=== PATIENT | male | born 1950 | race Caucasian/White ===

== ENCOUNTER 2022-01-07 07:55 | Outpatient (CLI) | payer MEDICARE, BC, SELFPAY | END 2022-01-07 07:56 | disposition home or self-care (01) | LOC: RAD 07:56 | PROVIDERS: PCP Family Medicine; Visit Provider Nurse Practitioner Gerontology | DX: I48.0 Paroxysmal atrial fibrillation (principal) | CPT/HCPCS: 93306 ==

== ENCOUNTER 2022-03-08 08:15 | Outpatient (CLI) | payer MEDICARE, BC, SELFPAY ==
--- NOTE | 2022-03-08 08:15 | CRLHL7_ITS ---
For Patients: As a result of the 21st Century Cures Act, medical imaging exams and procedure reports are released immediately into your electronic medical record. You may view this report before your referring provider. If you have questions, please contact your health care provider. INDICATION: Myelopathy. COMPARISON: 02/05/2021. Technique Sagittal T1, T2, and STIR sequences. Axial T1 and T2 weighted sequences. FINDINGS: Stable mild lumbar curve convex the left. In sagittal plane, grade 2 anterolisthesis of L4 on L5 measured approximately 10 mm. Associated bilateral pars defects. Otherwise, normal alignment. No fractures. No vertebral body loss of height. No ligament injury. No suspicious osseous lesions. Number conus terminates at L1. Congenitally short pedicles contributes to overall narrowed caliber of the spinal canal. T11-12: Disc degeneration posterior disc bulge. Mild narrowing of spinal canal. No neural foraminal narrowing. T12-L1: Disc degeneration post disc bulge. Mild narrowing of spinal canal. No neural foraminal narrowing. Moderate facet arthropathy. L1-2: Disc degeneration. Posterior disc bulge. Moderate narrowing of the spinal canal. No neural foraminal narrowing. Mild facet arthropathy. L2-3: Disc generation posted disc bulge. Moderate narrowing of spinal canal. No neural foraminal narrowing. Mild facet arthropathy. L3-4: Disc degeneration posterior disc bulge. Mild narrowing of spinal canal. Moderate right and clgt-mc-kngvtueu left neural foraminal narrowing. Moderate facet arthropathy. L4-5: Grade 2 anterolisthesis. Advanced disc degeneration. Fusion across the interspace. Unroofed posterior disc bulge. Mild narrowing of spinal canal. Oblique orientation of the bilateral foramina with severe right and moderate severe left neural foraminal narrowing. Impingement of the exiting L4 nerve roots, right greater left. Severe facet arthropathy. L5-S1: Disc degeneration diffuse disc bulge eccentric to the left. No narrowing of spinal canal. No impingement of the traversing S1 nerve roots. Moderate to severe narrowing of the bilateral foramina. Potential impingement of the L5 nerve roots. IMPRESSION: 1. Stable mild lumbar curve convex to the left. 2. Stable grade 2 anterolisthesis of L4 on L5. Associated bilateral pars defects. Otherwise, normal alignment. 3. No acute fractures. 4. Lumbar spondylosis. 5. Congenital short pedicles. 6. At L1-2, moderate narrowing of spinal canal. 7. At L2-3, moderate narrowing of spinal canal. 8. At L3-4, moderate right and rtyt-kj-ywensmep left neural foraminal narrowing. 9. At L4-5, advanced disc degeneration. Mild narrowing of spinal canal. Severe right and moderate to severe left neural foraminal narrowing. Impingement of the exiting L4 nerve roots, right greater than left. 10. At L5-S1, moderate to severe narrowing of the bilateral foramina. Potential impingement of the L5 nerve roots Dictated by Lambert Tang MD @ 03/08/2022 5:03:32 PM (Electronically Signed)
--- NOTE | 2022-03-08 09:00 | CRLHL7_ITS ---
For Patients: As a result of the 21st Century Cures Act, medical imaging exams and procedure reports are released immediately into your electronic medical record. You may view this report before your referring provider. If you have questions, please contact your health care provider. 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 Comparison: None Findings: Near-complete fusion of the L4-5 vertebral bodies noted. 15 millimeters of anterior position of the L4 vertebral body noted in relation to L5 secondary to chronic bilateral pars defects at L4. Extensive discogenic spurring elsewhere throughout the lumbar spine with near complete bridging at L3-4 and L5-S1. Vacuum disc phenomenon noted at L3-4 and L2-3. Extensive anterior spurring also noted at the thoracolumbar junction. Hypertrophic changes to spinous processes noted throughout the lumbar spine. There is no paraspinal soft tissue mass. Vascular calcifications are noted. At L1-2, there is mild bilateral foraminal stenosis and mild canal stenosis secondary to minimal bulging of the disc. At L2-3, there is mild bilateral foraminal stenosis and mild canal stenosis secondary to minimal bulging of the disc with posterior ridging. At L3-4, there is mild-moderate left foraminal stenosis and moderate right foraminal stenosis along with mild canal stenosis secondary to a diffuse disc bulge with posterior ridging and facet degeneration. At L4-5, there is moderately severe right foraminal stenosis and moderate left foraminal stenosis. A diffuse disc bulge is present. The canal is narrowed in the transverse dimension but is widely patent in the AP dimension. At L5-S1, there is moderate bilateral foraminal narrowing and mild canal stenosis secondary to a diffuse disc bulge with posterior ridging. Impression: Osseous fusion at the L4-5 disc space with 15 millimeters of anterior position of the L4 vertebral body in relation to the L5 vertebral body. Associated diffuse disc bulge noted at this level contributing to moderately severe right foraminal stenosis and moderate left foraminal stenosis. The canal is narrowed in the transverse dimension but is patent in the AP dimension. Multilevel degenerative disc disease throughout the remainder of the lumbar spine with exuberant anterior spurring. Moderate bilateral foraminal stenosis L5-S1 and moderate foraminal stenosis on the right at L3-4. Please note that all CT scans at this facility use dose modulation, iterative reconstruction, and/or weight-based dosing when appropriate to reduce radiation dose to as low as reasonably achievable. Dictated by Aden Benavides MD @ 03/08/2022 11:36:14 AM (Electronically Signed)
== END 2022-03-08 08:16 | disposition home or self-care (01) ==
LOC: MRI 08:15
PROVIDERS: PCP Family Medicine; Visit Provider Neurological Surgery
DX: M47.817 Spondylosis without myelopathy or radiculopathy, lumbosacral region (principal); M51.36 Other intervertebral disc degeneration, lumbar region; M48.07 Spinal stenosis, lumbosacral region; M51.26 Other intervertebral disc displacement, lumbar region; G95.9 Disease of spinal cord, unspecified
CPT/HCPCS: 72131; 72148

== ENCOUNTER 2022-05-17 07:15 | Outpatient (CLI) | payer MEDICARE, BC, SELFPAY | END 2022-05-17 07:16 | disposition home or self-care (01) | PROVIDERS: PCP Family Medicine; Visit Provider Family Medicine | DX: M48.062 Spinal stenosis, lumbar region with neurogenic claudication (principal); M54.16 Radiculopathy, lumbar region | CPT/HCPCS: 62323; J0702; Q9966 ==

== ENCOUNTER 2022-08-09 07:33 | Outpatient (CLI) | payer MEDICARE, BC, SELFPAY | END 2022-08-09 07:34 | disposition home or self-care (01) | LOC: INJ CL 07:35 | PROVIDERS: PCP Family Medicine; Visit Provider Family Medicine | DX: M54.16 Radiculopathy, lumbar region (principal); M48.062 Spinal stenosis, lumbar region with neurogenic claudication | CPT/HCPCS: 62323; J0702; Q9966 ==

== ENCOUNTER 2022-11-22 08:13 | Outpatient (CLI) | payer MEDICARE, BC, SELFPAY | END 2022-11-22 08:14 | disposition home or self-care (01) | LOC: INJ CL 08:14 | PROVIDERS: PCP Family Medicine; Visit Provider Family Medicine | DX: M54.16 Radiculopathy, lumbar region (principal); M48.062 Spinal stenosis, lumbar region with neurogenic claudication | CPT/HCPCS: 62323; J0702; Q9966 ==

== ENCOUNTER 2023-01-13 08:05 | Outpatient (CLI) | payer MEDICARE, BC, SELFPAY ==
--- NOTE | 2023-01-13 08:15 | CRLHL7_ITS ---
For Patients: As a result of the Century Cures Act, medical imaging exams and procedure reports are released immediately into your electronic medical record. You may view this report before your referring provider. If you have questions, please contact your health care provider. Indication: Low back pain. Technique: Multiplanar, multisequence MRI of the lumbar spine was performed without intravenous contrast. Comparison: MRI lumbar spine 03/08/2022. Findings: There are 5 lumbar type vertebral segments identified. The vertebral body heights are maintained without evidence of fracture. There is no discrete T1 hypointense marrow infiltrating process. Mild levoconvex curvature. The conus medullaris terminates at L1, normal. Cauda equina appears unremarkable. T12-L1: Mild disc degeneration. Disc bulge with facet hypertrophy resultant mild spinal canal narrowing. No neural foraminal narrowing. Vglc-tp-dzudgpxp facet arthropathy. Stable. L1-2: Disc degeneration. Disc bulge with facet hypertrophy results in mild spinal canal narrowing. No neural foraminal narrowing. Paio-gg-yirlbuco facet arthropathy. Stable. L2-3: Disc degeneration. Disc bulge coupled with facet hypertrophy result in mild spinal canal narrowing. Mild neural foraminal narrowing. Moderate facet arthropathy. Stable. L3-4: Grade 1 degenerative retrolisthesis. Disc degeneration. Disc bulge with facet hypertrophy resulting in mild spinal canal narrowing. Moderate neural foraminal narrowing. Moderate facet arthropathy. L4-5: Grade 2 anterolisthesis secondary to chronic bilateral pars interarticularis defects. Interspace fusion. Moderate to severe spinal canal with moderate to severe neural foraminal stenosis. L5-S1: Grade 1 degenerative retrolisthesis. Mild spinal canal narrowing. Moderate to severe neural foraminal narrowing. Moderate facet arthropathy. Stable. Mild sacroiliac joint osteoarthritis. Left renal cysts. Impression: 1. At L4-5, stable grade 2 anterolisthesis secondary to chronic bilateral pars interarticularis defects. Moderate to severe spinal canal and neural foraminal stenosis. 2. At L5-S1, stable moderate to severe neural foraminal stenosis. 3. Stable vzmt-ib-tpzsoisi spondylosis at the remaining lumbar levels. Dictated by Rao Sainz MD @ 01/16/2023 9:04:47 AM (Electronically Signed)
== END 2023-01-13 08:06 | disposition home or self-care (01) ==
LOC: MRI 08:06
PROVIDERS: PCP Family Medicine; Visit Provider Orthopaedic Surgery Orthopaedic Surgery of the Spine
DX: M54.50 Low back pain, unspecified (principal); M51.36 Other intervertebral disc degeneration, lumbar region; M46.1 Sacroiliitis, not elsewhere classified; N28.1 Cyst of kidney, acquired; M48.062 Spinal stenosis, lumbar region with neurogenic claudication
CPT/HCPCS: 72148

== ENCOUNTER 2023-03-12 16:06 | Emergency (ER) | payer MEDICARE, BC, SELFPAY ==
[2023-03-12] VITALS (49 sets, daily range): BP systolic 90–173; BP diastolic 41–93; PULSE 83–115; RESP 20; TEMP 37.6–38.6; O2SAT 88–99; BMI 37.7
--- NOTE | 2023-03-12 16:38 | CRLHL7_ITS ---
For Patients: As a result of the Cures Act, medical imaging exams and procedure reports are released immediately into your electronic medical record. You may view this report before your referring provider. If you have questions, please contact your health care provider. INDICATION: Fever. History of lumbar decompression. TECHNIQUE: CT images acquired through the thoracic spine following intravenous contrast. COMPARISON: None. FINDINGS: Mildly exaggerated thoracic kyphosis. Mild biconvex thoracic curvature. Mild grade 1 anterolisthesis of T3 on T4, T4 and T5, and T5 on T6. Advanced multilevel disc height loss. Prominent anterior osteophytes in the mid to lower thoracic spine. No acute fracture. Multilevel posterior disc bulging contributes up to at least oylc-eo-rkmnogrp spinal canal narrowing at T10-11. Advanced multilevel facet arthropathy contributes to advanced neural foraminal stenosis bilaterally at T1-2, right T3-4, bilateral T9-10, left T10-11, and right T11-12. No paraspinal fluid collection. No endplate destruction. No concerning opacities in the visualized lungs. IMPRESSION: 1. No paraspinal fluid collection. No endplate destruction to suggest sequelae of discitis osteomyelitis. 2. No acute fracture. 3. Advanced multilevel thoracic spondylosis. Please note that all CT scans at this facility use dose modulation, iterative reconstruction, and/or weight-based dosing when appropriate to reduce radiation dose to as low as reasonably achievable. Dictated by Isiah Schwarz MD @ 03/12/2023 7:50:46 PM (Electronically Signed)
--- NOTE | 2023-03-12 16:38 | CRLHL7_ITS ---
For Patients: As a result of the Century Cures Act, medical imaging exams and procedure reports are released immediately into your electronic medical record. You may view this report before your referring provider. If you have questions, please contact your health care provider. INDICATION: Fever. Lumbar decompression. TECHNIQUE: CT images acquired through the lumbar spine following intravenous contrast. COMPARISON: MRI lumbar spine 01/13/2023. FINDINGS: Postsurgical changes secondary to interval posterior instrumented fusion and laminectomy at L1-2. Standard positioning and alignment of intact and well-seated paired pedicle screws and connecting rods. Immature dorsal bone grafting. Fluid collection within the superficial posterior subcutaneous tissues at midline measuring approximately up to 5.3 cm in craniocaudal dimension. No endplate destruction to suggest sequelae of discitis osteomyelitis. The lumbar lordosis is preserved. Mild leftward lumbar curvature. No acute fracture. Multilevel posterior disc bulging and endplate spondylitic ridging. Kins-tj-rkuaoihx multilevel facet arthropathy. No high-grade spinal canal stenosis. Grade 2 anterolisthesis and vertebral body ankylosis at L4-5. Chronic bilateral L4 pars defects. Advanced right greater left neural foraminal stenosis at L4-5. Moderately severe neural foraminal stenosis on the right at L5-S1. Sacroiliac joint degenerative changes. Incompletely visualized left hip prosthesis. Hypoattenuating lesion in the left kidney superior pole, potentially representing a renal cyst. IMPRESSION: 1. Postsurgical changes secondary to interval posterior instrumented fusion and laminectomy at L1-2. Intact well-seated surgical hardware. Fluid collection within the posterior subcutaneous soft tissues at the operative level is nonspecific, though differential considerations include seroma or superimposed infection in an appropriate clinical setting. No endplate erosion to suggest sequelae of discitis osteomyelitis. 2. No acute fracture. 3. Multilevel lumbar spondylosis. Please note that all CT scans at this facility use dose modulation, iterative reconstruction, and/or weight-based dosing when appropriate to reduce radiation dose to as low as reasonably achievable. Dictated by Isiah Schwarz MD @ 03/12/2023 7:59:15 PM (Electronically Signed)
[2023-03-12 16:43] LABS: Creatinine, Point-of-Care* 1.1 mg/dl (0.6-1.3)
--- NOTE | 2023-03-12 16:45 | ED.GENADULT ---
HPI - General Adult General Date Seen: 03/12/23 <Christopher Arrington - Last Filed: 03/13/23 00:53> Chief complaint: Post Op Complication <Christopher Batsheva Murphy - Last Filed: 03/13/23 00:53> Stated complaint: fever, surgery incision possibly infected <Christopher Arrington - Last Filed: 03/13/23 00:53> Time Seen by Provider: 03/12/23 16:32 <Christopher Arrington DO - Last Filed: 03/13/23 00:53> Source: patient <Christopher Arrington - Last Filed: 03/13/23 00:53> Mode of arrival: ambulatory <Christopher Arrington - Last Filed: 03/13/23 00:53> Limitations: no limitations <Christopher Arrington - Last Filed: 03/13/23 00:53> History of Present Illness HPI narrative: Patient is a 72-year-old male with a history of high blood pressure presenting to the emergency department for fevers and chills. He had back surgery felt L1-L2 decompression and fusion on 02/23/2023 at [facility]. He was discharged the following day. Had a drain in place for about a week after that that was removed. Since then he says he feels dizzy he has been doing all right. Does not have follow-up with his surgeon until April. Noticed today he is having fever and chills that started about 3 hours prior to arrival. Says his pain seems mildly worse than it has been but not severely. Has not taken any Tylenol for pain yet today. Family states they believe the area around the incision site is slightly more red than was previously. Patient denies chest pain, shortness of breath, abdominal pain, lightheadedness, dizziness, weakness, headache, vision changes. They did note mother week ago he had some serosanguineous discharge coming from a small area on the incision site that has stopped. <Christopher Arrington DO - Last Filed: 03/13/23 00:53> Related Data Home medications: Home Medications Medication Instructions Recorded Confirmed apixaban 5 mg tablet (Eliquis) 5 mg PO BID 03/12/23 03/12/23 diltiazem HCl 240 mg 240 mg PO DAILY 03/12/23 03/12/23 capsule,extended release 24 hr, controlled hydrochlorothiazide 25 mg tablet 25 mg PO DAILY 03/12/23 03/12/23 losartan 100 mg tablet 100 mg PO DAILY 03/12/23 03/12/23 tamsulosin 0.4 mg capsule 0.8 mg PO DAILY 03/12/23 03/12/23 methocarbamol 750 mg tablet 750 mg PO Q6H PRN muscle spasm 03/14/23 03/14/23 oxycodone 5 mg tablet 5 - 10 mg PO Q4H PRN 03/14/23 03/14/23 sennosides 8.6 mg-docusate sodium 1 - 4 tab-cap PO BID PRN 03/14/23 03/14/23 50 mg capsule (Senna Plus) <Christopher Arrington DO - Last Filed: 03/13/23 00:53> Allergies/adverse reactions: Allergies Allergy/AdvReac Type Severity Reaction Status Date / Time cefdinir Allergy Verified 11/22/22 08:26 clarithromycin Allergy Verified 11/22/22 08:26 lisinopril Allergy Verified 11/22/22 08:26 <Christopher Arrington DO - Last Filed: 03/13/23 00:53> Review of Systems Status of ROS: Reports: 10 or more systems reviewed and unremarkable except as noted in History and below <Christopher Arrington DO - Last Filed: 03/13/23 00:53> PFSH [facility] Social History: Social History Smoking Status: Never smoker How often do you have a drink containing alcohol: never How often do you have six or more drinks on one occasion: Never AUDIT-C Alcohol total score: 0 Non-prescribed substance use: denies use <Christopher Arrington DO - Last Filed: 03/13/23 00:53> Exam Narrative: Exam Narrative: Const: Well-nourished, Well-developed, in moderate distress, shivering Eyes: PERRL, no conjunctival injection, and symmetrical lids HENT: Atraumatic external nose and ears. Moist mucous membranes. Neck: Symmetric, trachea midline, No thyromegaly. CVS: RRR, No murmurs or gallops. Peripheral pulses 2+ and equal in all extremities RESP: Unlabored respiratory effort. Clear to auscultation bilaterally. GI: Nontender/Nondistended, No rebound or guarding. MSK:Extremities w/o deformity, Normal Active ROM Skin: Warm, Dry. Erythema seen around the incision site on his back but no signs of purulent discharge Neuro: Normal Muscle tone, No focal neurological deficits. Psych: Awake, Alert, & Oriented x3. Appropriate mood and affect. <Christopher Arrington, DO - Last Filed: 03/13/23 00:53> Const: Vital Signs, click to edit/add: Vital Signs - 24 hr 03/14/23 13:00 03/14/23 13:01 03/14/23 13:15 Temperature Pulse Rate 58 L 61 58 L Pulse Rate [Pulse Oximeter] Respiratory Rate Blood Pressure 112/102 H Blood Pressure [Ri ght Upper Arm] Pulse Oximetry 96 93 94 Oxygen Delivery Me thod 03/14/23 13:39 03/14/23 14:02 03/14/23 14:45 Temperature 98.4 F Pulse Rate 65 Pulse Rate [Pulse Oximeter] Respiratory Rate Blood Pressure 112/57 L Blood Pressure [Ri ght Upper Arm] Pulse Oximetry 96 Oxygen Delivery Me thod 03/14/23 17:24 03/14/23 17:28 03/14/23 18:13 Temperature 98.3 F Pulse Rate Pulse Rate [Pulse Oximeter] Respiratory Rate Blood Pressure 97/39 L 113/65 Blood Pressure [Ri ght Upper Arm] Pulse Oximetry Oxygen Delivery Me thod 03/14/23 21:48 03/14/23 22:01 03/14/23 23:02 Temperature Pulse Rate Pulse Rate [Pulse Oximeter] Respiratory Rate Blood Pressure 117/64 106/65 101/53 L Blood Pressure [Ri ght Upper Arm] Pulse Oximetry Oxygen Delivery Me thod 03/15/23 01:10 03/15/23 01:14 03/15/23 08:00 Temperature 98.8 F 98.3 F Pulse Rate 64 Pulse Rate [Pulse Oximeter] 60 Respiratory Rate 20 16 Blood Pressure 131/82 Blood Pressure [Ri ght Upper Arm] 106/59 L Pulse Oximetry 98 94 Oxygen Delivery Me thod Room Air 03/15/23 10:00 03/15/23 11:50 Temperature 98.4 F Pulse Rate Pulse Rate [Pulse Oximeter] 66 61 Respiratory Rate 16 16 Blood Pressure Blood Pressure [Ri ght Upper Arm] 129/67 132/79 Pulse Oximetry 96 96 Oxygen Delivery Me thod Room Air Room Air <Christopher Arrington DO - Last Filed: 03/13/23 00:53> Vital Signs, click to edit/add: Vital Signs - 24 hr 03/14/23 13:00 03/14/23 13:01 03/14/23 13:15 Temperature Pulse Rate 58 L 61 58 L Pulse Rate [Pulse Oximeter] Respiratory Rate Blood Pressure 112/102 H Blood Pressure [Ri ght Upper Arm] Pulse Oximetry 96 93 94 Oxygen Delivery Me thod 03/14/23 13:39 03/14/23 14:02 03/14/23 14:45 Temperature 98.4 F Pulse Rate 65 Pulse Rate [Pulse Oximeter] Respiratory Rate Blood Pressure 112/57 L Blood Pressure [Ri ght Upper Arm] Pulse Oximetry 96 Oxygen Delivery Me thod 03/14/23 17:24 03/14/23 17:28 03/14/23 18:13 Temperature 98.3 F Pulse Rate Pulse Rate [Pulse Oximeter] Respiratory Rate Blood Pressure 97/39 L 113/65 Blood Pressure [Ri ght Upper Arm] Pulse Oximetry Oxygen Delivery Me thod 03/14/23 21:48 03/14/23 22:01 03/14/23 23:02 Temperature Pulse Rate Pulse Rate [Pulse Oximeter] Respiratory Rate Blood Pressure 117/64 106/65 101/53 L Blood Pressure [Ri ght Upper Arm] Pulse Oximetry Oxygen Delivery Me thod 03/15/23 01:10 03/15/23 01:14 03/15/23 08:00 Temperature 98.8 F 98.3 F Pulse Rate 64 Pulse Rate [Pulse Oximeter] 60 Respiratory Rate 20 16 Blood Pressure 131/82 Blood Pressure [Ri ght Upper Arm] 106/59 L Pulse Oximetry 98 94 Oxygen Delivery Me thod Room Air 03/15/23 10:00 03/15/23 11:50 Temperature 98.4 F Pulse Rate Pulse Rate [Pulse Oximeter] 66 61 Respiratory Rate 16 16 Blood Pressure Blood Pressure [Ri ght Upper Arm] 129/67 132/79 Pulse Oximetry 96 96 Oxygen Delivery Me thod Room Air Room Air <Nhi Avalos MD - Last Filed: 03/13/23 18:55> Vital Signs, click to edit/add: Vital Signs - 24 hr 03/14/23 13:00 03/14/23 13:01 03/14/23 13:15 Temperature Pulse Rate 58 L 61 58 L Pulse Rate [Pulse Oximeter] Respiratory Rate Blood Pressure 112/102 H Blood Pressure [Ri ght Upper Arm] Pulse Oximetry 96 93 94 Oxygen Delivery Me thod 03/14/23 13:39 03/14/23 14:02 03/14/23 14:45 Temperature 98.4 F Pulse Rate 65 Pulse Rate [Pulse Oximeter] Respiratory Rate Blood Pressure 112/57 L Blood Pressure [Ri ght Upper Arm] Pulse Oximetry 96 Oxygen Delivery Me thod 03/14/23 17:24 03/14/23 17:28 03/14/23 18:13 Temperature 98.3 F Pulse Rate Pulse Rate [Pulse Oximeter] Respiratory Rate Blood Pressure 97/39 L 113/65 Blood Pressure [Ri ght Upper Arm] Pulse Oximetry Oxygen Delivery Me thod 03/14/23 21:48 03/14/23 22:01 03/14/23 23:02 Temperature Pulse Rate Pulse Rate [Pulse Oximeter] Respiratory Rate Blood Pressure 117/64 106/65 101/53 L Blood Pressure [Ri ght Upper Arm] Pulse Oximetry Oxygen Delivery Me thod 03/15/23 01:10 03/15/23 01:14 03/15/23 08:00 Temperature 98.8 F 98.3 F Pulse Rate 64 Pulse Rate [Pulse Oximeter] 60 Respiratory Rate 20 16 Blood Pressure 131/82 Blood Pressure [Ri ght Upper Arm] 106/59 L Pulse Oximetry 98 94 Oxygen Delivery Me thod Room Air 03/15/23 10:00 03/15/23 11:50 Temperature 98.4 F Pulse Rate Pulse Rate [Pulse Oximeter] 66 61 Respiratory Rate 16 16 Blood Pressure Blood Pressure [Ri ght Upper Arm] 129/67 132/79 Pulse Oximetry 96 96 Oxygen Delivery Me thod Room Air Room Air <Aden Coorna MD - Last Filed: 03/15/23 11:42> Vital Signs, click to edit/add: Vital Signs - 24 hr 03/14/23 13:00 03/14/23 13:01 03/14/23 13:15 Temperature Pulse Rate 58 L 61 58 L Pulse Rate [Pulse Oximeter] Respiratory Rate Blood Pressure 112/102 H Blood Pressure [Ri ght Upper Arm] Pulse Oximetry 96 93 94 Oxygen Delivery Me thod 03/14/23 13:39 03/14/23 14:02 03/14/23 14:45 Temperature 98.4 F Pulse Rate 65 Pulse Rate [Pulse Oximeter] Respiratory Rate Blood Pressure 112/57 L Blood Pressure [Ri ght Upper Arm] Pulse Oximetry 96 Oxygen Delivery Me thod 03/14/23 17:24 03/14/23 17:28 03/14/23 18:13 Temperature 98.3 F Pulse Rate Pulse Rate [Pulse Oximeter] Respiratory Rate Blood Pressure 97/39 L 113/65 Blood Pressure [Ri ght Upper Arm] Pulse Oximetry Oxygen Delivery Me thod 03/14/23 21:48 03/14/23 22:01 03/14/23 23:02 Temperature Pulse Rate Pulse Rate [Pulse Oximeter] Respiratory Rate Blood Pressure 117/64 106/65 101/53 L Blood Pressure [Ri ght Upper Arm] Pulse Oximetry Oxygen Delivery Me thod 03/15/23 01:10 03/15/23 01:14 03/15/23 08:00 Temperature 98.8 F 98.3 F Pulse Rate 64 Pulse Rate [Pulse Oximeter] 60 Respiratory Rate 20 16 Blood Pressure 131/82 Blood Pressure [Ri ght Upper Arm] 106/59 L Pulse Oximetry 98 94 Oxygen Delivery Me thod Room Air 03/15/23 10:00 03/15/23 11:50 Temperature 98.4 F Pulse Rate Pulse Rate [Pulse Oximeter] 66 61 Respiratory Rate 16 16 Blood Pressure Blood Pressure [Ri ght Upper Arm] 129/67 132/79 Pulse Oximetry 96 96 Oxygen Delivery Me thod Room Air Room Air <Dennis Calderon MD - Last Filed: 03/14/23 16:23> Vital Signs, click to edit/add: Vital Signs - 24 hr 03/14/23 13:00 03/14/23 13:01 03/14/23 13:15 Temperature Pulse Rate 58 L 61 58 L Pulse Rate [Pulse Oximeter] Respiratory Rate Blood Pressure 112/102 H Blood Pressure [Ri ght Upper Arm] Pulse Oximetry 96 93 94 Oxygen Delivery Me thod 03/14/23 13:39 03/14/23 14:02 03/14/23 14:45 Temperature 98.4 F Pulse Rate 65 Pulse Rate [Pulse Oximeter] Respiratory Rate Blood Pressure 112/57 L Blood Pressure [Ri ght Upper Arm] Pulse Oximetry 96 Oxygen Delivery Me thod 03/14/23 17:24 03/14/23 17:28 03/14/23 18:13 Temperature 98.3 F Pulse Rate Pulse Rate [Pulse Oximeter] Respiratory Rate Blood Pressure 97/39 L 113/65 Blood Pressure [Ri ght Upper Arm] Pulse Oximetry Oxygen Delivery Me thod 03/14/23 21:48 03/14/23 22:01 03/14/23 23:02 Temperature Pulse Rate Pulse Rate [Pulse Oximeter] Respiratory Rate Blood Pressure 117/64 106/65 101/53 L Blood Pressure [Ri ght Upper Arm] Pulse Oximetry Oxygen Delivery Me thod 03/15/23 01:10 03/15/23 01:14 03/15/23 08:00 Temperature 98.8 F 98.3 F Pulse Rate 64 Pulse Rate [Pulse Oximeter] 60 Respiratory Rate 20 16 Blood Pressure 131/82 Blood Pressure [Ri ght Upper Arm] 106/59 L Pulse Oximetry 98 94 Oxygen Delivery Me thod Room Air 03/15/23 10:00 03/15/23 11:50 Temperature 98.4 F Pulse Rate Pulse Rate [Pulse Oximeter] 66 61 Respiratory Rate 16 16 Blood Pressure Blood Pressure [Ri ght Upper Arm] 129/67 132/79 Pulse Oximetry 96 96 Oxygen Delivery Me thod Room Air Room Air <Amadeo Richmond MD - Last Filed: 03/17/23 08:23> Vital Signs, click to edit/add: Vital Signs - 24 hr 03/14/23 13:00 03/14/23 13:01 03/14/23 13:15 Temperature Pulse Rate 58 L 61 58 L Pulse Rate [Pulse Oximeter] Respiratory Rate Blood Pressure 112/102 H Blood Pressure [Ri ght Upper Arm] Pulse Oximetry 96 93 94 Oxygen Delivery Me thod 03/14/23 13:39 03/14/23 14:02 03/14/23 14:45 Temperature 98.4 F Pulse Rate 65 Pulse Rate [Pulse Oximeter] Respiratory Rate Blood Pressure 112/57 L Blood Pressure [Ri ght Upper Arm] Pulse Oximetry 96 Oxygen Delivery Me thod 03/14/23 17:24 03/14/23 17:28 03/14/23 18:13 Temperature 98.3 F Pulse Rate Pulse Rate [Pulse Oximeter] Respiratory Rate Blood Pressure 97/39 L 113/65 Blood Pressure [Ri ght Upper Arm] Pulse Oximetry Oxygen Delivery Me thod 03/14/23 21:48 03/14/23 22:01 03/14/23 23:02 Temperature Pulse Rate Pulse Rate [Pulse Oximeter] Respiratory Rate Blood Pressure 117/64 106/65 101/53 L Blood Pressure [Ri ght Upper Arm] Pulse Oximetry Oxygen Delivery Me thod 03/15/23 01:10 03/15/23 01:14 03/15/23 08:00 Temperature 98.8 F 98.3 F Pulse Rate 64 Pulse Rate [Pulse Oximeter] 60 Respiratory Rate 20 16 Blood Pressure 131/82 Blood Pressure [Ri ght Upper Arm] 106/59 L Pulse Oximetry 98 94 Oxygen Delivery Me thod Room Air 03/15/23 10:00 03/15/23 11:50 Temperature 98.4 F Pulse Rate Pulse Rate [Pulse Oximeter] 66 61 Respiratory Rate 16 16 Blood Pressure Blood Pressure [Ri ght Upper Arm] 129/67 132/79 Pulse Oximetry 96 96 Oxygen Delivery Me thod Room Air Room Air <Tomás Atwood MD - Last Filed: 04/11/23 08:03> Course Reevaluation(s) Time of Reevaluation #1: 08:19 <Nhi Avalos MD - Last Filed: 03/13/23 18:55> Reevaluation #1: Have her introduce myself to the patient, checked on him briefly. He is alert, interactive, no apparent distress. He is febrile this morning. Confirmed with him that they do not want him on NSAIDs due to his spinal surgery, he did have both cadaver and his own bone used in the surgery. Thus, he is to be avoiding NSAIDs for 3 months. We have him on scheduled Tylenol. Did find out that he is on Eliquis and diltiazem for underlying history of atrial fibrillation. He states he has had an ablation prior but is maintained on these medicines. He has been taking his Eliquis. Will give him his morning doses which would include his diltiazem and Eliquis, may need to hold after this morning dose though. His MRI with IV contrast has been moved up due to a cancellation. <Nhi Avalos MD - Last Filed: 03/13/23 18:55> Time of Reevaluation #2: 16:57 <Nhi Avalos MD - Last Filed: 03/13/23 18:55> Reevaluation #2: Let patient know we are still waiting to hear from [facility] for bed placement. He is to expect of blood draw for labs, will be rechecking some of his labs including white blood count, C reactive protein, basic metabolic panel. He remains hemodynamically stable, still is spiking fevers at times. Did review to hold his Eliquis at this time, will likely be having surgery in the very near future. Patient's notes that he also takes losartan at bedtime. They withheld at last night, would see where his blood pressures are but likely will be holding. <Nhi Avalos MD - Last Filed: 03/13/23 18:55> Time of Reevaluation #3: 07:00 <Aden Corona MD - Last Filed: 03/15/23 11:42> Reevaluation #3: Chloe -- Received Mr. Rasheed in handoff at change of shift. Pending transport to [facility]. Septicemia. Likely source surgery in the lumbar spine. Pressures have been stable overnight. Afebrile. Has received scheduled Zosyn and vancomycin. Has not required any intervention for pain. Wound continues to drain with believe 3 dressing changes overnight. He reports he has managed to sleep. Still NPO at this time. Pending morning labs. <Aden Corona MD - Last Filed: 03/15/23 11:42> Additional Reevaluation(s): Re-evaluated now, at 10:30 a.m., patient reports that he is doing better, in him both requested information on what is ongoing, explained to him that overall is parameters are improved, with vital signs markedly improved, white count improving, CRP still elevated, and MRI consistent with a postoperative infection, with rim enhancement. Is 1. On the transfer list [facility] as requested by his spine surgeon, they are in agreement with this, we will continue with ongoing medication, he has not needed any pain medication. Re-evaluated at 4:22 p.m., I had spoken to his physicians at the [facility], he still on the waiting list at [facility], would like them to transfer room to [facility], but reassessment tomorrow, if he still not able to be transferred [facility] by tomorrow, then consideration of transfer to [facility] as Dr. Vigil has a OR time there later in the week. This is communicated to the oncoming physician Dr. De, who is taking over care. I did restart his home medications, had pharmacy do a consult, he was on Eliquis, we will hold this, as he will likely go to the ER, and give him subcutaneous heparin, twice daily, <Dennis Calderon MD - Last Filed: 03/14/23 16:23> Re-evaluated now, at 10:30 a.m., patient reports that he is doing better, in him both requested information on what is ongoing, explained to him that overall is parameters are improved, with vital signs markedly improved, white count improving, CRP still elevated, and MRI consistent with a postoperative infection, with rim enhancement. Is 1. On the transfer list [facility] as requested by his spine surgeon, they are in agreement with this, we will continue with ongoing medication, he has not needed any pain medication. Re-evaluated at 4:22 p.m., I had spoken to his physicians at the [facility], he still on the waiting list at [facility], would like them to transfer room to [facility], but reassessment tomorrow, if he still not able to be transferred [facility] by tomorrow, then consideration of transfer to [facility] as Dr. Vigil has a OR time there later in the week. This is communicated to the oncoming physician Dr. De, who is taking over care. I did restart his home medications, had pharmacy do a consult, he was on Eliquis, we will hold this, as he will likely go to the ER, and give him subcutaneous heparin, twice daily, 12:30 a.m. assumed care from Dr. De. Briefly, 72-year-old male who underwent lumbar diskectomy and decompression with fusion at L1-L2 on a couple weeks ago, presents with increasing pain as well as fever and chills. CRP elevated, white blood cell count elevated to 17,000 on initial arrival. Patient is getting vancomycin. Blood cultures positive for Gram-positive cocci. Patient is waiting for transfer to [facility], surgery was done [facility] but surgeon would prefer to have him at [facility]. If no beds available tomorrow morning, consider transfer to [facility]. <Amadeo Richmond MD - Last Filed: 03/17/23 08:23> Consultations Consultation #1: Spoke with on-call spine surgeon Dr. Vicente from [facility]. Reviewed the current MRI, patient is admittedly hemodynamically stable at this time. His surgeon was in clinic with her, she did speak with Dr. Vigil. He wants him at [facility] and not [facility], he will be still on the wait list at this time. Will update them when I have time to let them know my conversation with the surgeon. <Nhi Avalos MD - Last Filed: 03/13/23 18:55> Time: 15:16 <Nhi Avalos MD - Last Filed: 03/13/23 18:55> Vital Signs Vital signs: Initial Vital Signs Temperature 100.3 F H 03/12/23 16:22 Temperature Source Temporal Artery Scan 03/12/23 16:22 Pulse Rate 103 H 03/12/23 16:22 Respiratory Rate 20 03/12/23 16:22 Blood Pressure 144/91 H 03/12/23 16:22 Blood Pressure Mean 108 H 03/12/23 16:22 Pulse Oximetry 97 03/12/23 16:22 Vital Signs Temperature 100.3 F H 03/12/23 16:22 Pulse Rate 103 H 03/12/23 16:22 Respiratory Rate 20 03/12/23 16:22 Blood Pressure 144/91 H 03/12/23 16:22 Pulse Oximetry 97 03/12/23 16:22 Temperature 98.5 F 03/15/23 19:00 Pulse Rate 73 03/15/23 19:00 Respiratory Rate 16 03/15/23 19:00 Blood Pressure 119/58 L 03/15/23 19:00 Pulse Oximetry 96 03/15/23 19:00 Oxygen Delivery Method Room Air 03/15/23 19:00 <Christopher Arrington DO - Last Filed: 03/13/23 00:53> Initial Vital Signs Temperature 100.3 F H 03/12/23 16:22 Temperature Source Temporal Artery Scan 03/12/23 16:22 Pulse Rate 103 H 03/12/23 16:22 Respiratory Rate 20 03/12/23 16:22 Blood Pressure 144/91 H 03/12/23 16:22 Blood Pressure Mean 108 H 03/12/23 16:22 Pulse Oximetry 97 03/12/23 16:22 Vital Signs Temperature 100.3 F H 03/12/23 16:22 Pulse Rate 103 H 03/12/23 16:22 Respiratory Rate 20 03/12/23 16:22 Blood Pressure 144/91 H 03/12/23 16:22 Pulse Oximetry 97 03/12/23 16:22 Temperature 98.5 F 03/15/23 19:00 Pulse Rate 73 03/15/23 19:00 Respiratory Rate 16 03/15/23 19:00 Blood Pressure 119/58 L 03/15/23 19:00 Pulse Oximetry 96 03/15/23 19:00 Oxygen Delivery Method Room Air 03/15/23 19:00 <Nhi Avalos MD - Last Filed: 03/13/23 18:55> Initial Vital Signs Temperature 100.3 F H 03/12/23 16:22 Temperature Source Temporal Artery Scan 03/12/23 16:22 Pulse Rate 103 H 03/12/23 16:22 Respiratory Rate 20 03/12/23 16:22 Blood Pressure 144/91 H 03/12/23 16:22 Blood Pressure Mean 108 H 03/12/23 16:22 Pulse Oximetry 97 03/12/23 16:22 Vital Signs Temperature 100.3 F H 03/12/23 16:22 Pulse Rate 103 H 03/12/23 16:22 Respiratory Rate 20 03/12/23 16:22 Blood Pressure 144/91 H 03/12/23 16:22 Pulse Oximetry 97 03/12/23 16:22 Temperature 98.5 F 03/15/23 19:00 Pulse Rate 73 03/15/23 19:00 Respiratory Rate 16 03/15/23 19:00 Blood Pressure 119/58 L 03/15/23 19:00 Pulse Oximetry 96 03/15/23 19:00 Oxygen Delivery Method Room Air 03/15/23 19:00 <Aden Corona MD - Last Filed: 03/15/23 11:42> Initial Vital Signs Temperature 100.3 F H 03/12/23 16:22 Temperature Source Temporal Artery Scan 03/12/23 16:22 Pulse Rate 103 H 03/12/23 16:22 Respiratory Rate 20 03/12/23 16:22 Blood Pressure 144/91 H 03/12/23 16:22 Blood Pressure Mean 108 H 03/12/23 16:22 Pulse Oximetry 97 03/12/23 16:22 Vital Signs Temperature 100.3 F H 03/12/23 16:22 Pulse Rate 103 H 03/12/23 16:22 Respiratory Rate 20 03/12/23 16:22 Blood Pressure 144/91 H 03/12/23 16:22 Pulse Oximetry 97 03/12/23 16:22 Temperature 98.5 F 03/15/23 19:00 Pulse Rate 73 03/15/23 19:00 Respiratory Rate 16 03/15/23 19:00 Blood Pressure 119/58 L 03/15/23 19:00 Pulse Oximetry 96 03/15/23 19:00 Oxygen Delivery Method Room Air 03/15/23 19:00 <Dennis Calderon MD - Last Filed: 03/14/23 16:23> Initial Vital Signs Temperature 100.3 F H 03/12/23 16:22 Temperature Source Temporal Artery Scan 03/12/23 16:22 Pulse Rate 103 H 03/12/23 16:22 Respiratory Rate 20 03/12/23 16:22 Blood Pressure 144/91 H 03/12/23 16:22 Blood Pressure Mean 108 H 03/12/23 16:22 Pulse Oximetry 97 03/12/23 16:22 Vital Signs Temperature 100.3 F H 03/12/23 16:22 Pulse Rate 103 H 03/12/23 16:22 Respiratory Rate 20 03/12/23 16:22 Blood Pressure 144/91 H 03/12/23 16:22 Pulse Oximetry 97 03/12/23 16:22 Temperature 98.5 F 03/15/23 19:00 Pulse Rate 73 03/15/23 19:00 Respiratory Rate 16 03/15/23 19:00 Blood Pressure 119/58 L 03/15/23 19:00 Pulse Oximetry 96 03/15/23 19:00 Oxygen Delivery Method Room Air 03/15/23 19:00 <Amadeo Richmond MD - Last Filed: 03/17/23 08:23> Initial Vital Signs Temperature 100.3 F H 03/12/23 16:22 Temperature Source Temporal Artery Scan 03/12/23 16:22 Pulse Rate 103 H 03/12/23 16:22 Respiratory Rate 20 03/12/23 16:22 Blood Pressure 144/91 H 03/12/23 16:22 Blood Pressure Mean 108 H 03/12/23 16:22 Pulse Oximetry 97 03/12/23 16:22 Vital Signs Temperature 100.3 F H 03/12/23 16:22 Pulse Rate 103 H 03/12/23 16:22 Respiratory Rate 20 03/12/23 16:22 Blood Pressure 144/91 H 03/12/23 16:22 Pulse Oximetry 97 03/12/23 16:22 Temperature 98.5 F 03/15/23 19:00 Pulse Rate 73 03/15/23 19:00 Respiratory Rate 16 03/15/23 19:00 Blood Pressure 119/58 L 03/15/23 19:00 Pulse Oximetry 96 03/15/23 19:00 Oxygen Delivery Method Room Air 03/15/23 19:00 <Tomás Atwood MD - Last Filed: 04/11/23 08:03> Medications Administered Medications: Discontinued Medications Generic Name Dose Route Start Last Admin Trade Name Morisq PRN Reason Stop Dose Admin Acetaminophen 650 mg 03/12/23 16:45 03/12/23 17:06 Acetaminophen 325 Mg Tablet PO 03/12/23 16:46 650 mg ONCE ONE Administration Acetaminophen 325 mg 03/12/23 18:18 03/12/23 18:19 Acetaminophen 325 Mg Tablet PO 03/12/23 18:19 325 mg ONCE ONE Administration Acetaminophen 650 mg 03/12/23 22:24 03/12/23 22:29 Acetaminophen 325 Mg Tablet PO 03/12/23 22:25 650 mg ONCE ONE Administration Acetaminophen 1,000 mg 03/13/23 02:30 03/15/23 20:20 Acetaminophen 500 Mg Tablet PO 1,000 mg Q6H LUDIVINA Administration Diltiazem HCl 240 mg 03/14/23 16:15 03/15/23 09:40 Diltiazem 240 Mg Cap (Cd) PO 240 mg DAILY LUDIVINA Administration Heparin Sodium (Porcine) 5,000 unit 03/14/23 16:20 03/15/23 16:20 Heparin 5,000 Unit/0.5 Ml Inj SUBCUT 5,000 unit Q12H LUDIVINA Administration Hydrochlorothiazide 25 mg 03/14/23 16:20 03/15/23 09:40 Hydrochlorothiazide 25 Mg Tablet PO 25 mg DAILY LUDIVINA Administration Lactated Ringer's 1,000 mls @ 1,000 mls/hr 03/12/23 16:38 03/12/23 19:03 Lactated Ringers 1000 Ml IV 03/12/23 17:37 Infused .Q1H ONE Infusion Lactated Ringer's 1,000 mls @ 1,000 mls/hr 03/12/23 19:44 03/12/23 20:52 Lactated Ringers 1000 Ml IV 03/12/23 20:43 Infused .Q1H ONE Infusion Vancomycin HCl 2,000 mg/ 520 mls @ 260 mls/hr 03/12/23 20:03 03/12/23 22:40 Sodium Chloride IVPB 03/12/23 20:04 Infused ONCE ONE Infusion Protocol Piperacillin Sod/Tazobactam 100 mls @ 200 mls/hr 03/12/23 20:03 03/12/23 20:52 Sod 3.375 gm/ Sodium Chloride IVPB 03/12/23 20:04 Infused ONCE ONE Infusion Lactated Ringer's 1,000 mls @ 1,700 mls/hr 03/12/23 20:23 03/12/23 21:58 Lactated Ringers 1000 Ml IV 03/12/23 20:58 Infused .Q36M ONE Infusion Sodium Chloride 250 mls @ 250 mls/hr 03/12/23 21:34 03/12/23 22:10 0.9 % Sodium Chloride 250 Ml IV 03/12/23 22:33 Infused .Q1H ONE Infusion Piperacillin Sod/Tazobactam 100 mls @ 200 mls/hr 03/13/23 02:00 03/15/23 20:20 Sod 3.375 gm/ Sodium Chloride IVPB Infused Q6H LUD[facility]INA Infusion Vancomycin HCl 1,750 mg/ 517.5 mls @ 258.75 mls/hr 03/13/23 08:00 03/15/23 20:19 Sodium Chloride IVPB 250 mls/hr Q12H LUDIVINA Administration Protocol Loperamide HCl 4 mg 03/15/23 09:44 03/15/23 10:00 Loperamide Hcl 2 Mg Capsule PO 03/15/23 09:45 4 mg ONCE ONE Administration Losartan Potassium 100 mg 03/14/23 16:20 03/15/23 09:40 Losartan Potassium 50 Mg Tablet PO 100 mg DAILY LUDIVINA Administration Ondansetron HCl 4 mg 03/12/23 16:57 03/12/23 17:06 Ondansetron 2 Mg/Ml Inj IVP 03/12/23 16:58 4 mg ONCE ONE Administration Tamsulosin HCl 0.4 mg 03/14/23 16:20 03/15/23 10:00 Tamsulosin Hcl 0.4 Mg Capsule PO 0.4 mg DAILY LUDIVINA Administration <Christopher Arrington, DO - Last Filed: 03/13/23 00:53> Discontinued Medications Generic Name Dose Route Start Last Admin Trade Name Freq PRN Reason Stop Dose Admin Acetaminophen 650 mg 03/12/23 16:45 03/12/23 17:06 Acetaminophen 325 Mg Tablet PO 03/12/23 16:46 650 mg ONCE ONE Administration Acetaminophen 325 mg 03/12/23 18:18 03/12/23 18:19 Acetaminophen 325 Mg Tablet PO 03/12/23 18:19 325 mg ONCE ONE Administration Acetaminophen 650 mg 03/12/23 22:24 03/12/23 22:29 Acetaminophen 325 Mg Tablet PO 03/12/23 22:25 650 mg ONCE ONE Administration Acetaminophen 1,000 mg 03/13/23 02:30 03/15/23 20:20 Acetaminophen 500 Mg Tablet PO 1,000 mg Q6H LUDIVINA Administration Diltiazem HCl 240 mg 03/14/23 16:15 03/15/23 09:40 Diltiazem 240 Mg Cap (Cd) PO 240 mg DAILY LUDIVINA Administration Heparin Sodium (Porcine) 5,000 unit 03/14/23 16:20 03/15/23 16:20 Heparin 5,000 Unit/0.5 Ml Inj SUBCUT 5,000 unit Q12H LUDIVINA Administration Hydrochlorothiazide 25 mg 03/14/23 16:20 03/15/23 09:40 Hydrochlorothiazide 25 Mg Tablet PO 25 mg DAILY LUDIVINA Administration Lactated Ringer's 1,000 mls @ 1,000 mls/hr 03/12/23 16:38 03/12/23 19:03 Lactated Ringers 1000 Ml IV 03/12/23 17:37 Infused .Q1H ONE Infusion Lactated Ringer's 1,000 mls @ 1,000 mls/hr 03/12/23 19:44 03/12/23 20:52 Lactated Ringers 1000 Ml IV 03/12/23 20:43 Infused .Q1H ONE Infusion Vancomycin HCl 2,000 mg/ 520 mls @ 260 mls/hr 03/12/23 20:03 03/12/23 22:40 Sodium Chloride IVPB 03/12/23 20:04 Infused ONCE ONE Infusion Protocol Piperacillin Sod/Tazobactam 100 mls @ 200 mls/hr 03/12/23 20:03 03/12/23 20:52 Sod 3.375 gm/ Sodium Chloride IVPB 03/12/23 20:04 Infused ONCE ONE Infusion Lactated Ringer's 1,000 mls @ 1,700 mls/hr 03/12/23 20:23 03/12/23 21:58 Lactated Ringers 1000 Ml IV 03/12/23 20:58 Infused .Q36M ONE Infusion Sodium Chloride 250 mls @ 250 mls/hr 03/12/23 21:34 03/12/23 22:10 0.9 % Sodium Chloride 250 Ml IV 03/12/23 22:33 Infused .Q1H ONE Infusion Piperacillin Sod/Tazobactam 100 mls @ 200 mls/hr 03/13/23 02:00 03/15/23 20:20 Sod 3.375 gm/ Sodium Chloride IVPB Infused Q6H L[facility]INA Infusion Vancomycin HCl 1,750 mg/ 517.5 mls @ 258.75 mls/hr 03/13/23 08:00 03/15/23 20:19 Sodium Chloride IVPB 250 mls/hr Q12H LUDIVINA Administration Protocol Loperamide HCl 4 mg 03/15/23 09:44 03/15/23 10:00 Loperamide Hcl 2 Mg Capsule PO 03/15/23 09:45 4 mg ONCE ONE Administration Losartan Potassium 100 mg 03/14/23 16:20 03/15/23 09:40 Losartan Potassium 50 Mg Tablet PO 100 mg DAILY LUDIVINA Administration Ondansetron HCl 4 mg 03/12/23 16:57 03/12/23 17:06 Ondansetron 2 Mg/Ml Inj IVP 03/12/23 16:58 4 mg ONCE ONE Administration Tamsulosin HCl 0.4 mg 03/14/23 16:20 03/15/23 10:00 Tamsulosin Hcl 0.4 Mg Capsule PO 0.4 mg DAILY LUDIVINA Administration <Nhi Avalos MD - Last Filed: 03/13/23 18:55> Discontinued Medications Generic Name Dose Route Start Last Admin Trade Name Haja PRN Reason Stop Dose Admin Acetaminophen 650 mg 03/12/23 16:45 03/12/23 17:06 Acetaminophen 325 Mg Tablet PO 03/12/23 16:46 650 mg ONCE ONE Administration Acetaminophen 325 mg 03/12/23 18:18 03/12/23 18:19 Acetaminophen 325 Mg Tablet PO 03/12/23 18:19 325 mg ONCE ONE Administration Acetaminophen 650 mg 03/12/23 22:24 03/12/23 22:29 Acetaminophen 325 Mg Tablet PO 03/12/23 22:25 650 mg ONCE ONE Administration Acetaminophen 1,000 mg 03/13/23 02:30 03/15/23 20:20 Acetaminophen 500 Mg Tablet PO 1,000 mg Q6H LUDIVINA Administration Diltiazem HCl 240 mg 03/14/23 16:15 03/15/23 09:40 Diltiazem 240 Mg Cap (Cd) PO 240 mg DAILY LUDIVINA Administration Heparin Sodium (Porcine) 5,000 unit 03/14/23 16:20 03/15/23 16:20 Heparin 5,000 Unit/0.5 Ml Inj SUBCUT 5,000 unit Q12H LUDIVINA Administration Hydrochlorothiazide 25 mg 03/14/23 16:20 03/15/23 09:40 Hydrochlorothiazide 25 Mg Tablet PO 25 mg DAILY LUDIVINA Administration Lactated Ringer's 1,000 mls @ 1,000 mls/hr 03/12/23 16:38 03/12/23 19:03 Lactated Ringers 1000 Ml IV 03/12/23 17:37 Infused .Q1H ONE Infusion Lactated Ringer's 1,000 mls @ 1,000 mls/hr 03/12/23 19:44 03/12/23 20:52 Lactated Ringers 1000 Ml IV 03/12/23 20:43 Infused .Q1H ONE Infusion Vancomycin HCl 2,000 mg/ 520 mls @ 260 mls/hr 03/12/23 20:03 03/12/23 22:40 Sodium Chloride IVPB 03/12/23 20:04 Infused ONCE ONE Infusion Protocol Piperacillin Sod/Tazobactam 100 mls @ 200 mls/hr 03/12/23 20:03 03/12/23 20:52 Sod 3.375 gm/ Sodium Chloride IVPB 03/12/23 20:04 Infused ONCE ONE Infusion Lactated Ringer's 1,000 mls @ 1,700 mls/hr 03/12/23 20:23 03/12/23 21:58 Lactated Ringers 1000 Ml IV 03/12/23 20:58 Infused .Q36M ONE Infusion Sodium Chloride 250 mls @ 250 mls/hr 03/12/23 21:34 03/12/23 22:10 0.9 % Sodium Chloride 250 Ml IV 03/12/23 22:33 Infused .Q1H ONE Infusion Piperacillin Sod/Tazobactam 100 mls @ 200 mls/hr 03/13/23 02:00 03/15/23 20:20 Sod 3.375 gm/ Sodium Chloride IVPB Infused Q6H L[facility]INA Infusion Vancomycin HCl 1,750 mg/ 517.5 mls @ 258.75 mls/hr 03/13/23 08:00 03/15/23 20:19 Sodium Chloride IVPB 250 mls/hr Q12H LUDIVINA Administration Protocol Loperamide HCl 4 mg 03/15/23 09:44 03/15/23 10:00 Loperamide Hcl 2 Mg Capsule PO 03/15/23 09:45 4 mg ONCE ONE Administration Losartan Potassium 100 mg 03/14/23 16:20 03/15/23 09:40 Losartan Potassium 50 Mg Tablet PO 100 mg DAILY LUDIVINA Administration Ondansetron HCl 4 mg 03/12/23 16:57 03/12/23 17:06 Ondansetron 2 Mg/Ml Inj IVP 03/12/23 16:58 4 mg ONCE ONE Administration Tamsulosin HCl 0.4 mg 03/14/23 16:20 03/15/23 10:00 Tamsulosin Hcl 0.4 Mg Capsule PO 0.4 mg DAILY LUDIVINA Administration <Aden Corona MD - Last Filed: 03/15/23 11:42> Discontinued Medications Generic Name Dose Route Start Last Admin Trade Name Freq PRN Reason Stop Dose Admin Acetaminophen 650 mg 03/12/23 16:45 03/12/23 17:06 Acetaminophen 325 Mg Tablet PO 03/12/23 16:46 650 mg ONCE ONE Administration Acetaminophen 325 mg 03/12/23 18:18 03/12/23 18:19 Acetaminophen 325 Mg Tablet PO 03/12/23 18:19 325 mg ONCE ONE Administration Acetaminophen 650 mg 03/12/23 22:24 03/12/23 22:29 Acetaminophen 325 Mg Tablet PO 03/12/23 22:25 650 mg ONCE ONE Administration Acetaminophen 1,000 mg 03/13/23 02:30 03/15/23 20:20 Acetaminophen 500 Mg Tablet PO 1,000 mg Q6H LUDIVINA Administration Diltiazem HCl 240 mg 03/14/23 16:15 03/15/23 09:40 Diltiazem 240 Mg Cap (Cd) PO 240 mg DAILY LUDIVINA Administration Heparin Sodium (Porcine) 5,000 unit 03/14/23 16:20 03/15/23 16:20 Heparin 5,000 Unit/0.5 Ml Inj SUBCUT 5,000 unit Q12H LUDIVINA Administration Hydrochlorothiazide 25 mg 03/14/23 16:20 03/15/23 09:40 Hydrochlorothiazide 25 Mg Tablet PO 25 mg DAILY LUDIVINA Administration Lactated Ringer's 1,000 mls @ 1,000 mls/hr 03/12/23 16:38 03/12/23 19:03 Lactated Ringers 1000 Ml IV 03/12/23 17:37 Infused .Q1H ONE Infusion Lactated Ringer's 1,000 mls @ 1,000 mls/hr 03/12/23 19:44 03/12/23 20:52 Lactated Ringers 1000 Ml IV 03/12/23 20:43 Infused .Q1H ONE Infusion Vancomycin HCl 2,000 mg/ 520 mls @ 260 mls/hr 03/12/23 20:03 03/12/23 22:40 Sodium Chloride IVPB 03/12/23 20:04 Infused ONCE ONE Infusion Protocol Piperacillin Sod/Tazobactam 100 mls @ 200 mls/hr 03/12/23 20:03 03/12/23 20:52 Sod 3.375 gm/ Sodium Chloride IVPB 03/12/23 20:04 Infused ONCE ONE Infusion Lactated Ringer's 1,000 mls @ 1,700 mls/hr 03/12/23 20:23 03/12/23 21:58 Lactated Ringers 1000 Ml IV 03/12/23 20:58 Infused .Q36M ONE Infusion Sodium Chloride 250 mls @ 250 mls/hr 03/12/23 21:34 03/12/23 22:10 0.9 % Sodium Chloride 250 Ml IV 03/12/23 22:33 Infused .Q1H ONE Infusion Piperacillin Sod/Tazobactam 100 mls @ 200 mls/hr 03/13/23 02:00 03/15/23 20:20 Sod 3.375 gm/ Sodium Chloride IVPB Infused Q6H L[facility]INA Infusion Vancomycin HCl 1,750 mg/ 517.5 mls @ 258.75 mls/hr 03/13/23 08:00 03/15/23 20:19 Sodium Chloride IVPB 250 mls/hr Q12H LUDIVINA Administration Protocol Loperamide HCl 4 mg 03/15/23 09:44 03/15/23 10:00 Loperamide Hcl 2 Mg Capsule PO 03/15/23 09:45 4 mg ONCE ONE Administration Losartan Potassium 100 mg 03/14/23 16:20 03/15/23 09:40 Losartan Potassium 50 Mg Tablet PO 100 mg DAILY LUDIVINA Administration Ondansetron HCl 4 mg 03/12/23 16:57 03/12/23 17:06 Ondansetron 2 Mg/Ml Inj IVP 03/12/23 16:58 4 mg ONCE ONE Administration Tamsulosin HCl 0.4 mg 03/14/23 16:20 03/15/23 10:00 Tamsulosin Hcl 0.4 Mg Capsule PO 0.4 mg DAILY LUDIVINA Administration <Dennis Calderon MD - Last Filed: 03/14/23 16:23> Discontinued Medications Generic Name Dose Route Start Last Admin Trade Name Freq PRN Reason Stop Dose Admin Acetaminophen 650 mg 03/12/23 16:45 03/12/23 17:06 Acetaminophen 325 Mg Tablet PO 03/12/23 16:46 650 mg ONCE ONE Administration Acetaminophen 325 mg 03/12/23 18:18 03/12/23 18:19 Acetaminophen 325 Mg Tablet PO 03/12/23 18:19 325 mg ONCE ONE Administration Acetaminophen 650 mg 03/12/23 22:24 03/12/23 22:29 Acetaminophen 325 Mg Tablet PO 03/12/23 22:25 650 mg ONCE ONE Administration Acetaminophen 1,000 mg 03/13/23 02:30 03/15/23 20:20 Acetaminophen 500 Mg Tablet PO 1,000 mg Q6H LUDIVINA Administration Diltiazem HCl 240 mg 03/14/23 16:15 03/15/23 09:40 Diltiazem 240 Mg Cap (Cd) PO 240 mg DAILY LUDIVINA Administration Heparin Sodium (Porcine) 5,000 unit 03/14/23 16:20 03/15/23 16:20 Heparin 5,000 Unit/0.5 Ml Inj SUBCUT 5,000 unit Q12H LUDIVINA Administration Hydrochlorothiazide 25 mg 03/14/23 16:20 03/15/23 09:40 Hydrochlorothiazide 25 Mg Tablet PO 25 mg DAILY LUDIVINA Administration Lactated Ringer's 1,000 mls @ 1,000 mls/hr 03/12/23 16:38 03/12/23 19:03 Lactated Ringers 1000 Ml IV 03/12/23 17:37 Infused .Q1H ONE Infusion Lactated Ringer's 1,000 mls @ 1,000 mls/hr 03/12/23 19:44 03/12/23 20:52 Lactated Ringers 1000 Ml IV 03/12/23 20:43 Infused .Q1H ONE Infusion Vancomycin HCl 2,000 mg/ 520 mls @ 260 mls/hr 03/12/23 20:03 03/12/23 22:40 Sodium Chloride IVPB 03/12/23 20:04 Infused ONCE ONE Infusion Protocol Piperacillin Sod/Tazobactam 100 mls @ 200 mls/hr 03/12/23 20:03 03/12/23 20:52 Sod 3.375 gm/ Sodium Chloride IVPB 03/12/23 20:04 Infused ONCE ONE Infusion Lactated Ringer's 1,000 mls @ 1,700 mls/hr 03/12/23 20:23 03/12/23 21:58 Lactated Ringers 1000 Ml IV 03/12/23 20:58 Infused .Q36M ONE Infusion Sodium Chloride 250 mls @ 250 mls/hr 03/12/23 21:34 03/12/23 22:10 0.9 % Sodium Chloride 250 Ml IV 03/12/23 22:33 Infused .Q1H ONE Infusion Piperacillin Sod/Tazobactam 100 mls @ 200 mls/hr 03/13/23 02:00 03/15/23 20:20 Sod 3.375 gm/ Sodium Chloride IVPB Infused Q6H L[facility]INA Infusion Vancomycin HCl 1,750 mg/ 517.5 mls @ 258.75 mls/hr 03/13/23 08:00 03/15/23 20:19 Sodium Chloride IVPB 250 mls/hr Q12H LUDIVINA Administration Protocol Loperamide HCl 4 mg 03/15/23 09:44 03/15/23 10:00 Loperamide Hcl 2 Mg Capsule PO 03/15/23 09:45 4 mg ONCE ONE Administration Losartan Potassium 100 mg 03/14/23 16:20 03/15/23 09:40 Losartan Potassium 50 Mg Tablet PO 100 mg DAILY LUDIVINA Administration Ondansetron HCl 4 mg 03/12/23 16:57 03/12/23 17:06 Ondansetron 2 Mg/Ml Inj IVP 03/12/23 16:58 4 mg ONCE ONE Administration Tamsulosin HCl 0.4 mg 03/14/23 16:20 03/15/23 10:00 Tamsulosin Hcl 0.4 Mg Capsule PO 0.4 mg DAILY LUDIVINA Administration <Amadeo Richmond MD - Last Filed: 03/17/23 08:23> Discontinued Medications Generic Name Dose Route Start Last Admin Trade Name Freq PRN Reason Stop Dose Admin Acetaminophen 650 mg 03/12/23 16:45 03/12/23 17:06 Acetaminophen 325 Mg Tablet PO 03/12/23 16:46 650 mg ONCE ONE Administration Acetaminophen 325 mg 03/12/23 18:18 03/12/23 18:19 Acetaminophen 325 Mg Tablet PO 03/12/23 18:19 325 mg ONCE ONE Administration Acetaminophen 650 mg 03/12/23 22:24 03/12/23 22:29 Acetaminophen 325 Mg Tablet PO 03/12/23 22:25 650 mg ONCE ONE Administration Acetaminophen 1,000 mg 03/13/23 02:30 03/15/23 20:20 Acetaminophen 500 Mg Tablet PO 1,000 mg Q6H LUDIVINA Administration Diltiazem HCl 240 mg 03/14/23 16:15 03/15/23 09:40 Diltiazem 240 Mg Cap (Cd) PO 240 mg DAILY LUDIVINA Administration Heparin Sodium (Porcine) 5,000 unit 03/14/23 16:20 03/15/23 16:20 Heparin 5,000 Unit/0.5 Ml Inj SUBCUT 5,000 unit Q12H LUDIVINA Administration Hydrochlorothiazide 25 mg 03/14/23 16:20 03/15/23 09:40 Hydrochlorothiazide 25 Mg Tablet PO 25 mg DAILY LUDIVINA Administration Lactated Ringer's 1,000 mls @ 1,000 mls/hr 03/12/23 16:38 03/12/23 19:03 Lactated Ringers 1000 Ml IV 03/12/23 17:37 Infused .Q1H ONE Infusion Lactated Ringer's 1,000 mls @ 1,000 mls/hr 03/12/23 19:44 03/12/23 20:52 Lactated Ringers 1000 Ml IV 03/12/23 20:43 Infused .Q1H ONE Infusion Vancomycin HCl 2,000 mg/ 520 mls @ 260 mls/hr 03/12/23 20:03 03/12/23 22:40 Sodium Chloride IVPB 03/12/23 20:04 Infused ONCE ONE Infusion Protocol Piperacillin Sod/Tazobactam 100 mls @ 200 mls/hr 03/12/23 20:03 03/12/23 20:52 Sod 3.375 gm/ Sodium Chloride IVPB 03/12/23 20:04 Infused ONCE ONE Infusion Lactated Ringer's 1,000 mls @ 1,700 mls/hr 03/12/23 20:23 03/12/23 21:58 Lactated Ringers 1000 Ml IV 03/12/23 20:58 Infused .Q36M ONE Infusion Sodium Chloride 250 mls @ 250 mls/hr 03/12/23 21:34 03/12/23 22:10 0.9 % Sodium Chloride 250 Ml IV 03/12/23 22:33 Infused .Q1H ONE Infusion Piperacillin Sod/Tazobactam 100 mls @ 200 mls/hr 03/13/23 02:00 03/15/23 20:20 Sod 3.375 gm/ Sodium Chloride IVPB Infused Q6H LUDIVINA Infusion Vancomycin HCl 1,750 mg/ 517.5 mls @ 258.75 mls/hr 03/13/23 08:00 03/15/23 20:19 Sodium Chloride IVPB 250 mls/hr Q12H LUDIVINA Administration Protocol Loperamide HCl 4 mg 03/15/23 09:44 03/15/23 10:00 Loperamide Hcl 2 Mg Capsule PO 03/15/23 09:45 4 mg ONCE ONE Administration Losartan Potassium 100 mg 03/14/23 16:20 03/15/23 09:40 Losartan Potassium 50 Mg Tablet PO 100 mg DAILY LUDIVINA Administration Ondansetron HCl 4 mg 03/12/23 16:57 03/12/23 17:06 Ondansetron 2 Mg/Ml Inj IVP 03/12/23 16:58 4 mg ONCE ONE Administration Tamsulosin HCl 0.4 mg 03/14/23 16:20 03/15/23 10:00 Tamsulosin Hcl 0.4 Mg Capsule PO 0.4 mg DAILY LUDIVINA Administration <Tomás Atwood MD - Last Filed: 04/11/23 08:03> Medical Decision Making [facility] Narrative Medical decision making narrative: Patient is a 72-year-old male presenting to the emergency department for fever and chills. Initially on exam he was shivering quite a bit and looked ill but blood pressure was stable. Initially tachycardic with a fever. Did meet SIRS criteria the septic workup was ordered. He was given Tylenol. Also chest x-ray to look for signs of pneumonia. He denies feeling short of breath any has been moving around relatively actively and a PE seems less likely at this time. No history of blood clots and no leg swelling. There is concerned he could have an infection of surgical site. The family says there is more erythema around it looks relatively mild and the site looks to be healing well. There was drainage from it that started a week ago that they describe as serosanguineous. We will do CT scans with IV contrast of his thoracic and lumbar spine at this time. Were unable to do an MRI at this time of night. Will also order CBC, CMP, lactate, blood cultures, COVID/flu/RSV, CRP, ESR. Initial chest x-ray showed no concerning abnormalities. Initial EKG also showed no concerning abnormalities. CBC returned with a white count of 14. He did have the surgery to have decreased going with expected the white blood cell count to come down better than but we cannot say definitively it is not related to the surgery. Initial lactate was only 1.8 Rest of CBC and CMP showed no concerning abnormalities. Urinalysis shows no signs of UTI COVID/flu/RSV tests are negative. After the Tylenol his fever still elevated but he. She ever needs states he was feeling better. He did stand up later on go the bathroom and nursing staff noted that he became more tachycardic and blood pressures went from the 170 systolic down to 114 systolic. We continued to monitor him and his heart rate while sitting up is in the 110s. I am concerned he could be septic so I did order repeat lactate and it returned at 2.3 despite or any getting 1 L of fluids. More fluids were ordered. They were given per sepsis protocol. CT scans returned after a delay showing a fluid collection in the posterior subcutaneous soft tissue at the operation level. It is nonspecific. States that could be seroma or superimposed infection. I did page out to spine surgery at [facility] for he has procedure done. While I am waiting for response I will start treating him as if he has infection give vancomycin and Zosyn. Of note he is an allergy to cefdinir but he states he believes the symptom was just a local rash and thus I feel comfortable giving him Zosyn. I spoke to Dr. Guillaume and explained the situation. Since there is no other clear source of infection at this time he states be after his soon the infection is at the surgical site. He says about week 2-3 is when they will start seen the surgical site infections like this. He does recommend transfer to their hospital. Patient is currently 1. Await this for transfer. He is stable at this time <Christopher Arrington, - Last Filed: 03/13/23 00:53> Patient is a 72-year-old male presenting to the emergency department for fever and chills. Initially on exam he was shivering quite a bit and looked ill but blood pressure was stable. Initially tachycardic with a fever. Did meet SIRS criteria the septic workup was ordered. He was given Tylenol. Also chest x-ray to look for signs of pneumonia. He denies feeling short of breath any has been moving around relatively actively and a PE seems less likely at this time. No history of blood clots and no leg swelling. There is concerned he could have an infection of surgical site. The family says there is more erythema around it looks relatively mild and the site looks to be healing well. There was drainage from it that started a week ago that they describe as serosanguineous. We will do CT scans with IV contrast of his thoracic and lumbar spine at this time. Were unable to do an MRI at this time of night. Will also order CBC, CMP, lactate, blood cultures, COVID/flu/RSV, CRP, ESR. Initial chest x-ray showed no concerning abnormalities. Initial EKG also showed no concerning abnormalities. CBC returned with a white count of 14. He did have the surgery to have decreased going with expected the white blood cell count to come down better than but we cannot say definitively it is not related to the surgery. Initial lactate was only 1.8 Rest of CBC and CMP showed no concerning abnormalities. Urinalysis shows no signs of UTI COVID/flu/RSV tests are negative. After the Tylenol his fever still elevated but he. She ever needs states he was feeling better. He did stand up later on go the bathroom and nursing staff noted that he became more tachycardic and blood pressures went from the 170 systolic down to 114 systolic. We continued to monitor him and his heart rate while sitting up is in the 110s. I am concerned he could be septic so I did order repeat lactate and it returned at 2.3 despite or any getting 1 L of fluids. More fluids were ordered. They were given per sepsis protocol. CT scans returned after a delay showing a fluid collection in the posterior subcutaneous soft tissue at the operation level. It is nonspecific. States that could be seroma or superimposed infection. I did page out to spine surgery at [facility] for he has procedure done. While I am waiting for response I will start treating him as if he has infection give vancomycin and Zosyn. Of note he is an allergy to cefdinir but he states he believes the symptom was just a local rash and thus I feel comfortable giving him Zosyn. I spoke to Dr. Guillaume and explained the situation. Since there is no other clear source of infection at this time he states be after his soon the infection is at the surgical site. He says about week 2-3 is when they will start seen the surgical site infections like this. He does recommend transfer to their hospital. Patient is currently 1. Await this for transfer. He is stable at this time Addendum 11:31 a.m. 03/15/2023: The patient continues to have hemodynamic stability, he is on Zosyn and vancomycin on a regular basis. However he does have positive blood cultures, an abscess around his surgical site and around his hardware. He is still on a wait list for [facility]. I have contacted the transfer department and I have asked to speak to a surgeon or the PA regarding the patient's care. I really feel at this point this patient needs to be transferred and likely needs operative intervention for I and D of his infection around his spinal fusion. I am worried that if we continue to observe he may have recurrent sepsis he may have bigger abscess formation or could impair the healing of his operative status. Patient has actually been very tolerant and cooperative and but is getting distress at this point that there has been no transfer an almost 3 days. I again stated to the transfer people I wanted this talk to the surgeon and that we needed urgent transfer for spine surgical assessment. Addendum 12:[address] Vigil the case he is aware of the patient, the patient will need a I and D and washout of his wound and surgical site. [facility] is in the process of getting bed placement and later this afternoon they helped to transfer him. He feels that he is in good condition given his hemodynamics are stable and he is on IV antibiotics. But will need a surgical intervention. We will transfer as soon as they accept and as soon as possible. <Tomás Atwood MD - Last Filed: 04/11/23 08:03> Lab Data Labs: Lab Results 03/12/23 03/12/23 03/12/23 Range/Units 16:30 16:43 16:45 WBC 14.34 H (4.50-11.00) K/uL RBC 4.95 (4.30-5.90) m/uL Hgb 15.0 (13.5-17.5) gm/dL Hct 43.9 (37.0-53.0) % MCV 89 (80-100) fL MCH 30 (26-34) pg MCHC 34 (32-36) gm/dL RDW Coeff of Carlos 11.8 (11.5-15.5) % Plt Count 267 (140-440) K/uL Neut % (Auto) 85.7 H (42.0-72.0) % Lymph % (Auto) 5.9 L (20-44) % [place] % (Auto) 5.0 (0.0-11.0) % Eos % (Auto) 2.2 (0.0-7.0) % Baso % (Auto) 0.3 (0.0-3.0) % Neut # (Auto) 12.30 H (1.7-7.0) K/uL Lymph # (Auto) 0.80 L (0.90-2.90) K/uL [place] # (Auto) 0.70 (0.00-0.90) K/UL Eos # (Auto) 0.30 (0.00-0.50) K/uL Baso # (Auto) 0.00 (0.00-0.30) K/uL Abs Immat Gran (auto) 0.10 (0.00-0.30) K/uL Imm/Tot Granulo (auto) 0.9 % ESR 12 (2-15) mm/hr Sodium 136 (135-149) mmol/L Potassium 3.6 (3.6-5.1) mmol/L Chloride 100 (96-114) mmol/L Carbon Dioxide 27 (20-32) mmol/L Anion Gap 9 (7-15) mEq/L BUN 24 (7-30) mg/dL Creatinine 1.0 (0.5-1.5) mg/dL Estimated Creat Clear 71.12 Estimated GFR 80 ml/min Glucose 103 (60-115) mg/dL Lactate 1.8 (0.5-1.9) mmol/L Calcium 9.3 (8.4-10.6) mg/dL Total Bilirubin 0.6 (0.1-1.5) mg/dL AST 25 (12-35) U/L ALT 30 (4-50) U/L Alkaline Phosphatase 61 (40-150) U/L Troponin I < 0.01 L (0.01-0.04) ng/mL C-Reactive Protein 0.8 (0.5-1.0) mg/dL Total Protein 8.0 (6.0-8.3) g/dL Albumin 4.6 (3.3-5.0) g/dL Urine Color (Yellow) Urine Appearance (Clear) Urine pH (5.0-8.5) Ur Specific [place] (1.000-1.030) Urine Protein (Negative) Urine Glucose (UA) (Negative) Urine Ketones (Negative) Urine Blood (Negative) Urine Nitrite (Negative) Urine Bilirubin (Negative) Urine Urobilinogen (0.2-1.0) Ur Leukocyte Esterase (Negative) Urine RBC (0-2) Urine WBC (0-5) Urine WBC Clumps (None) Ur Squamous Epith Cells (None-Few) Urine Bacteria (None) SARS-CoV-2 (PCR) Negative SARS-CoV-2 (Negative) Influenza Type A (PCR) Negative PCR FLU A (Negative) Influenza Type B (PCR) Negative PCR FLU B (Negative) RSV (PCR) Negative PCR RSV (Negative) Lab Acknowledgement POC Creatinine 1.1 (0.6-1.3) mg/dl 03/12/23 03/12/23 03/12/23 Range/Units 17:50 18:05 19:50 WBC (4.50-11.00) K/uL RBC (4.30-5.90) m/uL Hgb (13.5-17.5) gm/dL Hct (37.0-53.0) % MCV (80-100) fL MCH (26-34) pg MCHC (32-36) gm/dL RDW Coeff of Carlos (11.5-15.5) % Plt Count (140-440) K/uL Neut % (Auto) (42.0-72.0) % Lymph % (Auto) (20-44) % [place] % (Auto) (0.0-11.0) % Eos % (Auto) (0.0-7.0) % Baso % (Auto) (0.0-3.0) % Neut # (Auto) (1.7-7.0) K/uL Lymph # (Auto) (0.90-2.90) K/uL [place] # (Auto) (0.00-0.90) K/UL Eos # (Auto) (0.00-0.50) K/uL Baso # (Auto) (0.00-0.30) K/uL Abs Immat Gran (auto) (0.00-0.30) K/uL Imm/Tot Granulo (auto) % ESR (2-15) mm/hr Sodium (135-149) mmol/L Potassium (3.6-5.1) mmol/L Chloride (96-114) mmol/L Carbon Dioxide (20-32) mmol/L Anion Gap (7-15) mEq/L BUN (7-30) mg/dL Creatinine (0.5-1.5) mg/dL Estimated Creat Clear Estimated GFR ml/min Glucose (60-115) mg/dL Lactate 2.3 H (0.5-1.9) mmol/L Calcium (8.4-10.6) mg/dL Total Bilirubin (0.1-1.5) mg/dL AST (12-35) U/L ALT (4-50) U/L Alkaline Phosphatase (40-150) U/L Troponin I (0.01-0.04) ng/mL C-Reactive Protein (0.5-1.0) mg/dL Total Protein (6.0-8.3) g/dL Albumin (3.3-5.0) g/dL Urine Color Yellow (Yellow) Urine Appearance Clear (Clear) Urine pH 7.0 (5.0-8.5) Ur Specific [place] 1.015 (1.000-1.030) Urine Protein Negative (Negative) Urine Glucose (UA) Negative (Negative) Urine Ketones Negative (Negative) Urine Blood Negative (Negative) Urine Nitrite Negative (Negative) Urine Bilirubin Negative (Negative) Urine Urobilinogen 0.2 (0.2-1.0) Ur Leukocyte Esterase Negative (Negative) Urine RBC 0-2 (0-2) Urine WBC 0-2 (0-5) Urine WBC Clumps None (None) Ur Squamous Epith Cells None (None-Few) Urine Bacteria None (None) SARS-CoV-2 (PCR) (Negative) Influenza Type A (PCR) (Negative) Influenza Type B (PCR) (Negative) RSV (PCR) (Negative) Lab Acknowledgement Test Added POC Creatinine (0.6-1.3) mg/dl 03/13/23 03/13/23 03/14/23 Range/Units 00:05 17:10 07:45 WBC 17.03 H 12.95 H (4.50-11.00) K/uL RBC 3.92 L 3.86 L (4.30-5.90) m/uL Hgb 11.9 L 11.8 L (13.5-17.5) gm/dL Hct 35.0 L 34.7 L (37.0-53.0) % MCV 89 90 (80-100) fL MCH 30 31 (26-34) pg MCHC 34 34 (32-36) gm/dL RDW Coeff of Carlos 12.1 12.5 (11.5-15.5) % Plt Count 181 179 (140-440) K/uL Neut % (Auto) 84.7 H 82.0 H (42.0-72.0) % Lymph % (Auto) 6.7 L 7.5 L (20-44) % [place] % (Auto) 7.6 7.7 (0.0-11.0) % Eos % (Auto) 0.4 2.2 (0.0-7.0) % Baso % (Auto) 0.4 0.4 (0.0-3.0) % Neut # (Auto) 14.40 H 10.60 H (1.7-7.0) K/uL Lymph # (Auto) 1.10 1.00 (0.90-2.90) K/uL [place] # (Auto) 1.30 H 1.00 H (0.00-0.90) K/UL Eos # (Auto) 0.10 0.30 (0.00-0.50) K/uL Baso # (Auto) 0.10 0.10 (0.00-0.30) K/uL Abs Immat Gran (auto) 0.00 0.00 (0.00-0.30) K/uL Imm/Tot Granulo (auto) 0.2 0.2 % ESR (2-15) mm/hr Sodium 133 L (135-149) mmol/L Potassium 3.7 (3.6-5.1) mmol/L Chloride 102 (96-114) mmol/L Carbon Dioxide 26 (20-32) mmol/L Anion Gap 5 L (7-15) mEq/L BUN 18 (7-30) mg/dL Creatinine 0.9 (0.5-1.5) mg/dL Estimated Creat Clear 71.12 Estimated GFR 91 ml/min Glucose 109 (60-115) mg/dL Lactate 1.8 0.9 0.7 (0.5-1.9) mmol/L Calcium 8.5 (8.4-10.6) mg/dL Total Bilirubin (0.1-1.5) mg/dL AST (12-35) U/L ALT (4-50) U/L Alkaline Phosphatase (40-150) U/L Troponin I (0.01-0.04) ng/mL C-Reactive Protein 19.0 H 20.8 H (0.5-1.0) mg/dL Total Protein (6.0-8.3) g/dL Albumin (3.3-5.0) g/dL Urine Color (Yellow) Urine Appearance (Clear) Urine pH (5.0-8.5) Ur Specific [place] (1.000-1.030) Urine Protein (Negative) Urine Glucose (UA) (Negative) Urine Ketones (Negative) Urine Blood (Negative) Urine Nitrite (Negative) Urine Bilirubin (Negative) Urine Urobilinogen (0.2-1.0) Ur Leukocyte Esterase (Negative) Urine RBC (0-2) Urine WBC (0-5) Urine WBC Clumps (None) Ur Squamous Epith Cells (None-Few) Urine Bacteria (None) SARS-CoV-2 (PCR) (Negative) Influenza Type A (PCR) (Negative) Influenza Type B (PCR) (Negative) RSV (PCR) (Negative) Lab Acknowledgement POC Creatinine (0.6-1.3) mg/dl <Christopher Arrington, DO - Last Filed: 03/13/23 00:53> Lab Results 03/12/23 03/12/23 03/12/23 Range/Units 16:30 16:43 16:45 WBC 14.34 H (4.50-11.00) K/uL RBC 4.95 (4.30-5.90) m/uL Hgb 15.0 (13.5-17.5) gm/dL Hct 43.9 (37.0-53.0) % MCV 89 (80-100) fL MCH 30 (26-34) pg MCHC 34 (32-36) gm/dL RDW Coeff of Carlos 11.8 (11.5-15.5) % Plt Count 267 (140-440) K/uL Neut % (Auto) 85.7 H (42.0-72.0) % Lymph % (Auto) 5.9 L (20-44) % [place] % (Auto) 5.0 (0.0-11.0) % Eos % (Auto) 2.2 (0.0-7.0) % Baso % (Auto) 0.3 (0.0-3.0) % Neut # (Auto) 12.30 H (1.7-7.0) K/uL Lymph # (Auto) 0.80 L (0.90-2.90) K/uL [place] # (Auto) 0.70 (0.00-0.90) K/UL Eos # (Auto) 0.30 (0.00-0.50) K/uL Baso # (Auto) 0.00 (0.00-0.30) K/uL Abs Immat Gran (auto) 0.10 (0.00-0.30) K/uL Imm/Tot Granulo (auto) 0.9 % ESR 12 (2-15) mm/hr Sodium 136 (135-149) mmol/L Potassium 3.6 (3.6-5.1) mmol/L Chloride 100 (96-114) mmol/L Carbon Dioxide 27 (20-32) mmol/L Anion Gap 9 (7-15) mEq/L BUN 24 (7-30) mg/dL Creatinine 1.0 (0.5-1.5) mg/dL Estimated Creat Clear 71.12 Estimated GFR 80 ml/min Glucose 103 (60-115) mg/dL Lactate 1.8 (0.5-1.9) mmol/L Calcium 9.3 (8.4-10.6) mg/dL Total Bilirubin 0.6 (0.1-1.5) mg/dL AST 25 (12-35) U/L ALT 30 (4-50) U/L Alkaline Phosphatase 61 (40-150) U/L Troponin I < 0.01 L (0.01-0.04) ng/mL C-Reactive Protein 0.8 (0.5-1.0) mg/dL Total Protein 8.0 (6.0-8.3) g/dL Albumin 4.6 (3.3-5.0) g/dL Urine Color (Yellow) Urine Appearance (Clear) Urine pH (5.0-8.5) Ur Specific [place] (1.000-1.030) Urine Protein (Negative) Urine Glucose (UA) (Negative) Urine Ketones (Negative) Urine Blood (Negative) Urine Nitrite (Negative) Urine Bilirubin (Negative) Urine Urobilinogen (0.2-1.0) Ur Leukocyte Esterase (Negative) Urine RBC (0-2) Urine WBC (0-5) Urine WBC Clumps (None) Ur Squamous Epith Cells (None-Few) Urine Bacteria (None) SARS-CoV-2 (PCR) Negative SARS-CoV-2 (Negative) Influenza Type A (PCR) Negative PCR FLU A (Negative) Influenza Type B (PCR) Negative PCR FLU B (Negative) RSV (PCR) Negative PCR RSV (Negative) Lab Acknowledgement POC Creatinine 1.1 (0.6-1.3) mg/dl 03/12/23 03/12/23 03/12/23 Range/Units 17:50 18:05 19:50 WBC (4.50-11.00) K/uL RBC (4.30-5.90) m/uL Hgb (13.5-17.5) gm/dL Hct (37.0-53.0) % MCV (80-100) fL MCH (26-34) pg MCHC (32-36) gm/dL RDW Coeff of Carlos (11.5-15.5) % Plt Count (140-440) K/uL Neut % (Auto) (42.0-72.0) % Lymph % (Auto) (20-44) % [place] % (Auto) (0.0-11.0) % Eos % (Auto) (0.0-7.0) % Baso % (Auto) (0.0-3.0) % Neut # (Auto) (1.7-7.0) K/uL Lymph # (Auto) (0.90-2.90) K/uL [place] # (Auto) (0.00-0.90) K/UL Eos # (Auto) (0.00-0.50) K/uL Baso # (Auto) (0.00-0.30) K/uL Abs Immat Gran (auto) (0.00-0.30) K/uL Imm/Tot Granulo (auto) % ESR (2-15) mm/hr Sodium (135-149) mmol/L Potassium (3.6-5.1) mmol/L Chloride (96-114) mmol/L Carbon Dioxide (20-32) mmol/L Anion Gap (7-15) mEq/L BUN (7-30) mg/dL Creatinine (0.5-1.5) mg/dL Estimated Creat Clear Estimated GFR ml/min Glucose (60-115) mg/dL Lactate 2.3 H (0.5-1.9) mmol/L Calcium (8.4-10.6) mg/dL Total Bilirubin (0.1-1.5) mg/dL AST (12-35) U/L ALT (4-50) U/L Alkaline Phosphatase (40-150) U/L Troponin I (0.01-0.04) ng/mL C-Reactive Protein (0.5-1.0) mg/dL Total Protein (6.0-8.3) g/dL Albumin (3.3-5.0) g/dL Urine Color Yellow (Yellow) Urine Appearance Clear (Clear) Urine pH 7.0 (5.0-8.5) Ur Specific [place] 1.015 (1.000-1.030) Urine Protein Negative (Negative) Urine Glucose (UA) Negative (Negative) Urine Ketones Negative (Negative) Urine Blood Negative (Negative) Urine Nitrite Negative (Negative) Urine Bilirubin Negative (Negative) Urine Urobilinogen 0.2 (0.2-1.0) Ur Leukocyte Esterase Negative (Negative) Urine RBC 0-2 (0-2) Urine WBC 0-2 (0-5) Urine WBC Clumps None (None) Ur Squamous Epith Cells None (None-Few) Urine Bacteria None (None) SARS-CoV-2 (PCR) (Negative) Influenza Type A (PCR) (Negative) Influenza Type B (PCR) (Negative) RSV (PCR) (Negative) Lab Acknowledgement Test Added POC Creatinine (0.6-1.3) mg/dl 03/13/23 03/13/23 03/14/23 Range/Units 00:05 17:10 07:45 WBC 17.03 H 12.95 H (4.50-11.00) K/uL RBC 3.92 L 3.86 L (4.30-5.90) m/uL Hgb 11.9 L 11.8 L (13.5-17.5) gm/dL Hct 35.0 L 34.7 L (37.0-53.0) % MCV 89 90 (80-100) fL MCH 30 31 (26-34) pg MCHC 34 34 (32-36) gm/dL RDW Coeff of [place] 12.1 12.5 (11.5-15.5) % Plt Count 181 179 (140-440) K/uL Neut % (Auto) 84.7 H 82.0 H (42.0-72.0) % Lymph % (Auto) 6.7 L 7.5 L (20-44) % [place] % (Auto) 7.6 7.7 (0.0-11.0) % Eos % (Auto) 0.4 2.2 (0.0-7.0) % Baso % (Auto) 0.4 0.4 (0.0-3.0) % Neut # (Auto) 14.40 H 10.60 H (1.7-7.0) K/uL Lymph # (Auto) 1.10 1.00 (0.90-2.90) K/uL [place] # (Auto) 1.30 H 1.00 H (0.00-0.90) K/UL Eos # (Auto) 0.10 0.30 (0.00-0.50) K/uL Baso # (Auto) 0.10 0.10 (0.00-0.30) K/uL Abs Immat Gran (auto) 0.00 0.00 (0.00-0.30) K/uL Imm/Tot Granulo (auto) 0.2 0.2 % ESR (2-15) mm/hr Sodium 133 L (135-149) mmol/L Potassium 3.7 (3.6-5.1) mmol/L Chloride 102 (96-114) mmol/L Carbon Dioxide 26 (20-32) mmol/L Anion Gap 5 L (7-15) mEq/L BUN 18 (7-30) mg/dL Creatinine 0.9 (0.5-1.5) mg/dL Estimated Creat Clear 71.12 Estimated GFR 91 ml/min Glucose 109 (60-115) mg/dL Lactate 1.8 0.9 0.7 (0.5-1.9) mmol/L Calcium 8.5 (8.4-10.6) mg/dL Total Bilirubin (0.1-1.5) mg/dL AST (12-35) U/L ALT (4-50) U/L Alkaline Phosphatase (40-150) U/L Troponin I (0.01-0.04) ng/mL C-Reactive Protein 19.0 H 20.8 H (0.5-1.0) mg/dL Total Protein (6.0-8.3) g/dL Albumin (3.3-5.0) g/dL Urine Color (Yellow) Urine Appearance (Clear) Urine pH (5.0-8.5) Ur Specific [place] (1.000-1.030) Urine Protein (Negative) Urine Glucose (UA) (Negative) Urine Ketones (Negative) Urine Blood (Negative) Urine Nitrite (Negative) Urine Bilirubin (Negative) Urine Urobilinogen (0.2-1.0) Ur Leukocyte Esterase (Negative) Urine RBC (0-2) Urine WBC (0-5) Urine WBC Clumps (None) Ur Squamous Epith Cells (None-Few) Urine Bacteria (None) SARS-CoV-2 (PCR) (Negative) Influenza Type A (PCR) (Negative) Influenza Type B (PCR) (Negative) RSV (PCR) (Negative) Lab Acknowledgement POC Creatinine (0.6-1.3) mg/dl <Nhi Avalos MD - Last Filed: 03/13/23 18:55> Lab Results 03/12/23 03/12/23 03/12/23 Range/Units 16:30 16:43 16:45 WBC 14.34 H (4.50-11.00) K/uL RBC 4.95 (4.30-5.90) m/uL Hgb 15.0 (13.5-17.5) gm/dL Hct 43.9 (37.0-53.0) % MCV 89 (80-100) fL MCH 30 (26-34) pg MCHC 34 (32-36) gm/dL RDW Coeff of [place] 11.8 (11.5-15.5) % Plt Count 267 (140-440) K/uL Neut % (Auto) 85.7 H (42.0-72.0) % Lymph % (Auto) 5.9 L (20-44) % [place] % (Auto) 5.0 (0.0-11.0) % Eos % (Auto) 2.2 (0.0-7.0) % Baso % (Auto) 0.3 (0.0-3.0) % Neut # (Auto) 12.30 H (1.7-7.0) K/uL Lymph # (Auto) 0.80 L (0.90-2.90) K/uL [place] # (Auto) 0.70 (0.00-0.90) K/UL Eos # (Auto) 0.30 (0.00-0.50) K/uL Baso # (Auto) 0.00 (0.00-0.30) K/uL Abs Immat Gran (auto) 0.10 (0.00-0.30) K/uL Imm/Tot Granulo (auto) 0.9 % ESR 12 (2-15) mm/hr Sodium 136 (135-149) mmol/L Potassium 3.6 (3.6-5.1) mmol/L Chloride 100 (96-114) mmol/L Carbon Dioxide 27 (20-32) mmol/L Anion Gap 9 (7-15) mEq/L BUN 24 (7-30) mg/dL Creatinine 1.0 (0.5-1.5) mg/dL Estimated Creat Clear 71.12 Estimated GFR 80 ml/min Glucose 103 (60-115) mg/dL Lactate 1.8 (0.5-1.9) mmol/L Calcium 9.3 (8.4-10.6) mg/dL Total Bilirubin 0.6 (0.1-1.5) mg/dL AST 25 (12-35) U/L ALT 30 (4-50) U/L Alkaline Phosphatase 61 (40-150) U/L Troponin I < 0.01 L (0.01-0.04) ng/mL C-Reactive Protein 0.8 (0.5-1.0) mg/dL Total Protein 8.0 (6.0-8.3) g/dL Albumin 4.6 (3.3-5.0) g/dL Urine Color (Yellow) Urine Appearance (Clear) Urine pH (5.0-8.5) Ur Specific [place] (1.000-1.030) Urine Protein (Negative) Urine Glucose (UA) (Negative) Urine Ketones (Negative) Urine Blood (Negative) Urine Nitrite (Negative) Urine Bilirubin (Negative) Urine Urobilinogen (0.2-1.0) Ur Leukocyte Esterase (Negative) Urine RBC (0-2) Urine WBC (0-5) Urine WBC Clumps (None) Ur Squamous Epith Cells (None-Few) Urine Bacteria (None) SARS-CoV-2 (PCR) Negative SARS-CoV-2 (Negative) Influenza Type A (PCR) Negative PCR FLU A (Negative) Influenza Type B (PCR) Negative PCR FLU B (Negative) RSV (PCR) Negative PCR RSV (Negative) Lab Acknowledgement POC Creatinine 1.1 (0.6-1.3) mg/dl 03/12/23 03/12/23 03/12/23 Range/Units 17:50 18:05 19:50 WBC (4.50-11.00) K/uL RBC (4.30-5.90) m/uL Hgb (13.5-17.5) gm/dL Hct (37.0-53.0) % MCV (80-100) fL MCH (26-34) pg MCHC (32-36) gm/dL RDW Coeff of Carlos (11.5-15.5) % Plt Count (140-440) K/uL Neut % (Auto) (42.0-72.0) % Lymph % (Auto) (20-44) % [place] % (Auto) (0.0-11.0) % Eos % (Auto) (0.0-7.0) % Baso % (Auto) (0.0-3.0) % Neut # (Auto) (1.7-7.0) K/uL Lymph # (Auto) (0.90-2.90) K/uL [place] # (Auto) (0.00-0.90) K/UL Eos # (Auto) (0.00-0.50) K/uL Baso # (Auto) (0.00-0.30) K/uL Abs Immat Gran (auto) (0.00-0.30) K/uL Imm/Tot Granulo (auto) % ESR (2-15) mm/hr Sodium (135-149) mmol/L Potassium (3.6-5.1) mmol/L Chloride (96-114) mmol/L Carbon Dioxide (20-32) mmol/L Anion Gap (7-15) mEq/L BUN (7-30) mg/dL Creatinine (0.5-1.5) mg/dL Estimated Creat Clear Estimated GFR ml/min Glucose (60-115) mg/dL Lactate 2.3 H (0.5-1.9) mmol/L Calcium (8.4-10.6) mg/dL Total Bilirubin (0.1-1.5) mg/dL AST (12-35) U/L ALT (4-50) U/L Alkaline Phosphatase (40-150) U/L Troponin I (0.01-0.04) ng/mL C-Reactive Protein (0.5-1.0) mg/dL Total Protein (6.0-8.3) g/dL Albumin (3.3-5.0) g/dL Urine Color Yellow (Yellow) Urine Appearance Clear (Clear) Urine pH 7.0 (5.0-8.5) Ur Specific [place] 1.015 (1.000-1.030) Urine Protein Negative (Negative) Urine Glucose (UA) Negative (Negative) Urine Ketones Negative (Negative) Urine Blood Negative (Negative) Urine Nitrite Negative (Negative) Urine Bilirubin Negative (Negative) Urine Urobilinogen 0.2 (0.2-1.0) Ur Leukocyte Esterase Negative (Negative) Urine RBC 0-2 (0-2) Urine WBC 0-2 (0-5) Urine WBC Clumps None (None) Ur Squamous Epith Cells None (None-Few) Urine Bacteria None (None) SARS-CoV-2 (PCR) (Negative) Influenza Type A (PCR) (Negative) Influenza Type B (PCR) (Negative) RSV (PCR) (Negative) Lab Acknowledgement Test Added POC Creatinine (0.6-1.3) mg/dl 03/13/23 03/13/23 03/14/23 Range/Units 00:05 17:10 07:45 WBC 17.03 H 12.95 H (4.50-11.00) K/uL RBC 3.92 L 3.86 L (4.30-5.90) m/uL Hgb 11.9 L 11.8 L (13.5-17.5) gm/dL Hct 35.0 L 34.7 L (37.0-53.0) % MCV 89 90 (80-100) fL MCH 30 31 (26-34) pg MCHC 34 34 (32-36) gm/dL RDW Coeff of [place] 12.1 12.5 (11.5-15.5) % Plt Count 181 179 (140-440) K/uL Neut % (Auto) 84.7 H 82.0 H (42.0-72.0) % Lymph % (Auto) 6.7 L 7.5 L (20-44) % [place] % (Auto) 7.6 7.7 (0.0-11.0) % Eos % (Auto) 0.4 2.2 (0.0-7.0) % Baso % (Auto) 0.4 0.4 (0.0-3.0) % Neut # (Auto) 14.40 H 10.60 H (1.7-7.0) K/uL Lymph # (Auto) 1.10 1.00 (0.90-2.90) K/uL [place] # (Auto) 1.30 H 1.00 H (0.00-0.90) K/UL Eos # (Auto) 0.10 0.30 (0.00-0.50) K/uL Baso # (Auto) 0.10 0.10 (0.00-0.30) K/uL Abs Immat Gran (auto) 0.00 0.00 (0.00-0.30) K/uL Imm/Tot Granulo (auto) 0.2 0.2 % ESR (2-15) mm/hr Sodium 133 L (135-149) mmol/L Potassium 3.7 (3.6-5.1) mmol/L Chloride 102 (96-114) mmol/L Carbon Dioxide 26 (20-32) mmol/L Anion Gap 5 L (7-15) mEq/L BUN 18 (7-30) mg/dL Creatinine 0.9 (0.5-1.5) mg/dL Estimated Creat Clear 71.12 Estimated GFR 91 ml/min Glucose 109 (60-115) mg/dL Lactate 1.8 0.9 0.7 (0.5-1.9) mmol/L Calcium 8.5 (8.4-10.6) mg/dL Total Bilirubin (0.1-1.5) mg/dL AST (12-35) U/L ALT (4-50) U/L Alkaline Phosphatase (40-150) U/L Troponin I (0.01-0.04) ng/mL C-Reactive Protein 19.0 H 20.8 H (0.5-1.0) mg/dL Total Protein (6.0-8.3) g/dL Albumin (3.3-5.0) g/dL Urine Color (Yellow) Urine Appearance (Clear) Urine pH (5.0-8.5) Ur Specific [place] (1.000-1.030) Urine Protein (Negative) Urine Glucose (UA) (Negative) Urine Ketones (Negative) Urine Blood (Negative) Urine Nitrite (Negative) Urine Bilirubin (Negative) Urine Urobilinogen (0.2-1.0) Ur Leukocyte Esterase (Negative) Urine RBC (0-2) Urine WBC (0-5) Urine WBC Clumps (None) Ur Squamous Epith Cells (None-Few) Urine Bacteria (None) SARS-CoV-2 (PCR) (Negative) Influenza Type A (PCR) (Negative) Influenza Type B (PCR) (Negative) RSV (PCR) (Negative) Lab Acknowledgement POC Creatinine (0.6-1.3) mg/dl <Aden Corona MD - Last Filed: 03/15/23 11:42> Lab Results 03/12/23 03/12/23 03/12/23 Range/Units 16:30 16:43 16:45 WBC 14.34 H (4.50-11.00) K/uL RBC 4.95 (4.30-5.90) m/uL Hgb 15.0 (13.5-17.5) gm/dL Hct 43.9 (37.0-53.0) % MCV 89 (80-100) fL MCH 30 (26-34) pg MCHC 34 (32-36) gm/dL RDW Coeff of Carlos 11.8 (11.5-15.5) % Plt Count 267 (140-440) K/uL Neut % (Auto) 85.7 H (42.0-72.0) % Lymph % (Auto) 5.9 L (20-44) % [place] % (Auto) 5.0 (0.0-11.0) % Eos % (Auto) 2.2 (0.0-7.0) % Baso % (Auto) 0.3 (0.0-3.0) % Neut # (Auto) 12.30 H (1.7-7.0) K/uL Lymph # (Auto) 0.80 L (0.90-2.90) K/uL [place] # (Auto) 0.70 (0.00-0.90) K/UL Eos # (Auto) 0.30 (0.00-0.50) K/uL Baso # (Auto) 0.00 (0.00-0.30) K/uL Abs Immat Gran (auto) 0.10 (0.00-0.30) K/uL Imm/Tot Granulo (auto) 0.9 % ESR 12 (2-15) mm/hr Sodium 136 (135-149) mmol/L Potassium 3.6 (3.6-5.1) mmol/L Chloride 100 (96-114) mmol/L Carbon Dioxide 27 (20-32) mmol/L Anion Gap 9 (7-15) mEq/L BUN 24 (7-30) mg/dL Creatinine 1.0 (0.5-1.5) mg/dL Estimated Creat Clear 71.12 Estimated GFR 80 ml/min Glucose 103 (60-115) mg/dL Lactate 1.8 (0.5-1.9) mmol/L Calcium 9.3 (8.4-10.6) mg/dL Total Bilirubin 0.6 (0.1-1.5) mg/dL AST 25 (12-35) U/L ALT 30 (4-50) U/L Alkaline Phosphatase 61 (40-150) U/L Troponin I < 0.01 L (0.01-0.04) ng/mL C-Reactive Protein 0.8 (0.5-1.0) mg/dL Total Protein 8.0 (6.0-8.3) g/dL Albumin 4.6 (3.3-5.0) g/dL Urine Color (Yellow) Urine Appearance (Clear) Urine pH (5.0-8.5) Ur Specific [place] (1.000-1.030) Urine Protein (Negative) Urine Glucose (UA) (Negative) Urine Ketones (Negative) Urine Blood (Negative) Urine Nitrite (Negative) Urine Bilirubin (Negative) Urine Urobilinogen (0.2-1.0) Ur Leukocyte Esterase (Negative) Urine RBC (0-2) Urine WBC (0-5) Urine WBC Clumps (None) Ur Squamous Epith Cells (None-Few) Urine Bacteria (None) SARS-CoV-2 (PCR) Negative SARS-CoV-2 (Negative) Influenza Type A (PCR) Negative PCR FLU A (Negative) Influenza Type B (PCR) Negative PCR FLU B (Negative) RSV (PCR) Negative PCR RSV (Negative) Lab Acknowledgement POC Creatinine 1.1 (0.6-1.3) mg/dl 03/12/23 03/12/2303/12/23 Range/Units 17:50 18:05 19:50 WBC (4.50-11.00) K/uL RBC (4.30-5.90) m/uL Hgb (13.5-17.5) gm/dL Hct (37.0-53.0) % MCV (80-100) fL MCH (26-34) pg MCHC (32-36) gm/dL RDW Coeff of Carlos (11.5-15.5) % Plt Count (140-440) K/uL Neut % (Auto) (42.0-72.0) % Lymph % (Auto) (20-44) % [place] % (Auto) (0.0-11.0) % Eos % (Auto) (0.0-7.0) % Baso % (Auto) (0.0-3.0) % Neut # (Auto) (1.7-7.0) K/uL Lymph # (Auto) (0.90-2.90) K/uL [place] # (Auto) (0.00-0.90) K/UL Eos # (Auto) (0.00-0.50) K/uL Baso # (Auto) (0.00-0.30) K/uL Abs Immat Gran (auto) (0.00-0.30) K/uL Imm/Tot Granulo (auto) % ESR (2-15) mm/hr Sodium (135-149) mmol/L Potassium (3.6-5.1) mmol/L Chloride (96-114) mmol/L Carbon Dioxide (20-32) mmol/L Anion Gap (7-15) mEq/L BUN (7-30) mg/dL Creatinine (0.5-1.5) mg/dL Estimated Creat Clear Estimated GFR ml/min Glucose (60-115) mg/dL Lactate 2.3 H (0.5-1.9) mmol/L Calcium (8.4-10.6) mg/dL Total Bilirubin (0.1-1.5) mg/dL AST (12-35) U/L ALT (4-50) U/L Alkaline Phosphatase (40-150) U/L Troponin I (0.01-0.04) ng/mL C-Reactive Protein (0.5-1.0) mg/dL Total Protein (6.0-8.3) g/dL Albumin (3.3-5.0) g/dL Urine Color Yellow (Yellow) Urine Appearance Clear (Clear) Urine pH 7.0 (5.0-8.5) Ur Specific [place] 1.015 (1.000-1.030) Urine Protein Negative (Negative) Urine Glucose (UA) Negative (Negative) Urine Ketones Negative (Negative) Urine Blood Negative (Negative) Urine Nitrite Negative (Negative) Urine Bilirubin Negative (Negative) Urine Urobilinogen 0.2 (0.2-1.0) Ur Leukocyte Esterase Negative (Negative) Urine RBC 0-2 (0-2) Urine WBC 0-2 (0-5) Urine WBC Clumps None (None) Ur Squamous Epith Cells None (None-Few) Urine Bacteria None (None) SARS-CoV-2 (PCR) (Negative) Influenza Type A (PCR) (Negative) Influenza Type B (PCR) (Negative) RSV (PCR) (Negative) Lab Acknowledgement Test Added POC Creatinine (0.6-1.3) mg/dl 03/13/23 03/13/23 03/14/23 Range/Units 00:05 17:10 07:45 WBC 17.03 H 12.95 H (4.50-11.00) K/uL RBC 3.92 L 3.86 L (4.30-5.90) m/uL Hgb 11.9 L 11.8 L (13.5-17.5) gm/dL Hct 35.0 L 34.7 L (37.0-53.0) % MCV 89 90 (80-100) fL MCH 30 31 (26-34) pg MCHC 34 34 (32-36) gm/dL RDW Coeff of Carlos 12.1 12.5 (11.5-15.5) % Plt Count 181 179 (140-440) K/uL Neut % (Auto) 84.7 H 82.0 H (42.0-72.0) % Lymph % (Auto) 6.7 L 7.5 L (20-44) % [place] % (Auto) 7.6 7.7 (0.0-11.0) % Eos % (Auto) 0.4 2.2 (0.0-7.0) % Baso % (Auto) 0.4 0.4 (0.0-3.0) % Neut # (Auto) 14.40 H 10.60 H (1.7-7.0) K/uL Lymph # (Auto) 1.10 1.00 (0.90-2.90) K/uL [place] # (Auto) 1.30 H 1.00 H (0.00-0.90) K/UL Eos # (Auto) 0.10 0.30 (0.00-0.50) K/uL Baso # (Auto) 0.10 0.10 (0.00-0.30) K/uL Abs Immat Gran (auto) 0.00 0.00 (0.00-0.30) K/uL Imm/Tot Granulo (auto) 0.2 0.2 % ESR (2-15) mm/hr Sodium 133 L (135-149) mmol/L Potassium 3.7 (3.6-5.1) mmol/L Chloride 102 (96-114) mmol/L Carbon Dioxide 26 (20-32) mmol/L Anion Gap 5 L (7-15) mEq/L BUN 18 (7-30) mg/dL Creatinine 0.9 (0.5-1.5) mg/dL Estimated Creat Clear 71.12 Estimated GFR 91 ml/min Glucose 109 (60-115) mg/dL Lactate 1.8 0.9 0.7 (0.5-1.9) mmol/L Calcium 8.5 (8.4-10.6) mg/dL Total Bilirubin (0.1-1.5) mg/dL AST (12-35) U/L ALT (4-50) U/L Alkaline Phosphatase (40-150) U/L Troponin I (0.01-0.04) ng/mL C-Reactive Protein 19.0 H 20.8 H (0.5-1.0) mg/dL Total Protein (6.0-8.3) g/dL Albumin (3.3-5.0) g/dL Urine Color (Yellow) Urine Appearance (Clear) Urine pH (5.0-8.5) Ur Specific [place] (1.000-1.030) Urine Protein (Negative) Urine Glucose (UA) (Negative) Urine Ketones (Negative) Urine Blood (Negative) Urine Nitrite (Negative) Urine Bilirubin (Negative) Urine Urobilinogen (0.2-1.0) Ur Leukocyte Esterase (Negative) Urine RBC (0-2) Urine WBC (0-5) Urine WBC Clumps (None) Ur Squamous Epith Cells (None-Few) Urine Bacteria (None) SARS-CoV-2 (PCR) (Negative) Influenza Type A (PCR) (Negative) Influenza Type B (PCR) (Negative) RSV (PCR) (Negative) Lab Acknowledgement POC Creatinine (0.6-1.3) mg/dl <Dennis Calderon MD - Last Filed: 03/14/23 16:23> Lab Results 03/12/23 03/12/23 03/12/23 Range/Units 16:30 16:43 16:45 WBC 14.34 H (4.50-11.00) K/uL RBC 4.95 (4.30-5.90) m/uL Hgb 15.0 (13.5-17.5) gm/dL Hct 43.9 (37.0-53.0) % MCV 89 (80-100) fL MCH 30 (26-34) pg MCHC 34 (32-36) gm/dL RDW Coeff of Carlos 11.8 (11.5-15.5) % Plt Count 267 (140-440) K/uL Neut % (Auto) 85.7 H (42.0-72.0) % Lymph % (Auto) 5.9 L (20-44) % [place] % (Auto) 5.0 (0.0-11.0) % Eos % (Auto) 2.2 (0.0-7.0) % Baso % (Auto) 0.3 (0.0-3.0) % Neut # (Auto) 12.30 H (1.7-7.0) K/uL Lymph # (Auto) 0.80 L (0.90-2.90) K/uL [place] # (Auto) 0.70 (0.00-0.90) K/UL Eos # (Auto) 0.30 (0.00-0.50) K/uL Baso # (Auto) 0.00 (0.00-0.30) K/uL Abs Immat Gran (auto) 0.10 (0.00-0.30) K/uL Imm/Tot Granulo (auto) 0.9 % ESR 12 (2-15) mm/hr Sodium 136 (135-149) mmol/L Potassium 3.6 (3.6-5.1) mmol/L Chloride 100 (96-114) mmol/L Carbon Dioxide 27 (20-32) mmol/L Anion Gap 9 (7-15) mEq/L BUN 24 (7-30) mg/dL Creatinine 1.0 (0.5-1.5) mg/dL Estimated Creat Clear 71.12 Estimated GFR 80 ml/min Glucose 103 (60-115) mg/dL Lactate 1.8 (0.5-1.9) mmol/L Calcium 9.3 (8.4-10.6) mg/dL Total Bilirubin 0.6 (0.1-1.5) mg/dL AST 25 (12-35) U/L ALT 30 (4-50) U/L Alkaline Phosphatase 61 (40-150) U/L Troponin I < 0.01 L (0.01-0.04) ng/mL C-Reactive Protein 0.8 (0.5-1.0) mg/dL Total Protein 8.0 (6.0-8.3) g/dL Albumin 4.6 (3.3-5.0) g/dL Urine Color (Yellow) Urine Appearance (Clear) Urine pH (5.0-8.5) Ur Specific [place] (1.000-1.030) Urine Protein (Negative) Urine Glucose (UA) (Negative) Urine Ketones (Negative) Urine Blood (Negative) Urine Nitrite (Negative) Urine Bilirubin (Negative) Urine Urobilinogen (0.2-1.0) Ur Leukocyte Esterase (Negative) Urine RBC (0-2) Urine WBC (0-5) Urine WBC Clumps (None) Ur Squamous Epith Cells (None-Few) Urine Bacteria (None) SARS-CoV-2 (PCR) Negative SARS-CoV-2 (Negative) Influenza Type A (PCR) Negative PCR FLU A (Negative) Influenza Type B (PCR) Negative PCR FLU B (Negative) RSV (PCR) Negative PCR RSV (Negative) Lab Acknowledgement POC Creatinine 1.1 (0.6-1.3) mg/dl 03/12/23 03/12/23 03/12/23 Range/Units 17:50 18:05 19:50 WBC (4.50-11.00) K/uL RBC (4.30-5.90) m/uL Hgb (13.5-17.5) gm/dL Hct (37.0-53.0) % MCV (80-100) fL MCH (26-34) pg MCHC (32-36) gm/dL RDW Coeff of Carlos (11.5-15.5) % Plt Count (140-440) K/uL Neut % (Auto) (42.0-72.0) % Lymph % (Auto) (20-44) % [place] % (Auto) (0.0-11.0) % Eos % (Auto) (0.0-7.0) % Baso % (Auto) (0.0-3.0) % Neut # (Auto) (1.7-7.0) K/uL Lymph # (Auto) (0.90-2.90) K/uL [place] # (Auto) (0.00-0.90) K/UL Eos # (Auto) (0.00-0.50) K/uL Baso # (Auto) (0.00-0.30) K/uL Abs Immat Gran (auto) (0.00-0.30) K/uL Imm/Tot Granulo (auto) % ESR (2-15) mm/hr Sodium (135-149) mmol/L Potassium (3.6-5.1) mmol/L Chloride (96-114) mmol/L Carbon Dioxide (20-32) mmol/L Anion Gap (7-15) mEq/L BUN (7-30) mg/dL Creatinine (0.5-1.5) mg/dL Estimated Creat Clear Estimated GFR ml/min Glucose (60-115) mg/dL Lactate 2.3 H (0.5-1.9) mmol/L Calcium (8.4-10.6) mg/dL Total Bilirubin (0.1-1.5) mg/dL AST (12-35) U/L ALT (4-50) U/L Alkaline Phosphatase (40-150) U/L Troponin I (0.01-0.04) ng/mL C-Reactive Protein (0.5-1.0) mg/dL Total Protein (6.0-8.3) g/dL Albumin (3.3-5.0) g/dL Urine Color Yellow (Yellow) Urine Appearance Clear (Clear) Urine pH 7.0 (5.0-8.5) Ur Specific [place] 1.015 (1.000-1.030) Urine Protein Negative (Negative) Urine Glucose (UA) Negative (Negative) Urine Ketones Negative (Negative) Urine Blood Negative (Negative) Urine Nitrite Negative (Negative) Urine Bilirubin Negative (Negative) Urine Urobilinogen 0.2 (0.2-1.0) Ur Leukocyte Esterase Negative (Negative) Urine RBC 0-2 (0-2) Urine WBC 0-2 (0-5) Urine WBC Clumps None (None) Ur Squamous Epith Cells None (None-Few) Urine Bacteria None (None) SARS-CoV-2 (PCR) (Negative) Influenza Type A (PCR) (Negative) Influenza Type B (PCR) (Negative) RSV (PCR) (Negative) Lab Acknowledgement Test Added POC Creatinine (0.6-1.3) mg/dl 03/13/23 03/13/23 03/14/23 Range/Units 00:05 17:10 07:45 WBC 17.03 H 12.95 H (4.50-11.00) K/uL RBC 3.92 L 3.86 L (4.30-5.90) m/uL Hgb 11.9 L 11.8 L (13.5-17.5) gm/dL Hct 35.0 L 34.7 L (37.0-53.0) % MCV 89 90 (80-100) fL MCH 30 31 (26-34) pg MCHC 34 34 (32-36) gm/dL RDW Coeff of Carlos 12.1 12.5 (11.5-15.5) % Plt Count 181 179 (140-440) K/uL Neut % (Auto) 84.7 H 82.0 H (42.0-72.0) % Lymph % (Auto) 6.7 L 7.5 L (20-44) % [place] % (Auto) 7.6 7.7 (0.0-11.0) % Eos % (Auto) 0.4 2.2 (0.0-7.0) % Baso % (Auto) 0.4 0.4 (0.0-3.0) % Neut # (Auto) 14.40 H 10.60 H (1.7-7.0) K/uL Lymph # (Auto) 1.10 1.00 (0.90-2.90) K/uL [place] # (Auto) 1.30 H 1.00 H (0.00-0.90) K/UL Eos # (Auto) 0.10 0.30 (0.00-0.50) K/uL Baso # (Auto) 0.10 0.10 (0.00-0.30) K/uL Abs Immat Gran (auto) 0.00 0.00 (0.00-0.30) K/uL Imm/Tot Granulo (auto) 0.2 0.2 % ESR (2-15) mm/hr Sodium 133 L (135-149) mmol/L Potassium 3.7 (3.6-5.1) mmol/L Chloride 102 (96-114) mmol/L Carbon Dioxide 26 (20-32) mmol/L Anion Gap 5 L (7-15) mEq/L BUN 18 (7-30) mg/dL Creatinine 0.9 (0.5-1.5) mg/dL Estimated Creat Clear 71.12 Estimated GFR 91 ml/min Glucose 109 (60-115) mg/dL Lactate 1.8 0.9 0.7 (0.5-1.9) mmol/L Calcium 8.5 (8.4-10.6) mg/dL Total Bilirubin (0.1-1.5) mg/dL AST (12-35) U/L ALT (4-50) U/L Alkaline Phosphatase (40-150) U/L Troponin I (0.01-0.04) ng/mL C-Reactive Protein 19.0 H 20.8 H (0.5-1.0) mg/dL Total Protein (6.0-8.3) g/dL Albumin (3.3-5.0) g/dL Urine Color (Yellow) Urine Appearance (Clear) Urine pH (5.0-8.5) Ur Specific [place] (1.000-1.030) Urine Protein (Negative) Urine Glucose (UA) (Negative) Urine Ketones (Negative) Urine Blood (Negative) Urine Nitrite (Negative) Urine Bilirubin (Negative) Urine Urobilinogen (0.2-1.0) Ur Leukocyte Esterase (Negative) Urine RBC (0-2) Urine WBC (0-5) Urine WBC Clumps (None) Ur Squamous Epith Cells (None-Few) Urine Bacteria (None) SARS-CoV-2 (PCR) (Negative) Influenza Type A (PCR) (Negative) Influenza Type B (PCR) (Negative) RSV (PCR) (Negative) Lab Acknowledgement POC Creatinine (0.6-1.3) mg/dl <Amadeo Richmond MD - Last Filed: 03/17/23 08:23> Lab Results 03/12/23 03/12/23 03/12/23 Range/Units 16:30 16:43 16:45 WBC 14.34 H (4.50-11.00) K/uL RBC 4.95 (4.30-5.90) m/uL Hgb 15.0 (13.5-17.5) gm/dL Hct 43.9 (37.0-53.0) % MCV 89 (80-100) fL MCH 30 (26-34) pg MCHC 34 (32-36) gm/dL RDW Coeff of Carlos 11.8 (11.5-15.5) % Plt Count 267 (140-440) K/uL Neut % (Auto) 85.7 H (42.0-72.0) % Lymph % (Auto) 5.9 L (20-44) % [place] % (Auto) 5.0 (0.0-11.0) % Eos % (Auto) 2.2 (0.0-7.0) % Baso % (Auto) 0.3 (0.0-3.0) % Neut # (Auto) 12.30 H (1.7-7.0) K/uL Lymph # (Auto) 0.80 L (0.90-2.90) K/uL [place] # (Auto) 0.70 (0.00-0.90) K/UL Eos # (Auto) 0.30 (0.00-0.50) K/uL Baso # (Auto) 0.00 (0.00-0.30) K/uL Abs Immat Gran (auto) 0.10 (0.00-0.30) K/uL Imm/Tot Granulo (auto) 0.9 % ESR 12 (2-15) mm/hr Sodium 136 (135-149) mmol/L Potassium 3.6 (3.6-5.1) mmol/L Chloride 100 (96-114) mmol/L Carbon Dioxide 27 (20-32) mmol/L Anion Gap 9 (7-15) mEq/L BUN 24 (7-30) mg/dL Creatinine 1.0 (0.5-1.5) mg/dL Estimated Creat Clear 71.12 Estimated GFR 80 ml/min Glucose 103 (60-115) mg/dL Lactate 1.8 (0.5-1.9) mmol/L Calcium 9.3 (8.4-10.6) mg/dL Total Bilirubin 0.6 (0.1-1.5) mg/dL AST 25 (12-35) U/L ALT 30 (4-50) U/L Alkaline Phosphatase 61 (40-150) U/L Troponin I < 0.01 L (0.01-0.04) ng/mL C-Reactive Protein 0.8 (0.5-1.0) mg/dL Total Protein 8.0 (6.0-8.3) g/dL Albumin 4.6 (3.3-5.0) g/dL Urine Color (Yellow) Urine Appearance (Clear) Urine pH (5.0-8.5) Ur Specific [place] (1.000-1.030) Urine Protein (Negative) Urine Glucose (UA) (Negative) Urine Ketones (Negative) Urine Blood (Negative) Urine Nitrite (Negative) Urine Bilirubin (Negative) Urine Urobilinogen (0.2-1.0) Ur Leukocyte Esterase (Negative) Urine RBC (0-2) Urine WBC (0-5) Urine WBC Clumps (None) Ur Squamous Epith Cells (None-Few) Urine Bacteria (None) SARS-CoV-2 (PCR) Negative SARS-CoV-2 (Negative) Influenza Type A (PCR) Negative PCR FLU A (Negative) Influenza Type B (PCR) Negative PCR FLU B (Negative) RSV (PCR) Negative PCR RSV (Negative) Lab Acknowledgement POC Creatinine 1.1 (0.6-1.3) mg/dl 03/12/23 03/12/23 03/12/23 Range/Units 17:50 18:05 19:50 WBC (4.50-11.00) K/uL RBC (4.30-5.90) m/uL Hgb (13.5-17.5) gm/dL Hct (37.0-53.0) % MCV (80-100) fL MCH (26-34) pg MCHC (32-36) gm/dL RDW Coeff of Carlos (11.5-15.5) % Plt Count (140-440) K/uL Neut % (Auto) (42.0-72.0) % Lymph % (Auto) (20-44) % [place] % (Auto) (0.0-11.0) % Eos % (Auto) (0.0-7.0) % Baso % (Auto) (0.0-3.0) % Neut # (Auto) (1.7-7.0) K/uL Lymph # (Auto) (0.90-2.90) K/uL [place] # (Auto) (0.00-0.90) K/UL Eos # (Auto) (0.00-0.50) K/uL Baso # (Auto) (0.00-0.30) K/uL Abs Immat Gran (auto) (0.00-0.30) K/uL Imm/Tot Granulo (auto) % ESR (2-15) mm/hr Sodium (135-149) mmol/L Potassium (3.6-5.1) mmol/L Chloride (96-114) mmol/L Carbon Dioxide (20-32) mmol/L Anion Gap (7-15) mEq/L BUN (7-30) mg/dL Creatinine (0.5-1.5) mg/dL Estimated Creat Clear Estimated GFR ml/min Glucose (60-115) mg/dL Lactate 2.3 H (0.5-1.9) mmol/L Calcium (8.4-10.6) mg/dL Total Bilirubin (0.1-1.5) mg/dL AST (12-35) U/L ALT (4-50) U/L Alkaline Phosphatase (40-150) U/L Troponin I (0.01-0.04) ng/mL C-Reactive Protein (0.5-1.0) mg/dL Total Protein (6.0-8.3) g/dL Albumin (3.3-5.0) g/dL Urine Color Yellow (Yellow) Urine Appearance Clear (Clear) Urine pH 7.0 (5.0-8.5) Ur Specific [place] 1.015 (1.000-1.030) Urine Protein Negative (Negative) Urine Glucose (UA) Negative (Negative) Urine Ketones Negative (Negative) Urine Blood Negative (Negative) Urine Nitrite Negative (Negative) Urine Bilirubin Negative (Negative) Urine Urobilinogen 0.2 (0.2-1.0) Ur Leukocyte Esterase Negative (Negative) Urine RBC 0-2 (0-2) Urine WBC 0-2 (0-5) Urine WBC Clumps None (None) Ur Squamous Epith Cells None (None-Few) Urine Bacteria None (None) SARS-CoV-2 (PCR) (Negative) Influenza Type A (PCR) (Negative) Influenza Type B (PCR) (Negative) RSV (PCR) (Negative) Lab Acknowledgement Test Added POC Creatinine (0.6-1.3) mg/dl 03/13/23 03/13/23 03/14/23 Range/Units 00:05 17:10 07:45 WBC 17.03 H 12.95 H (4.50-11.00) K/uL RBC 3.92 L 3.86 L (4.30-5.90) m/uL Hgb 11.9 L 11.8 L (13.5-17.5) gm/dL Hct 35.0 L 34.7 L (37.0-53.0) % MCV 89 90 (80-100) fL MCH 30 31 (26-34) pg MCHC 34 34 (32-36) gm/dL RDW Coeff of Carlos 12.1 12.5 (11.5-15.5) % Plt Count 181 179 (140-440) K/uL Neut % (Auto) 84.7 H 82.0 H (42.0-72.0) % Lymph % (Auto) 6.7 L 7.5 L (20-44) % [place] % (Auto) 7.6 7.7 (0.0-11.0) % Eos % (Auto) 0.4 2.2 (0.0-7.0) % Baso % (Auto) 0.4 0.4 (0.0-3.0) % Neut # (Auto) 14.40 H 10.60 H (1.7-7.0) K/uL Lymph # (Auto) 1.10 1.00 (0.90-2.90) K/uL [place] # (Auto) 1.30 H 1.00 H (0.00-0.90) K/UL Eos # (Auto) 0.10 0.30 (0.00-0.50) K/uL Baso # (Auto) 0.10 0.10 (0.00-0.30) K/uL Abs Immat Gran (auto) 0.00 0.00 (0.00-0.30) K/uL Imm/Tot Granulo (auto) 0.2 0.2 % ESR (2-15) mm/hr Sodium 133 L (135-149) mmol/L Potassium 3.7 (3.6-5.1) mmol/L Chloride 102 (96-114) mmol/L Carbon Dioxide 26 (20-32) mmol/L Anion Gap 5 L (7-15) mEq/L BUN 18 (7-30) mg/dL Creatinine 0.9 (0.5-1.5) mg/dL Estimated Creat Clear 71.12 Estimated GFR 91 ml/min Glucose 109 (60-115) mg/dL Lactate 1.8 0.9 0.7 (0.5-1.9) mmol/L Calcium 8.5 (8.4-10.6) mg/dL Total Bilirubin (0.1-1.5) mg/dL AST (12-35) U/L ALT (4-50) U/L Alkaline Phosphatase (40-150) U/L Troponin I (0.01-0.04) ng/mL C-Reactive Protein 19.0 H 20.8 H (0.5-1.0) mg/dL Total Protein (6.0-8.3) g/dL Albumin (3.3-5.0) g/dL Urine Color (Yellow) Urine Appearance (Clear) Urine pH (5.0-8.5) Ur Specific [place] (1.000-1.030) Urine Protein (Negative) Urine Glucose (UA) (Negative) Urine Ketones (Negative) Urine Blood (Negative) Urine Nitrite (Negative) Urine Bilirubin (Negative) Urine Urobilinogen (0.2-1.0) Ur Leukocyte Esterase (Negative) Urine RBC (0-2) Urine WBC (0-5) Urine WBC Clumps (None) Ur Squamous Epith Cells (None-Few) Urine Bacteria (None) SARS-CoV-2 (PCR) (Negative) Influenza Type A (PCR) (Negative) Influenza Type B (PCR) (Negative) RSV (PCR) (Negative) Lab Acknowledgement POC Creatinine (0.6-1.3) mg/dl <Tomás Atwood MD - Last Filed: 04/11/23 08:03> Imaging Data Chest x-ray: Radiologist's impression: Linear fibrosis or atelectasis left mid lung. No acute cardiopulmonary process identified. Dictated by Dexter Damico MD @ 03/12/2023 6:17:05 PM <Christopher Arrington DO - Last Filed: 03/13/23 00:53> Lumbar spine CT: Radiologist's impression: 1. Postsurgical changes secondary to interval posterior instrumented fusion and laminectomy at L1-2. Intact well-seated surgical hardware. Fluid collection within the posterior subcutaneous soft tissues at the operative level is nonspecific, though differential considerations include seroma or superimposed infection in an appropriate clinical setting. No endplate erosion to suggest sequelae of discitis osteomyelitis. 2. No acute fracture. 3. Multilevel lumbar spondylosis. Please note that all CT scans at this facility use dose modulation, iterative reconstruction, and/or weight-based dosing when appropriate to reduce radiation dose to as low as reasonably achievable. Dictated by Isiah Schwarz MD @ 03/12/2023 7:59:15 PM <Christopher Arrington DO - Last Filed: 03/13/23 00:53> Thoracic spine CT: Radiologist's impression: 1. No paraspinal fluid collection. No endplate destruction to suggest sequelae of discitis osteomyelitis. 2. No acute fracture. 3. Advanced multilevel thoracic spondylosis. Please note that all CT scans at this facility use dose modulation, iterative reconstruction, and/or weight-based dosing when appropriate to reduce radiation dose to as low as reasonably achievable. Dictated by Isiah Schwarz MD @ 03/12/2023 7:50:46 PM <Christopher Arrington DO - Last Filed: 03/13/23 00:53> MR lumbar spine: Attestation: I have reviewed the pertinent imaging results. <Nhi Avalos MD - Last Filed: 03/13/23 18:55> Radiologist's impression: Patient: TJ RASHEED Facility:?[facility] Patient ID:?[id number] Site Patient ID:?[id number]. Site :?[id number] Study:?MRI Spine Lumbar W/WO 20 CC DOTAREM-03/13/2023 11:51:13 AM Ordering Physician:Edmar White Final Report: Indication: FLUID COLLECTION SEEN ON CT Technique: Noncontrast sagittal and axial T1, T2, and sagittal STIR sequences are provided. Postcontrast sagittal and axial T1 weighted images were obtained after administration of 20 cc Dotarem IV contrast. Comparison: 03/12/2023 CT, MRI 01/13/2023 Findings: Levoscoliosis with apex at L2-3. Stable chronic grade 2 anterolisthesis at L4-5 with mature interbody fusion and chronic bilateral L4 pars defects. Postoperative changes of L1-2 laminectomy and posterior instrumented fusion. Redemonstrated is a fluid collection in the subcutaneous soft tissues extending from the T11-12 level to the L2-3 level along the incision site that extends to the laminectomy site. The subcutaneous portion of the collection measures 10 cm craniocaudal x 4.2 cm transverse and the deep collection measures 8.2 centimeter transversely x 3.9 cm AP x 4.1 cm craniocaudal and extends long 11 mg site and left fusion hardware (image 19 series 5). The fluid collections demonstrate rim enhancement. Mild mass effect on the thecal sac. The conus medullaris is normal in signal and location. No aggressive osseous lesions. Multilevel degenerative changes in the lumbar spine. T11-12: Circumferential disc bulge indents the ventral thecal sac. Bilateral facet arthrosis. Moderate right neural foramen narrowing. No left neural foramen narrowing. T12-L1: Circumferential disc bulge. Moderate facet arthrosis and left ligamentum flavum buckling. Mild spinal canal stenosis. No neural foramina narrowing. L1-2: A circumferential disc bulge. Laminectomy postoperative changes. Dorsal epidural fluid collection results in mild mass effect on the thecal sac and mild spinal canal narrowing. Mild right neural foramen narrowing. No left neural foramen narrowing. L2-3: Circumferential disc bulge, endplate osteophytic spurring moderate facet arthrosis and dorsal epidural fat contribute to moderate spinal canal stenosis. No neural foramina narrowing. L3-4: Circumferential disc bulge and moderate facet arthrosis. Mild subarticular recess stenosis. Moderate right and [id number] left neural foramen narrowing. L4-5: Grade 2 anterolisthesis with diffuse uncovering of the disc and osteophytic spurring. Moderate facet arthrosis. Moderately severe spinal canal stenosis (image 33 series 5). Severe right and moderate left neural foramen narrowing with impingement of the exiting nerve roots. L5-S1: Moderate interspace narrowing. Circumferential disc bulge and endplate osteophytic spurring. No significant spinal canal stenosis. Severe left and moderate right neural foramina stenosis. Impression: 1. Postoperative changes of L1-2 laminectomy and posterior instrumented fusion. Large rim enhancing fluid collection both along the subcutaneous surgical site as well is extending to the laminectomy site and along the left fusion hardware. Findings may represent postoperative hematoma or seroma, however infected collection cannot be excluded based on imaging. There is mild mass effect on the thecal sac. No discitis or osteomyelitis. 2. At L2-3, moderate central canal stenosis. 3. At L3-4, mild subarticular recess stenosis bilaterally, moderate right and mild moderate left neural foramen stenosis. 4. At L4-5, grade 2 anterolisthesis with chronic pars defects. Moderate-severe spinal canal stenosis, severe right and moderate left neural foramina stenosis. 5. At L5-S1, severe left and moderate right neural foramina stenosis. Dictated by Aden Stallings MD @ 03/13/2023 12:54:34 PM (Electronic Signature) <Nhi Avalos MD - Last Filed: 03/13/23 18:55> ECG Data Attestation: I personally reviewed and interpreted this ECG as follows: <Christopher Arrington DO - Last Filed: 03/13/23 00:53> Interpretation: Normal sinus rhythm with a rate of 90 beats per minute, left axis the hand no cough, no ST or T-wave abnormalities <Christopher Arrington DO - Last Filed: 03/13/23 00:53> Discharge Plan Discharge Clinical Impression: Deep postoperative wound infection, Fusion of lumbar spine, Sepsis <Christopher Arrington DO - Last Filed: 03/13/23 00:53> Patient Disposition: [facility] <Christopher Arrington DO - Last Filed: 03/13/23 00:53> Condition: Improved <Christopher Arrington DO - Last Filed: 03/13/23 00:53> Additional Instructions: Transferred [facility], once bed available, discussed with patient, family, and his surgeon. <Christopher Arrington DO - Last Filed: 03/13/23 00:53>
--- NOTE | 2023-03-12 16:54 | CRLHL7_ITS ---
For Patients: As a result of the Cures Act, medical imaging exams and procedure reports are released immediately into your electronic medical record. You may view this report before your referring provider. If you have questions, please contact your health care provider. INDICATION: Fever. L1-L2 decompression and fusion February 23. TECHNIQUE: AP portable chest. COMPARISON: July 06, 2019. FINDINGS: Shallow inspiration. Linear fibrosis or atelectasis left mid lung. Mild cardiac enlargement accentuated by the portable technique. No focal or diffuse infiltrate. Resection or erosion of the distal right clavicle. Degenerative change of the right glenohumeral joint. IMPRESSION: Linear fibrosis or atelectasis left mid lung. No acute cardiopulmonary process identified. Dictated by Dexter Damico MD @ 03/12/2023 6:17:05 PM (Electronically Signed)
[2023-03-12 16:59] LABS: Basophils Percent Auto 0.3 % (0.0-3.0); Eosinophils Percent Auto 2.2 % (0.0-7.0); Hematocrit 43.9 % (37.0-53.0); Immature Granulocytes Pct Auto 0.9 %; Lymphocytes Percent Auto 5.9 % (20-44); Mean Corpuscular HGB Conc 34 gm/dL (32-36); Mean Corpuscular Hemoglobin 30 pg (26-34); Mean Corpuscular Volume 89 fL (80-100); Neutrophils Percent Auto 85.7 % (42.0-72.0); Platelet Count* 267 K/uL (140-440); RDW Coefficient of Variation % 11.8 % (11.5-15.5); Red Blood Count 4.95 m/uL (4.30-5.90); White Blood Count* 14.34 K/uL (4.50-11.00)
[2023-03-12 17:01] LABS: Lactate* 1.8 mmol/L (0.5-1.9); Slide Review Reflex No
[2023-03-12 17:03] LABS: Albumin* 4.6 g/dL (3.3-5.0); Chloride* 100 mmol/L (96-114)
[2023-03-12 17:04] LABS: Potassium* 3.6 mmol/L (3.6-5.1); Sodium* 136 mmol/L (135-149)
[2023-03-12 17:06] LABS: Anion Gap 9 mEq/L (7-15); Aspartate Amino Transferase* 25 U/L (12-35); Bilirubin Total* 0.6 mg/dL (0.1-1.5); Carbon Dioxide* 27 mmol/L (20-32); Est. Creatinine Clearance* 71.12; Estimated Glomerular Filt Rate 80 ml/min
[2023-03-12] MEDS: LACTATED RINGERS 1000 ML 1,000 ML IV ×2 (17:06→19:58)
[2023-03-12] MEDS: ONDANSETRON 2 MG/ML inj 4 MG IVP (17:06)
[2023-03-12] MEDS: ACETAMINOPHEN 325 MG TABLET 650 MG PO ×2 (17:06→22:29)
[2023-03-12 17:07] LABS: Alanine Aminotransferase* 30 U/L (4-50); Alkaline Phosphatase* 61 U/L (40-150); Blood Urea Nitrogen* 24 mg/dL (7-30); Calcium* 9.3 mg/dL (8.4-10.6); Glucose* 103 mg/dL (60-115)
[2023-03-12 17:23] LABS: Troponin I* < 0.01 ng/mL (0.01-0.04)
[2023-03-12 17:31] LABS: PCR FLU A Negative PCR FLU A (Negative); PCR FLU B Negative PCR FLU B (Negative); PCR RSV Negative PCR RSV (Negative)
[2023-03-12 17:32] LABS: SARS PCR* Negative SARS-CoV-2 (Negative)
[2023-03-12 17:58] LABS: Appearance Urine Clear (Clear); Bilirubin Urine Negative (Negative); Blood Urine Negative (Negative); Color Urine Yellow (Yellow); Glucose Urine Negative (Negative); Ketones Urine Negative (Negative); Leukocyte Esterase Urine Negative (Negative); Nitrite Urine Negative (Negative); Protein Urine Negative (Negative); Specific Gravity Urine 1.015 (1.000-1.030); Urobilinogen Urine 0.2 (0.2-1.0)
[2023-03-12 18:17] LABS: RBC Urine 0-2 (0-2); WBC Urine 0-2 (0-5)
[2023-03-12] MEDS: ACETAMINOPHEN 325 MG TABLET PO (18:19)
[2023-03-12 18:22] LABS: C Reactive Protein* 0.8 mg/dL (0.5-1.0)
[2023-03-12 18:50] LABS: Erythrocyte SedimentationRate* 12 mm/hr (2-15)
--- NOTE | 2023-03-12 19:35 | ED.NURSE ---
Pt assisted to void into urinal. HR increased up to ~120-130 while up urinating. MD notified.
[2023-03-12 20:04] LABS: Lactate* 2.3 mmol/L (0.5-1.9)
[2023-03-12] MEDS: PIPERACILLIN/TAZOBACTAM 3.375 GM in 0.9 % SODIUM CHLORIDE Mini-bag 100 ML IVPB (20:23)
[2023-03-12] MEDS: LACTATED RINGERS 1000 ML 1,000 ML 1700 ML IV (20:53)
[2023-03-12] MEDS: 0.9 % SODIUM CHLORIDE 250 ml 250 ML IV (21:58)
--- NOTE | 2023-03-12 22:29 | ED.NURSE ---
Per provider, okay to take home dose of Eliquis at bedtime.
[2023-03-13] VITALS (94 sets, daily range): BP systolic 95–124; BP diastolic 44–79; PULSE 62–136; RESP 16–22; TEMP 36.9–39.3; O2SAT 91–98
[2023-03-13 00:13] LABS: Lactate* 1.8 mmol/L (0.5-1.9)
--- NOTE | 2023-03-13 01:16 | MR_ITS ---
Patient: [facility] Facility:?[facility] Patient ID:?[id number] Site Patient ID:?[id number]. Site :?[id number] Study:?MRI-Spine Lumbar W/WO 20 CC DOTAREM-03/13/2023 11:51:13 AM Ordering Physician:Edmar White Final Report: Indication: FLUID COLLECTION SEEN ON CT Technique: Noncontrast sagittal and axial T1, T2, and sagittal STIR sequences are provided. Postcontrast sagittal and axial T1 weighted images were obtained after administration of 20 cc Dotarem IV contrast. Comparison: 03/12/2023 CT, MRI 01/13/2023 Findings: Levoscoliosis with apex at L2-3. Stable chronic grade 2 anterolisthesis at L4-5 with mature interbody fusion and chronic bilateral L4 pars defects. Postoperative changes of L1-2 laminectomy and posterior instrumented fusion. Redemonstrated is a fluid collection in the subcutaneous soft tissues extending from the T11-12 level to the L2-3 level along the incision site that extends to the laminectomy site. The subcutaneous portion of the collection measures 10 cm craniocaudal x 4.2 cm transverse and the deep collection measures 8.2 centimeter transversely x 3.9 cm AP x 4.1 cm craniocaudal and extends long 11 mg site and left fusion hardware (image 19 series 5). The fluid collections demonstrate rim enhancement. Mild mass effect on the thecal sac. The conus medullaris is normal in signal and location. No aggressive osseous lesions. Multilevel degenerative changes in the lumbar spine. T11-12: Circumferential disc bulge indents the ventral thecal sac. Bilateral facet arthrosis. Moderate right neural foramen narrowing. No left neural foramen narrowing. T12-L1: Circumferential disc bulge. Moderate facet arthrosis and left ligamentum flavum buckling. Mild spinal canal stenosis. No neural foramina narrowing. L1-2: A circumferential disc bulge. Laminectomy postoperative changes. Dorsal epidural fluid collection results in mild mass effect on the thecal sac and mild spinal canal narrowing. Mild right neural foramen narrowing. No left neural foramen narrowing. L2-3: Circumferential disc bulge, endplate osteophytic spurring moderate facet arthrosis and dorsal epidural fat contribute to moderate spinal canal stenosis. No neural foramina narrowing. L3-4: Circumferential disc bulge and moderate facet arthrosis. Mild subarticular recess stenosis. Moderate right and [id number] left neural foramen narrowing. L4-5: Grade 2 anterolisthesis with diffuse uncovering of the disc and osteophytic spurring. Moderate facet arthrosis. Moderately severe spinal canal stenosis (image 33 series 5). Severe right and moderate left neural foramen narrowing with impingement of the exiting nerve roots. L5-S1: Moderate interspace narrowing. Circumferential disc bulge and endplate osteophytic spurring. No significant spinal canal stenosis. Severe left and moderate right neural foramina stenosis. Impression: 1. Postoperative changes of L1-2 laminectomy and posterior instrumented fusion. Large rim enhancing fluid collection both along the subcutaneous surgical site as well is extending to the laminectomy site and along the left fusion hardware. Findings may represent postoperative hematoma or seroma, however infected collection cannot be excluded based on imaging. There is mild mass effect on the thecal sac. No discitis or osteomyelitis. 2. At L2-3, moderate central canal stenosis. 3. At L3-4, mild subarticular recess stenosis bilaterally, moderate right and mild moderate left neural foramen stenosis. 4. At L4-5, grade 2 anterolisthesis with chronic pars defects. Moderate-severe spinal canal stenosis, severe right and moderate left neural foramina stenosis. 5. At L5-S1, severe left and moderate right neural foramina stenosis. Dictated by Aden Stallings MD @ 03/13/2023 12:54:34 PM Signed by:?Aden Stallings MD @03/13/2023 12:54:34 PM (Electronic Signature)
[2023-03-13] MEDS: PIPERACILLIN/TAZOBACTAM 3.375 GM in 0.9 % SODIUM CHLORIDE Mini-bag 100 ML IVPB ×4 (02:10→20:24)
[2023-03-13] MEDS: ACETAMINOPHEN 500 MG TABLET 1000 MG PO ×4 (02:35→22:30)
--- NOTE | 2023-03-13 07:09 | ED.NURSE ---
called and updated on pt. Per Ovidio, we should know by 1000 when pt will get a bed.
--- NOTE | 2023-03-13 08:23 | ED.NURSE ---
Pt reporting a headache
--- NOTE | 2023-03-13 09:27 | ED.NURSE ---
Pt surgery site on his back had purulent drainage coming out of his back. Drainage was shooting out of his back. Pressure bandage was applied to pt back. Pt notes to be more relieved of pain in his back.
--- NOTE | 2023-03-13 10:10 | ED.NURSE ---
pt in radiology getting MRI done.
--- NOTE | 2023-03-13 11:09 | ED.NURSE ---
Pt soaked through first pressure bandage that was applied earlier, another pressure bandage reapplied. MD notified of wound drainage
--- NOTE | 2023-03-13 15:30 | ED.NURSE ---
Administered 1,000mg over maximum dose within 24 hour period to pt, MD is aware. Pt is vitally stable
[2023-03-13 17:16] LABS: Basophils Percent Auto 0.4 % (0.0-3.0); Eosinophils Percent Auto 0.4 % (0.0-7.0); Hemoglobin* 11.9 gm/dL (13.5-17.5); Immature Granulocytes Pct Auto 0.2 %; Lactate* 0.9 mmol/L (0.5-1.9); Lymphocytes Percent Auto 6.7 % (20-44); Mean Corpuscular HGB Conc 34 gm/dL (32-36); Mean Corpuscular Hemoglobin 30 pg (26-34); Mean Corpuscular Volume 89 fL (80-100); Monocytes Percent Auto 7.6 % (0.0-11.0); Neutrophils Percent Auto 84.7 % (42.0-72.0); Platelet Count* 181 K/uL (140-440); RDW Coefficient of Variation % 12.1 % (11.5-15.5); Red Blood Count 3.92 m/uL (4.30-5.90); Slide Review Reflex No; White Blood Count* 17.03 K/uL (4.50-11.00)
[2023-03-13 17:36] LABS: Chloride* 102 mmol/L (96-114); Sodium* 133 mmol/L (135-149)
[2023-03-13 17:37] LABS: Potassium* 3.7 mmol/L (3.6-5.1)
[2023-03-13 17:39] LABS: Creatinine* 0.9 mg/dL (0.5-1.5); Est. Creatinine Clearance* 71.12; Estimated Glomerular Filt Rate 91 ml/min
[2023-03-13 17:40] LABS: Anion Gap 5 mEq/L (7-15); Blood Urea Nitrogen* 18 mg/dL (7-30); Calcium* 8.5 mg/dL (8.4-10.6); Carbon Dioxide* 26 mmol/L (20-32); Glucose* 109 mg/dL (60-115)
--- NOTE | 2023-03-13 19:16 | ED.NURSE ---
pt report given to oncyareli RN
--- NOTE | 2023-03-13 19:17 | ED.NURSE ---
Pt asking if he should take his losartan tonight. Per , hold losartan dose. Pt updated.
--- NOTE | 2023-03-13 19:58 | ED.NURSE ---
Pt's spinal wound oozing copious amounts of purulent, brown drainage. Pt's skin surrounding wound cleansed with hibicleanse, sterile water, and sterile gauze. Pt's wound redressed with large telfa, abdominal pads x3, and foam tape.
--- NOTE | 2023-03-13 23:45 | ED.NURSE ---
Pt's wound redressed accordingly d/t drainage.
[2023-03-14] VITALS (44 sets, daily range): BP systolic 97–120; BP diastolic 34–102; PULSE 48–126; RESP 16–18; TEMP 36.8–37.2; O2SAT 91–97
--- NOTE | 2023-03-14 01:44 | ED.NURSE ---
Pt's skin around wound cleansed and wound redressed d/t excessive drainage.
[2023-03-14] MEDS: PIPERACILLIN/TAZOBACTAM 3.375 GM in 0.9 % SODIUM CHLORIDE Mini-bag 100 ML IVPB ×4 (02:09→20:07)
[2023-03-14] MEDS: ACETAMINOPHEN 500 MG TABLET 1000 MG PO ×3 (04:46→19:03)
--- NOTE | 2023-03-14 05:12 | PC.NURSE ---
dressing changed per instructions, detail in previous dressing changes notes.
[2023-03-14 07:52] LABS: Lactate* 0.7 mmol/L (0.5-1.9)
[2023-03-14 08:06] LABS: Basophils Percent Auto 0.4 % (0.0-3.0); Eosinophils Percent Auto 2.2 % (0.0-7.0); Hematocrit 34.7 % (37.0-53.0); Hemoglobin* 11.8 gm/dL (13.5-17.5); Immature Granulocytes Pct Auto 0.2 %; Lymphocytes Percent Auto 7.5 % (20-44); Mean Corpuscular HGB Conc 34 gm/dL (32-36); Mean Corpuscular Hemoglobin 31 pg (26-34); Mean Corpuscular Volume 90 fL (80-100); Monocytes Percent Auto 7.7 % (0.0-11.0); Platelet Count* 179 K/uL (140-440); RDW Coefficient of Variation % 12.5 % (11.5-15.5); Red Blood Count 3.86 m/uL (4.30-5.90); White Blood Count* 12.95 K/uL (4.50-11.00)
[2023-03-14 08:27] LABS: Slide Review Reflex No
[2023-03-14 08:40] LABS: C Reactive Protein* 20.8 mg/dL (0.5-1.0)
--- NOTE | 2023-03-14 09:03 | ED.NURSE ---
Pt assisted to use urinal. Small amount of yellow/ brown cloudy discharge leaking from pin-hole sized wound in back. Area cleansed with wound lamp cleaner and sterile gauze. Dressed with long telfa pad over incision site and 2 abd pads over telfa. Secured in place with silk tape. 150 mL dark yellow urine.
--- NOTE | 2023-03-14 09:08 | ED.NURSE ---
After Zosyn infusion, large bump noted at IV site. Pt reports burning / irritation at the end of infusion but did not call out. Pt educated to push call button if any infusion does not feel right. Pt verbalized understanding. IV removed from right forearm. Warm blanket applied to area for approximately 15 minutes. Pt reports no pain currently. Dr. Joshi notified.
--- NOTE | 2023-03-14 14:34 | ED.NURSE ---
Pt provided w/ meal tray. Denies pain at this time. Aware of plan of care and continued wait for bed w/ [facility].
--- NOTE | 2023-03-14 15:44 | PC.NURSE ---
Dressing to back saturated, dressing changed. Pt sitting up in room, finished dinner. States pain isn't too bad, states more uncomfortable lying in bed.
[2023-03-14] MEDS: dilTIAZem 240 MG CAP (CD) PO (17:21)
[2023-03-14] MEDS: TAMSULOSIN HCL 0.4 MG CAPSULE PO (17:21)
[2023-03-14] MEDS: hydroCHLOROthiazide 25 MG TABLET PO (17:30)
[2023-03-14] MEDS: LOSARTAN POTASSIUM 50 MG TABLET 100 MG PO (17:30)
[2023-03-14] MEDS: HEPARIN 5,000 UNIT/0.5 ML INJ 5000 UNIT SUBCUT (17:39)
--- NOTE | 2023-03-14 20:11 | PC.NURSE ---
small amount of drainage on patients dressing after he got up to use the bathroom. Patient states that he would like to change the dressing after the antibiotics are infused.
[2023-03-15] VITALS (9 sets, daily range): BP systolic 102–132; BP diastolic 51–82; PULSE 57–73; RESP 16–20; TEMP 36.8–37.1; O2SAT 94–98
[2023-03-15] MEDS: ACETAMINOPHEN 500 MG TABLET 1000 MG PO ×4 (01:14→20:20)
[2023-03-15] MEDS: PIPERACILLIN/TAZOBACTAM 3.375 GM in 0.9 % SODIUM CHLORIDE Mini-bag 100 ML IVPB ×4 (02:10→19:53)
[2023-03-15] MEDS: HEPARIN 5,000 UNIT/0.5 ML INJ 5000 UNIT SUBCUT ×2 (04:34→16:20)
--- NOTE | 2023-03-15 08:54 | ED.NURSE ---
patient is eating breakfast and is present in the room. patient is sitting on the edge of the bed eating and vanco is infusing.
--- NOTE | 2023-03-15 09:30 | ED.NURSE ---
patient walked twice around the unit and went to the bathroom. Tolerated the activity well. helped patient freshen up and changed gown and bedding.
[2023-03-15] MEDS: hydroCHLOROthiazide 25 MG TABLET PO (09:40)
[2023-03-15] MEDS: LOSARTAN POTASSIUM 50 MG TABLET 100 MG PO (09:40)
[2023-03-15] MEDS: dilTIAZem 240 MG CAP (CD) PO (09:40)
[2023-03-15] MEDS: LOPERAMIDE HCL 2 MG CAPSULE 4 MG PO (10:00)
[2023-03-15] MEDS: TAMSULOSIN HCL 0.4 MG CAPSULE PO (10:00)
--- NOTE | 2023-03-15 11:59 | ED.NURSE ---
voided 200cc of yellow urine x 2 and ordered some lunch for patient. offered pain medication and declined at this time.
--- NOTE | 2023-03-15 13:43 | ED.NURSE ---
changed the dressing to the back as had some drainage on the lower portion of the dressing. (1/ saturated with serosangious drainage)
== END 2023-03-15 20:21 | disposition short-term general hospital (02) ==
PROVIDERS: Family Medicine; Student in an Organized Health Care Education/Training Program; Emergency Provider Family Medicine; PCP Family Medicine
DX: T81.42XA Infection following a procedure, deep incisional surgical site, initial encounter (principal); M43.27 Fusion of spine, lumbosacral region; A41.9 Sepsis, unspecified organism
CPT/HCPCS: 36415; 71045; 72128; 72129; 72132; 72158; 80048; 80053; 81001; 82565; 83605; 84484; 85025; 85651; 86140; 87040; 87070; 87077; 87186; 87631; 93005; 95992; 96365; 96366; 96375; 99285; A9270; A9575; J1644; J2405; J2543; J3370; J7050; J7120; Q9967

== ENCOUNTER 2023-03-15 20:06 | Outpatient (CLI) | payer MEDICARE, BC, SELFPAY | END 2023-03-15 20:07 | disposition home or self-care (01) | LOC: AMB 03-16 09:57 | PROVIDERS: PCP Family Medicine; Visit Provider Emergency Medicine Emergency Medical Services | DX: T81.42XS Infection following a procedure, deep incisional surgical site, sequela (principal); A41.9 Sepsis, unspecified organism | CPT/HCPCS: A0425; A0427 ==

== ENCOUNTER 2023-03-27 11:11 | Outpatient (REF) | payer MEDICARE, BC, SELFPAY ==
[2023-03-27 11:46] LABS: Basophils Absolute Auto 0.06 K/uL (0.00-0.30); Basophils Percent Auto 0.9 % (0.0-3.0); Hematocrit 39.9 % (37.0-53.0); Hemoglobin* 13.3 gm/dL (13.5-17.5); Immature Granulocytes Abs Auto 0.01 K/uL (0.00-0.30); Immature Granulocytes Pct Auto 0.1 %; Lymphocytes Percent Auto 15.1 % (20-44); Mean Corpuscular HGB Conc 33 gm/dL (32-36); Mean Corpuscular Hemoglobin 30 pg (26-34); Mean Corpuscular Volume 89 fL (80-100); Monocytes Percent Auto 6.8 % (0.0-11.0); Neutrophils Percent Auto 74.1 % (42.0-72.0); Platelet Count* 263 K/uL (140-440); RDW Coefficient of Variation % 12.1 % (11.5-15.5); Red Blood Count 4.47 m/uL (4.30-5.90); Slide Review Reflex No; White Blood Count* 6.76 K/uL (4.50-11.00)
[2023-03-27 12:01] LABS: Albumin* 4.4 g/dL (3.3-5.0); Chloride* 98 mmol/L (96-114)
[2023-03-27 12:02] LABS: Potassium* 3.5 mmol/L (3.6-5.1); Sodium* 137 mmol/L (135-149)
[2023-03-27 12:04] LABS: Alkaline Phosphatase* 57 U/L (40-150); Anion Gap 10 mEq/L (7-15); Aspartate Amino Transferase* 35 U/L (12-35); Bilirubin Total* 0.6 mg/dL (0.1-1.5); Blood Urea Nitrogen* 23 mg/dL (7-30); Carbon Dioxide* 29 mmol/L (20-32); Creatinine* 0.9 mg/dL (0.5-1.5); Estimated Glomerular Filt Rate 91 ml/min
[2023-03-27 12:05] LABS: Alanine Aminotransferase* 36 U/L (4-50); Calcium* 9.4 mg/dL (8.4-10.6); Glucose* 104 mg/dL (60-115)
== END 2023-03-27 11:12 | disposition home or self-care (01) ==
LOC: NPINS 11:11
PROVIDERS: PCP Family Medicine; Visit Provider Family Medicine
DX: I50.9 Heart failure, unspecified (principal)
CPT/HCPCS: 80053; 85025

== ENCOUNTER 2023-04-05 15:30 | Outpatient (REF) | payer MEDICARE, BC, SELFPAY ==
[2023-04-05 15:59] LABS: Hemoglobin* 12.6 gm/dL (13.5-17.5); Lymphocytes Percent Auto 20.6 % (20-44); Mean Corpuscular HGB Conc 33 gm/dL (32-36); Mean Corpuscular Hemoglobin 30 pg (26-34); Mean Corpuscular Volume 91 fL (80-100); Monocytes Percent Auto 10.9 % (0.0-11.0); Neutrophils Percent Auto 61.8 % (42.0-72.0); Platelet Count* 280 K/uL (140-440); RDW Coefficient of Variation % 12.8 % (11.5-15.5); Red Blood Count 4.18 m/uL (4.30-5.90); White Blood Count* 7.13 K/uL (4.50-11.00)
[2023-04-05 16:00] LABS: Basophils Absolute Auto 0.05 K/uL (0.00-0.30); Basophils Percent Auto 0.7 % (0.0-3.0); Eosinophils Absolute Auto 0.37 K/uL (0.00-0.50); Eosinophils Percent Auto 5.2 % (0.0-7.0); Immature Granulocytes Abs Auto 0.06 K/uL (0.00-0.30); Immature Granulocytes Pct Auto 0.8 %; Lymphocytes Absolute Auto 1.47 K/uL (0.90-2.90)
[2023-04-05 16:12] LABS: Albumin* 4.3 g/dL (3.3-5.0); Chloride* 103 mmol/L (96-114); Sodium* 141 mmol/L (135-149)
[2023-04-05 16:13] LABS: Potassium* 3.9 mmol/L (3.6-5.1); Slide Review Reflex No
[2023-04-05 16:15] LABS: Alanine Aminotransferase* 20 U/L (4-50); Alkaline Phosphatase* 66 U/L (40-150); Aspartate Amino Transferase* 25 U/L (12-35); Bilirubin Total* 0.3 mg/dL (0.1-1.5); Blood Urea Nitrogen* 25 mg/dL (7-30); Carbon Dioxide* 28 mmol/L (20-32); Creatinine* 0.8 mg/dL (0.5-1.5); Estimated Glomerular Filt Rate 94 ml/min; Glucose* 76 mg/dL (60-115); Total Protein* 7.9 g/dL (6.0-8.3)
[2023-04-05 16:18] LABS: Anion Gap 10 mEq/L (7-15)
== END 2023-04-05 15:31 | disposition home or self-care (01) ==
LOC: NPINS 15:30
PROVIDERS: PCP Family Medicine; Visit Provider Family Medicine
DX: T81.49XA Infection following a procedure, other surgical site, initial encounter (principal); A41.9 Sepsis, unspecified organism; I48.91 Unspecified atrial fibrillation; Z79.01 Long term (current) use of anticoagulants
CPT/HCPCS: 80053; 85025

== ENCOUNTER 2023-04-12 16:29 | Outpatient (REF) | payer MEDICARE, BC, SELFPAY ==
[2023-04-12 17:43] LABS: Basophils Absolute Auto 0.05 K/uL (0.00-0.30); Basophils Percent Auto 0.7 % (0.0-3.0); Eosinophils Absolute Auto 0.44 K/uL (0.00-0.50); Eosinophils Percent Auto 5.8 % (0.0-7.0); Hematocrit 43.3 % (37.0-53.0); Hemoglobin* 14.4 gm/dL (13.5-17.5); Immature Granulocytes Abs Auto 0.02 K/uL (0.00-0.30); Immature Granulocytes Pct Auto 0.3 %; Lymphocytes Percent Auto 16.3 % (20-44); Mean Corpuscular HGB Conc 33 gm/dL (32-36); Mean Corpuscular Hemoglobin 30 pg (26-34); Mean Corpuscular Volume 90 fL (80-100); Monocytes Percent Auto 10.3 % (0.0-11.0); Neutrophils Absolute Auto 5.02 K/uL (1.7-7.0); Neutrophils Percent Auto 66.6 % (42.0-72.0); Platelet Count* 176 K/uL (140-440); Red Blood Count 4.83 m/uL (4.30-5.90); White Blood Count* 7.54 K/uL (4.50-11.00)
[2023-04-12 18:06] LABS: Slide Review Reflex No
[2023-04-12 18:10] LABS: Albumin* 4.6 g/dL (3.3-5.0); Chloride* 101 mmol/L (96-114); Sodium* 139 mmol/L (135-149)
[2023-04-12 18:11] LABS: Potassium* 4.2 mmol/L (3.6-5.1)
[2023-04-12 18:13] LABS: Alanine Aminotransferase* 47 U/L (4-50); Alkaline Phosphatase* 67 U/L (40-150); Anion Gap 9 mEq/L (7-15); Aspartate Amino Transferase* 47 U/L (12-35); Bilirubin Total* 0.5 mg/dL (0.1-1.5); Carbon Dioxide* 29 mmol/L (20-32); Estimated Glomerular Filt Rate 79 ml/min; Total Protein* 8.1 g/dL (6.0-8.3)
[2023-04-12 18:14] LABS: Blood Urea Nitrogen* 20 mg/dL (7-30); Calcium* 9.3 mg/dL (8.4-10.6); Glucose* 102 mg/dL (60-115)
[2023-04-12 18:16] LABS: C Reactive Protein* 1.5 mg/dL (0.5-1.0)
[2023-04-12 19:01] LABS: Erythrocyte SedimentationRate* 23 mm/hr (2-15)
== END 2023-04-12 16:30 | disposition home or self-care (01) ==
LOC: NPINS 16:29
PROVIDERS: PCP Family Medicine
DX: A41.9 Sepsis, unspecified organism (principal)
CPT/HCPCS: 80053; 85025; 85651; 86140

== ENCOUNTER 2023-04-19 15:46 | Outpatient (REF) | payer MEDICARE, BC, SELFPAY ==
[2023-04-19 18:17] LABS: Basophils Absolute Auto 0.05 K/uL (0.00-0.30); Basophils Percent Auto 0.8 % (0.0-3.0); Eosinophils Absolute Auto 0.39 K/uL (0.00-0.50); Eosinophils Percent Auto 6.5 % (0.0-7.0); Hematocrit 42.8 % (37.0-53.0); Hemoglobin* 14.3 gm/dL (13.5-17.5); Immature Granulocytes Abs Auto 0.04 K/uL (0.00-0.30); Immature Granulocytes Pct Auto 0.7 %; Lymphocytes Percent Auto 19.9 % (20-44); Mean Corpuscular HGB Conc 33 gm/dL (32-36); Mean Corpuscular Hemoglobin 30 pg (26-34); Mean Corpuscular Volume 89 fL (80-100); Monocytes Percent Auto 9.9 % (0.0-11.0); Neutrophils Absolute Auto 3.76 K/uL (1.7-7.0); Neutrophils Percent Auto 62.2 % (42.0-72.0); Platelet Count* 169 K/uL (140-440); Red Blood Count 4.82 m/uL (4.30-5.90); White Blood Count* 6.04 K/uL (4.50-11.00)
[2023-04-19 18:21] LABS: Slide Review Reflex No
[2023-04-19 18:26] LABS: Albumin* 4.6 g/dL (3.3-5.0); Chloride* 101 mmol/L (96-114)
[2023-04-19 18:27] LABS: Potassium* 4.1 mmol/L (3.6-5.1); Sodium* 141 mmol/L (135-149)
[2023-04-19 18:29] LABS: Anion Gap 8 mEq/L (7-15); Aspartate Amino Transferase* 29 U/L (12-35); Bilirubin Total* 0.4 mg/dL (0.1-1.5); Carbon Dioxide* 32 mmol/L (20-32); Creatinine* 0.8 mg/dL (0.5-1.5); Estimated Glomerular Filt Rate 93 ml/min
[2023-04-19 18:30] LABS: Alanine Aminotransferase* 27 U/L (4-50); Alkaline Phosphatase* 64 U/L (40-150); Blood Urea Nitrogen* 22 mg/dL (7-30); Calcium* 9.4 mg/dL (8.4-10.6); Glucose* 100 mg/dL (60-115); Total Protein* 8.2 g/dL (6.0-8.3)
== END 2023-04-19 15:47 | disposition home or self-care (01) ==
LOC: NPINS 15:46
PROVIDERS: PCP Family Medicine; Visit Provider Orthopaedic Surgery Orthopaedic Surgery of the Spine
DX: A41.9 Sepsis, unspecified organism (principal)
CPT/HCPCS: 80053; 85025

== ENCOUNTER 2023-07-24 14:30 | Outpatient (RCR) | payer MEDICARE, BC, SELFPAY | END 2023-09-25 10:33 | disposition home or self-care (01) | PROVIDERS: PCP Family Medicine; Visit Provider Orthopaedic Surgery Orthopaedic Surgery of the Spine | DX: M25.512 Pain in left shoulder (principal); M48.062 Spinal stenosis, lumbar region with neurogenic claudication; Z51.89 Encounter for other specified aftercare; Z48.89 Encounter for other specified surgical aftercare | CPT/HCPCS: 97110; 97140; 97161 ==

== ENCOUNTER 2023-10-27 14:15 | Outpatient (CLI) | payer MEDICARE, BC, SELFPAY | END 2023-10-27 14:16 | disposition home or self-care (01) | LOC: INJ CL 14:15 | PROVIDERS: PCP Family Medicine; Visit Provider Family Medicine | DX: M54.16 Radiculopathy, lumbar region (principal); M51.36 Other intervertebral disc degeneration, lumbar region | CPT/HCPCS: 62323; J0702; Q9966 ==

== ENCOUNTER 2024-01-22 11:15 | Outpatient (RCR) | payer MEDICARE, BC, SELFPAY | END 2024-05-21 23:59 | disposition home or self-care (01) | PROVIDERS: PCP Family Medicine; Visit Provider Orthopaedic Surgery | DX: M48.062 Spinal stenosis, lumbar region with neurogenic claudication (principal); M54.16 Radiculopathy, lumbar region; M25.572 Pain in left ankle and joints of left foot; Z51.89 Encounter for other specified aftercare | CPT/HCPCS: 97110; 97140; 97161 ==

== ENCOUNTER 2024-01-22 14:02 | Outpatient (RCR) | payer MEDICARE, BC, SELFPAY | END 2024-05-03 14:09 | disposition home or self-care (01) | PROVIDERS: PCP Family Medicine; Visit Provider Family Medicine | DX: M48.061 Spinal stenosis, lumbar region without neurogenic claudication (principal); M54.16 Radiculopathy, lumbar region; Z51.89 Encounter for other specified aftercare | CPT/HCPCS: 97110; 97161 ==

== ENCOUNTER 2024-07-11 10:45 | Outpatient (RCR) | payer MEDICARE, BC, SELFPAY | END 2024-10-28 11:16 | disposition home or self-care (01) | PROVIDERS: PCP Family Medicine; Visit Provider Orthopaedic Surgery | DX: Z48.89 Encounter for other specified surgical aftercare (principal); M25.571 Pain in right ankle and joints of right foot; Z51.89 Encounter for other specified aftercare | CPT/HCPCS: 97110; 97140; 97161 ==

== ENCOUNTER 2024-09-05 14:12 | Emergency (ER) | payer MEDICARE, BC, SELFPAY ==
[2024-09-05] VITALS (13 sets, daily range): BP systolic 128–144; BP diastolic 76–97; PULSE 52–79; RESP 6–27; TEMP 36.8; O2SAT 92–97; BMI 35.9
--- OUTSIDE RECORDS SUMMARY | 2024-09-05 14:14 | XMS_ITS ---
Author Organization [facility] Address [address] [place] [address] Care Team Providers Care Gardener Florist Name Role Phone Elsewhere, Pcp Primary Care Provider Unavailabl e Active Problems Problem Noted Date Diagnosed Date Sinusitis Chronic 04/13/2021 Melanoma Lower Limb 03/21/2017 Current Treatment and Therapy Plans No current plan information found. Past Treatment and Therapy Plans No past plan information found. Lifetime Dose Tracking * Chemical Lifetime Dose Automatic Entry Manual Entr y Radiation 280 mGy 280 mGy 0 mGy Fluoro Time 6.57 minutes 6.57 minutes 0 minutes
--- OUTSIDE RECORDS SUMMARY | 2024-09-05 14:14 | XMS_ITS | Clinical Summary ---
Author Organization [facility] Address [address] [place] [id number] Care Team Providers Care Equity Sales Assistant Name Role Phone David Zimmer MD Primary Care Provider Allergies Active Allergy Reactions Criticality Noted Date Comments Celecoxib Rash 08/18/2023 See NOTE 08/18/2023 Sleep note Clarithromycin Rash Medium 09/10/2018 Lisinopril Cough 03/15/2021 Medications calcipotriene 0.005% (DOVONEX) 0.005 % cream Apply sparingly to thick areas of psoriasis on elbows and knees twice daily as needed 03/27/20 18 Active acetaminophen (TYLENOL EXTRA STRGTH) 500 mg tabletIndications :Status post lumbar surgery Take 1-2 Tablets (500-1,000 mg) by mouth every 6 hours if needed for Headache or Pain. Max acetaminophen dose: 4000mg in 24 hrs. 50 Tablet 3 10:40 AM PARK MAINTAINER 03/20/20 23 Active metoprolol tartrate (LOPRESSOR) 25 mg tabletIndications :Paroxysmal atrial fibrillation (HC),S/P ablation of atrial fibrillation Take 1 Tablet (25 mg) by mouth 2 times daily if needed (for afib episodes). 30 Tablet 1 05/11/19 24 Active CPAPIndications:O SA (obstructive sleep apnea) CPAP machine for home use at pressure 12 cmw, CPAP mask- mask of choice, fit to comfort one per 3 months 1 Each 08/18/19 24 Active dilTIAZem (DILACOR XR; DILTIA XT) 240 mg Extended-Release capsuleIndication s:Paroxysmal atrial fibrillation (HC) Take 1 Capsule (240 mg) by mouth once daily. 90 Capsule 3 05/24/19 25 Active apixaban (Eliquis) 5 mg tabletIndications :Paroxysmal atrial fibrillation (HC) Take 1 Tablet (5 mg) by mouth two times daily. Ok to resume with evening dose on Monday 02/26 180 Tablet 3 06/26/19 25 Active triamcinolone 0.1 % creamIndications: Chronic eczema Apply topically to affected area(s) two times daily. 80 g 3 07/26/19 25 Active losartan 100 mg tabletIndications :Benign essential HTN Take 1 Tablet (100 mg) by mouth once daily. 90 Tablet 3 08/14/19 25 Active tamsulosin 0.4 mg capsuleIndication s:BPH with urinary obstruction Take 2 Capsules (0.8 mg) by mouth once daily after a meal. 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 180 Capsule 3 11/10/19 24 025 Discontin ued(Reord er (E-cancel not sent)) traMADoL (ULTRAM) 50 mg tabletIndications :Spinal stenosis, lumbar region, with neurogenic claudication,Lumb ar radiculopathy Take 1 Tablet (50 mg) by mouth 3 times daily if needed for Pain. 24 Tablet 1 11/20/19 24 025 Discontin ued(*Med complete/ Regimen complete/ Level of care change) tamsulosin 0.4 mg capsuleIndication s:BPH with urinary obstruction TAKE 2 CAPSULES(0.8 MG) BY MOUTH EVERY DAY AFTER A MEAL 180 Capsule 2 02/21/20 24 025 Discontin ued(Reord er (E-cancel not sent)) losartan 100 mg tabletIndications :Benign essential HTN 0.5 Tablets (50 mg). 04/17 025 Discontin ued(Reord er (E-cancel not sent)) Active Problems Problem Noted Date Diagnosed Date Status post lumbar surgery 03/07/2023 Spinal stenosis, lumbar suzanne on, with neurogenic claudication 02/23/2023 Recurrent dislocation of right hip 02/23/2023 Ascending aorta dilatation 02/21/2023 BPH without urinary obstruction 01/26/2022 Lumbar radiculopathy 01/26/2022 Depression 01/26/2022 Sinusitis, chronic 04/13/2021 Malignant melanoma of skin of lower extremity Paroxysmal atrial fibrillation 03/08/2016 Overview (05/24/2016): - S/P atrial fibrillation and typical atrial flutter ablation 05/23/2016 FLEX 07/21/2014 AHI-15 11/10/2020 AHI-16 positional 08/04/2014 S/P hip replacement 05/06/2013 Chondromalacia of knee 02/04/2011 Obesity, unspecified 02/03/2010 Unspecified essential hypertension 07/16/2008 Esophageal reflux 07/05/2006 Unspecified viral hepatitis without mention of h epatic coma 05/03/2006 Overview (05/03/2006): unsure of kind.in 1967 Psoriasis 05/03/2006 Overview (02/04/2011): on cyclosporine intermittently, sees Dr. Tubbs Impaired fasting glucose Rectal polyp Overview (11/30/2018): Colonoscopy 10/2013 normal repeat in 5 years Colonoscopy 11/2018 normal long colon, repeat in 5 years with an adult scope Resolved Problems Problem Noted Date Diagnosed Date Resolved Date Streptococcal bacteremia 03/16/202309/2024 Atrial fibrillation, current ly in sinus rhythm 03/29/2016 09/29/2020 Status post total hip replacement, right 03/17/2016 09/29/2020 Anticoagulation monitoring, INR range 2-3 10/15/2015 04/01/2016 Atrial fibrillation, current ly in sinus rhythm 04/21/2015 03/08/2016 Atrial flutter with rapid ve ntricular response 07/02/2014 03/08/2016 Anticoagulation monitoring, INR range 2-3 07/02/2014 09/12/2014 Obesity, unspecified 07/16/2008 021 Knee joint replacement by other means 09/24/2007 09/29/2020 terminal makeup operator (current) use of anticoagulants 09/24/2007 12/29/2008 Other psoriasis 05/03/2006 02/04/2011 Osteoarthrosis, unspecified whether generalized or localized, unspecified site 05/03/2006 09/29/2020 Encounters Date Type Department Care Team Description 09/03/2024 9:30 AM CDT Office Visit [facility] [address] [facility] [address] [place] [address] Katy Lui PA Follow Up 09/03/2024 Travel 08/29/2024 Travel 08/13/2024 10:05 AM CDT Office Visit [facility] [address] [place] [address] David Zimmer MD Medicare ANNUAL (subsequent) Visit (74 year old) 08/12/2024 Travel 07/25/2024 11:00 AM CDT Office Visit [facility] [address] [place] [address] David Zimmer MD Dizziness (Lightheadedness, started about 6 months ago); Derm Problem (Bilateral arm, across chest, little bumps, itchy, started about 2 weeks ago) 07/25/2024 Travel 06/25/[address] [facility] [address] [facility] [address] [place] [address] Anderson Brunson MD Refill Request 06/21/2024 Nurse Triage [facility] [address] [place] [address] David Zimmer MD Skin Problem 06/17/2024 Orders Only [facility] Scanner 1 scan: (1-Ord) [facility], RT TIBIOTALAR JOINT INJ, 06/17/2024 from Last 3 Months Immunizations Immunization Administration Dates Next Due COVID-19 VACCINE SPIKEVAX (M ODERNA 50MCG/0.5ML) 12YO+ PFS 08/13/2024 COVID-19 vaccine (Moderna 100mcg/0.5mL) PF, MDV 10/29/2021,01/29/2021 COVID-19 vaccine (Moderna 50 mcg/0.5mL) 12YO+ BIVALENT PF, MDV 03/16/2022 Influenza A (H1N1), Inactivated 04/14/2009 Influenza A (H1N1), Inactiva paxton (Age >=3 Years) 04/14/2009 Influenza, High-dose Inactivated 01/30/2024,12/10 Influenza, High-dose Quadriv alent Inactivated 01/17/2023 Influenza, IIV3 (Age 6-35 mos) 02/04/2011 Influenza, IIV3 (Age >=3 years) 12/21/19 13,01/23/2012,02/04/2011,12/29 Influenza, IIV4 12/20/2012 Influenza, Inactivated AIIV4 (Age 65+ Years) Preserv Free 01/26/2022,01/25/2021 Influenza, Inactivated IIV3 (Age 65+ Years) Preserv Free 02/15/2019,01/08/2018,02/08/2017 Pneumococcal Conj 20-valent (Prevnar 20) 08/13/2024 Pneumococcal Poly,23-Valent (Pneumovax) 02/08/2017 Pneumococcal conj 13-Valent (Prevnar 13) 08/28/2015 RSV, Recombinant ADJ Reconst ituted (Arexvy 120MCG/0.5mL) 02/08/2023 Rabavert 01/08/2018,12/21/2017 Rabies Vaccine 12/28/2017,12/24/2017 Td (Age >=7 Years) 07/12/2005,08/28/1995 Td, Preservative Free (age >= 7 Years) 6 Tdap 08/29/2022,09/30/2013 Zoster (Shingrix-RZV, recombinant) 02/07/2019, Zoster (Zostavax-ZVL, live) 08/28/2015 Family History Medical History Relation Name Comments Diabetes Brother 3 Alcohol/Drug Brother 4 #2 Diabetes Father Stroke Father at 72 Cancer Maternal Grandfather Heart Disease Maternal Grandfather Arthritis Maternal Grandmother Arthritis Mother Hypertension Mother Psychiatric illness Mother dementia . at 94 Stroke Paternal Grandfather Heart Disease Paternal Grandmother Alcohol/Drug Son 5 alcohol related liver failure Anesthesia Problem No Family History Relation Name Status Comments Brother 1 Alive Brother 2 Alive Brother 3 Brother 4 #2 Father Maternal Grandfather Maternal Grandmother Mother Alive Paternal Grandfather Paternal Grandmother Sister 1 Alive Sister 2 Alive Son 1 Son 2 Alive Son 3 Alive Son 4 Alive Son 5 Social History Tobacco Use Types Packs/Day Years Used Date Smoking Tobacco: Former Cigarettes 0.5 15 0 05/03/1971 - 05/03/1986 Smokeless Tobacco: Never Tobacco Cessation:Counseling Given: No Alcohol Use Standard Drinks/Week Comments Yes 2 (1 standard drink = 0.6 oz pure alcohol) 2 - 4 Standard drinks or equivalent per week PHQ-2 Answer Date Recorded PHQ-2 TOTAL SCORE 0 08/13/2024 Social Connections Answer Date Recorded Do you often feel lonely or isolated from those around you? 0 07/25/2024 Financial Resource Strain Answer Date R ecorded Difficulty of Paying Living Expenses 3 07/25/2024 Difficulty of Paying Living Expenses Not on file 07/25/2024 Food Insecurity Answer Date Recorded Do you worry your food will run out before you are able to buy more? 1 07/25/2024 Transportation Needs Answer Date Record ed Does lack of transportation keep you from medica l appointments? 1 07/25/2024 Does lack of transportation keep you from work, meetings or getting things that you need? 1 07/25/2024 Housing Stability Answer Date Recorded What is your housing situation today? 1 07/25/2024 Utilities Answer Date Recorded Do you have trouble paying f or utilities (for example, heat, electricity, water, phone)? 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 Gender Identity Not on file Sexual Orientation Not on file Occupation Industry Job Start Date Job End Date Not on file Not on file Not on file Not on file Obstetrics History Last Filed Vital Signs Vital Sign Reading Time Taken Comments Blood Pressure 130/74 09/03/2024 9:51 AM CDT Pulse 66 09/03/2024 9:51 AM CDT Temperature 36.4 C (97.5 F) 12/21/2023 7:35 AM CDT Respiratory Rate 18 09/03/2024 9:51 AM CDT Oxygen Saturation 98% 09/03/2024 9:51 AM CDT Inhaled Oxygen Concentration - - Weight 119.3 kg (262 lb 14.4 oz) 09/03/2024 9:51 AM CDT Height 181.1 cm (5' 11.3) 08/13/2024 1 0:03 AM CDT Body Mass Index 36.36 08/13/2024 10:03 AM CDT Plan of Treatment Upcoming Encounters Date Type Department Care Team (Late st Contact Info) Description 09/11/2024 1:15 PM CDT Office Visit [facility] [address] [place] [address] David Zimmer MD [address] [place] [address] 10/28/2024 10:00 AM CDT Office Visit [facility] [address] [place] [address] Farhad Theodore MD [address] [place] [address] Scheduled Procedures Name Priority Associated Diagnoses Date/Ti me SURGICAL PROCEDURE (TYPE PROCEDURE DESCRIPTION BELOW) Encounter for screening colonoscopy Health Maintenance Due Date Last Done Comments BMI (ht and wt on same day) for age 18+ 08/13/2025 08/13/2024, 02/06/2024, 12/21/2023, Additional history exists Depression screening for age 12+ 08/13/2025 08/13/2024, 02/24/2023, 02/21/2023, Additional history exists Medicare Wellness for age 65+ 08/14/2025 08/13/2024, 02/21/2023, 04/17/2020 Colonoscopy through age 75 01/08/202901/08 ([facility] 11/30/2018, 11/30/2018, Additional history exists Lipids for age 45-75 08/13/2029 08/13/2024, 03/08/2021, 03/04/2020, Additional history exists Tetanus booster 08/29/2032 08/29/2022, 09/09, 07/12/2005, Additional history exists AAA screening age 65-74 Completed 04/21/2017 Zoster (shingles) series for age 50+ Completed 02/07/2019, 11/23/2018, 08/28/2015 Hepatitis C screening for age 18-79 Completed 03/31/2021 Tdap Completed 08/29/2022, 09/30/2013 RSV vaccine for adults or Completed 02/08/2023 Influenza Vaccine Completed 01/30/2024, , 01/25/2021, Additional history exists COVID-19 vaccine series Completed 08/14/19, 01/30/2024, 01/17/2023, Additional history exists Pneumococcal series for age 50+ Completed 08/13/2024, 02/08/2017, 08/28/2015 Hepatitis B series for 19+ Aged Out N o longer eligible based on patient's age to complete this topic Medical Devices Implanted Type Area Senior Support Analyst Device Identifier Shelf Expiration Date Model / Serial / Lot Stent Sinus 8mm Propel Contour Bioabsorb - [id number] Implanted:Qty: 1 on 10/01/2018 by Tomás Valdez MD at [facility] Left: Maxilla Intersect [employer] One sinus implant 08/10/2019 [id number]# / / [id number] Description:Propel Contour One sinus implant Mometason Furoate Implant 370 micrograms Stent Sinus 8mm Propel Contour Bioabsorb - [id number] Implanted:Qty: 1 on 10/01/2018 by Tomás Valdez MD at [facility] Right: Maxilla [employer] One Sinus Implant 12/13/2019 [id number]# / / [id number] Description:Propel Contour Mometasone Furoate Implant, 370 micrograms Stent Ent Reg Steroid-Releasing Propel Bioabsorb - [id number] Implanted:Qty: 1 on 10/01/2018 by Tomás Valdez MD at [facility] Right: Maxilla [employer] One Sinus Implant 09/29/2019 [id number]# / / [id number] Description:Propel One sinus implant, (nominal length: 23mm) Stent Ent Reg Steroid-Releasing Propel Bioabsorb - [id number] Implanted:Qty: 1 on 10/01/2018 by Tomás Valdez MD at [facility] Left: Maxilla Intersect [employer] one sinus implant 09/29/2019 [id number]# / / [id number] Description:Propel Mometasone Furoate Implant, 370micrograms One Sinus Implant (nominal length) Izaiah 5.5x45mm [place] Precountoured - [id number] Implanted:Qty: 2 on 02/23/2023 by Issac Vigil MD at [facility] Spine SeaSpine [id number] / / Bone 1-4mm 60cc Medtronic Fine Canclls Freeze Dried - [id number] Implanted:Qty: 1 on 02/23/20[facility] 01/06/2027 [id number] / [id number] / Set Screw Pointlock Mariner - [id number] Implanted:Qty: 4 on 02/23/2023 by Issac Vigil MD at [facility] [id number] / / Screw Bone Polyaxial Mariner - [id number] Implanted:Qty: 4 on 02/23/2023 by Issac Vigil MD at [facility] [id number] / / Screw 6.5x55mm Solid Mariner - [id number] Implanted:Qty: 2 on 02/23/2023 by Issac Vigil MD at [facility] [id number] / / Screw 6.5x50mm Solid Mariner - [id number] Implanted:Qty: 2 on 02/23/2023 by Issac Vigil MD at [facility] Spine [facility] [id number] / / Putty Easypack 5cc Magnetos - [id number] Implanted:Qty: 1 on 03/18/2023 by Issac Vigil MD at [facility] N/A: Spine Direct Spinal Therapeuticsos [employer] Inc 12/10/2027 [id number] / / [id number] Bone 1-4mm 30cc Medtronic Chips Canclls Freeze Dried - [id number] Implanted:Qty: 1 on 03/18/2023 by Issac Vigil MD at [facility] N/A: Spine Medtronic Spine/Ortho 01/26/2027 [id number] / [id number] / [id number] 1-4mm 30cc Medtronic Chips Canclls Freeze Dried - [id number] Implanted:Qty: 1 on 03/18/2023 by Issac Vigil MD at [facility] N/A: Spine Medtronic Spine/Ortho 01/25/2027 [id number] / [id number] / Procedures Procedure Name Priority Date/Time Associated Diagnosis Comments AST (SGOT) Routine 08/13/2024 11:24 AM CDT Paroxysmal atrial fibrillation (HC) Therapeutic drug monitoring ALT (SGPT) Routine 08/13/2024 11:24 AM CDT Paroxysmal atrial fibrillation (HC) Therapeutic drug monitoring LIPID PANEL W REFLEX MEASURED LDL Routine 08/13/2024 11:21 AM CDT Dyslipidemia HEMOGLOBIN A1C Routine 08/13/2024 11:21 AM CDT Impaired fasting glucose CBC WITH AUTO DIFFERENTIAL Routine 08/13/2024 11:21 AM CDT High risk medication use BASIC METABOLIC PANEL Routine 08/13/2024 11:21 AM CDT Benign essential HTN PSA TOTAL Routine 08/13/2024 11:21 AM CDT Prostate cancer screening SCAN-OPERATIVE/PROCED URE REPORT 06/17/2024 12:00 AM CDT ANTI HCV Routine 03/31/2021 8:52 AM PARK MAINTAINER Need for hepatitis C screening test COLONOSCOPY 11/30/2018 12:[address] ABDOMEN PELVIS W Routine 04/21/2017 9 :03 AM PARK MAINTAINER Abdominal pain, RLQ (right lower quadrant) from Last 3 Months or Most Recently Relevant to Health Maintenance Results * ALT (SGPT) (08/13/2024 11:24 AM CDT) ALT 21 9 - 46 U/L [facility] Blood BLOOD SPECIMEN / Unknown 08/13/2024 11:24 AM CDT 08/13/2024 11:24 AM CDT Anderson Brunson MD CHEMISTRY Final Resul t Performing Organization Address City/[facility]/ZIP Co de Phone Number [employer] [address] [address], [place] [phone] [facility] [address] [place] [phone] * AST (SGOT) (08/13/2024 11:24 AM CDT) AST 27 10 - 35 U/L [facility] Blood BLOOD SPECIMEN / Unknown 08/13/2024 11:24 AM CDT 08/13/2024 11:24 AM CDT Anderson Brunson MD CHEMISTRY Final Resul t Performing Organization Address City/[facility] Co de Phone Number [employer] [address] [address], [facility] [place] [address] * HEMOGLOBIN A1C (08/13/2024 11:21 AM CDT) HEMOGLOBIN A1C 5.2 <5.7 % [facility] Comment: For the purpose of screening for the presence of diabetes: <5.7% Consistent with the absence of diabetes 5.7-6.4% Consistent with increased risk for diabetes (prediabetes) > or =6.5% Consistent with diabetes This assay result is consistent with a decreased risk of diabetes. Currently, no consensus exists regarding use of hemoglobin A1c for diagnosis of diabetes in children. According to [place] Diabetes Association (ADA) guidelines, hemoglobin A1c <7.0% represents optimal control in non- diabetic patients. Different metrics may apply to specific patient populations. Standards of Medical Care in Diabetes(ADA). Blood BLOOD SPECIMEN / Unknown 08/13/2024 11:21 AM CDT 08/13/2024 11:22 AM CDT David Zimmer MD CHEMISTRY Final Result [employer] [facility] [address] [place] [address], [facility] [address] [place] [address] * LIPID PANEL W REFLEX MEASURED LDL (08/13/2024 11:21 AM CDT) [facility] CHOLESTEROL, TOTAL 160 <200 mg/dL [facility] HDL CHOLESTEROL 62 > OR = 40 mg/dL [facility] TRIGLYCERIDES 67 <150 mg/dL [facility] LDL-CHOLESTEROL 84 mg/dL (calc) [facility] Comment: Reference range: <100 Desirable range <100 mg/dL for primary prevention; <70 mg/dL for patients with CHD or diabetic patients with > or = 2 CHD risk factors. LDL-C is now calculated using the Gonzales-Camden calculation, which is a validated novel method providing better accuracy than the Friedewald equation in the estimation of LDL-C. Gonzales SS et al. SHELDON. 2013;310(19): 8590-9410 (http://education.DigitalPost Interactive.Fitfu/faq/BWT443) CHOL/HDLC RATIO 2.6 <5.0 (calc) [facility] NON HDL CHOLESTEROL 98 <130 mg/dL (calc) [facility] Comment: For patients with diabetes plus 1 major ASCVD risk factor, treating to a non-HDL-C goal of <100 mg/dL (LDL-C of <70 mg/dL) is considered a therapeutic option. Blood BLOOD SPECIMEN / Unknown 08/13/2024 11:21 AM CDT 08/13/2024 11:22 AM CDT David Zimmer MD CHEMISTRY Final Result [facility] [address] [place] [address], [facility] [address] [place] [address] * (ABNORMAL) CBC AND DIFFERENTIAL (08/13/2024 11:21 AM CDT) [facility] WHITE BLOOD CELL COUNT 6.4 3.8 - 10.8 Thousand/u L [facility] RED BLOOD CELL COUNT 4.61 4.20 - 5.80 Million/uL [facility] HEMOGLOBIN 14.5 13.2 - 17.1 g/dL [facility] HEMATOCRIT 43.5 38.5 - 50.0 % [facility] MCV 94.4 80.0 - 100.0 fL [facility] MCH 31.5 27.0 - 33.0 pg [facility] MCHC 33.3 32.0 - 36.0 g/dL [facility] Comment: For adults, a slight decrease in the calculated MCHC value (in the range of 30 to 32 g/dL) is most likely not clinically significant; however, it should be interpreted with caution in correlation with other red cell parameters and the patient's clinical condition. RDW 13.4 11.0 - 15.0 % [facility] PLATELET COUNT 137(L) 140 - 400 Thousand/u L [facility] MPV 10.6 7.5 - 12.5 fL [facility] ABSOLUTE NEUTROPHILS 4,870 1,500 - 7,800 cells/uL [facility] ABSOLUTE LYMPHOCYTES 762(L) 850 - 3,900 cells/uL [facility] ABSOLUTE MONOCYTES 653 200 - 950 cells/uL [facility] ABSOLUTE EOSINOPHILS 83 15 - 500 cells/uL [facility] ABSOLUTE BASOPHILS 32 0 - 200 cells/uL [facility] NEUTROPHILS 76.1 % [facility] LYMPHOCYTES 11.9 % [facility] MONOCYTES 10.2 % [facility] EOSINOPHILS 1.3 % [facility] BASOPHILS 0.5 % [facility] Blood BLOOD SPECIMEN / Unknown 08/13/2024 11:21 AM CDT 08/13/2024 11:22 AM CDT us David Zimmer MD HEMATOLOGY Final Result [facility] [address] [place] [address], [place] [phone] [facility] [address] [place] [address] * (ABNORMAL) PSA TOTAL (08/13/2024 11:21 AM CDT) PSA, TOTAL 5.26(H) < OR = 4.00 ng/mL [facility] Comment: The total PSA value from this assay system is standardized against the WHO standard. The test result will be approximately 20% lower when compared to the equimolar-standardized total PSA (Dustin Steve). Comparison of serial PSA results should be interpreted with this fact in mind. This test was performed using the Siemens chemiluminescent method. Values obtained from different assay methods cannot be used interchangeably. PSA levels, regardless of value, should not be interpreted as absolute evidence of the presence or absence of disease. Blood BLOOD SPECIMEN / Unknown 08/13/2024 11:21 AM CDT 08/13/2024 11:22 AM CDT us David Zimmer MD CHEMISTRY Final Result Performing Organization Address [facility]/ZIP Co de Phone Number [facility] [address] [place] [address], [place] [phone] [facility] [address] [facility] [place] [address] * BASIC METABOLIC PANEL (08/13/2024 11:21 AM CDT) Pathologist [facility] GLUCOSE 88 65 - 99 mg/dL [facility] Comment: Fasting reference interval UREA NITROGEN (BUN) 22 7 - 25 mg/dL [facility] CREATININE 0.79 0.70 - 1.28 mg/dL [facility] EGFR 93 > OR = 60 mL/min/1. 73m2 [facility] BUN/CREATININE RATIO SEE NOTE: 6 - 22 (calc) [facility] Comment: Not Reported: BUN and Creatinine are within reference range. SODIUM 138 135 - 146 mmol/L [facility] POTASSIUM 3.6 3.5 - 5.3 mmol/L [facility] CHLORIDE 102 98 - 110 mmol/L [facility] CARBON DIOXIDE 29 20 - 32 mmol/L [facility] ELECTROLYTE BALANCE 7 7 - 17 mmol/L (calc) [facility] CALCIUM 9.0 8.6 - 10.3 mg/dL [facility] Blood BLOOD SPECIMEN / Unknown 08/13/2024 11:21 AM CDT 08/13/2024 11:22 AM CDT David Zimmer MD CHEMISTRY Final Result [employer] [facility] [address] [place] [address], [facility] [address] [place] [address] * SCAN-OPERATIVE/PROCEDURE REPORT (06/17/2024 12:00 AM CDT) us Scanner OTHER Final Result * ANTI HCV (03/31/2021 8:52 AM PARK MAINTAINER) Pathologist [facility] HEPATITIS C ANTIBODY Non-React nasrin Non-React nasrin 03/31/2021 5:09 PM PARK MAINTAINER [facility] Comment:Antibodies to HCV no t detected; does not exclude the possibility of exposure to HCV. Blood BLOOD SPECIMEN / Unknown Venipuncture / Unknown 03/31/2021 8:52 AM PARK MAINTAINER 03/31/2021 8:53 AM PARK MAINTAINER David Zimmer MD SEND OUTS Final Result [facility] [facility] [address] [place] [address], [place] * COLONOSCOPY (11/30/2018 12:14 PM CDT) 11/30/2018 12:1 4 PM CDT Narrative Transcriptions Gonzales Reagan MD - 11/30/2018 12:47 PM CDT Patient Name: Octavio Rasheed Procedure Date: 11/30/2018 Gender: Male Date of : 1950 Admit Type: Outpatient Procedure: Colonoscopy Proceduralist: Gonzales Reagan MD , Reba Chavez RN(Nurse) Indications/Pre-Op Diagnosis: Surveillance: Personal history ofadenomatous polyps on last colonoscopy 5 years ago, Last colonoscopy: October 2013 Medications: Fentanyl 100 micrograms IV, Midazolam 2 mgIV, The level of sedation administered wasmoderate Procedure Description: The patient had risks, benefits and alternatives explained to andgave informed consent. The patient had a stable cardiopulmonary status and judged an adequate candidate for conscious sedation. The [id number] was passed through the anus and advanced tothe cecum, identified by appendiceal orifice and ileocecal valve. The colonoscopy was performed without difficulty. The patient toleratedthe procedure well. The quality of the bowel preparation was good. The ileocecal valve, appendiceal orifice, and rectum were photographed. Complications: No immediate complications. Estimated Blood Loss & Specimen: Estimated blood loss: none. Specimen collected - None Findings: The perianal and digital rectal examinations were normal. The colon (entire examined portion) was moderately redundant. The exam was otherwise without abnormality on direct and retroflexion views. Impressions/Post-Op Diagnosis: - Redundant colon. - The examination was otherwise normal on direct and retroflexionviews. - No specimens collected. Recommendation: - Patient has a contact number available for emergencies. The signsand symptoms of potential delayed complications were discussed with the patient. Return to normal activities tomorrow. Written discharge instructions were provided to the patient. - Resume previous diet. - Continue present medications. - Repeat colonoscopy in 5 years for surveillance with an adultscope. Moderate Sedation: Moderate (conscious) sedation was administered by the endoscopy nurse and supervised by the endoscopist. The following parameters were monitored: oxygen saturation, heart rate, respiratory rate, blood pressure, adequacy of pulmonary ventilation and reponse to care. [facility] flow[facility] and nursing notes for moderate sedation details. Total physician intraservice time was 18 minutes. Gonzales Reagan MD 11/30/2018 12:47:38 PM This report has been signed electronically. Note Initiated On: 11/30/2018 12:14 PM Procedure Code(s): --- Professional --- 56454, Colonoscopy, flexible; diagnostic, including collection of specimen(s) bybrushing or washing, when performed (separateprocedure) Diagnosis Code(s): --- Professional --- Z86.010, Personal history of colonicpolyps Q43.8, Other specified congenitalmalformations of intestine CPT copyright 2018 [employer]. All rights reserved. The codes documented in this report are preliminary and upon disaster recovery coordinator reviewmay be revised to meet current compliance requirements. Scope In: 12:27:31 PM Scope Withdrawal Time 0 hours 6 minutes 26 seconds Scope Out: 12:43:46 PM us Gonzales Reagan MD PROCEDURE ORD Final Res ult * CT ABDOMEN PELVIS W (04/21/2017 9:03 AM PARK MAINTAINER) Anatomical Region Laterality Modality Abdomen, Pelvis, AORTA, LIVER, SPLEEN Computed Tomography 04/21/2017 9:24 AM PARK MAINTAINER Narrative 04/21/2017 9:24 AM PARK MAINTAINER INDICATION: 2-week history of lower abdominal pain. Prior inguinal hernia repair. History of skin melanoma. TECHNIQUE: Contrast-enhanced helical CT of the abdomen and pelvis with the administration of oral and uneventful intravenous administration 100 cc of Omnipaque-350. Sagittal and coronal reformats generated. Please note that all CT scans at this facility use dose modulation, iterative reconstruction and/or weight-based dosing when appropriate to reduce radiation dose to as low as reasonably achievable. FINDINGS: The scattered areas of subsegmental atelectasis at both lung bases. No pleural or pericardial effusions at the level of the lower lung zones. No masses seen within the liver with a calcification along the posterior subcapsular liver. Diffuse decreased attenuation liver consistent with fatty infiltration. No masses identified within the spleen, pancreas or adrenal glands. The nephrograms are symmetrical. 3.6 cm left renal cyst. The abdominal aorta is normal in caliber. No calcified gallstones are seen. Stool scattered throughout the colon may be indicative of constipation. The mild colonic diverticulosis without evidence of diverticulitis. The bilateral hip arthroplasties result in considerable pelvis image degradation. The partially visualized bladder demonstrates no masses. Coarse central prostate calcification. By size criteria, no significantly enlarged lymph nodes are appreciated. Fat containing umbilical hernia is present. Multilevel spondylosis of the thoracic and lumbar spine with grade 1-2 anterolisthesis of L4 over L5 and grade 1 retrolisthesis L5 over S1. IMPRESSION: 1. Colonic diverticulosis without evidence of diverticulitis. 2. Stool-filled colon may indicate constipation. 3. Fatty infiltration the liver. 4. Left renal cyst. 5. Fat containing umbilical hernia. Please note that all CT scans at this facility use dose modulation, iterative reconstruction, and/or weight-based dosing when appropriate to reduce radiation dose to as low as reasonably achievable. Dictated by Guicho Kat DO @ Apr 21 2017 9:24AM (Electronically Signed) Procedure Note Guicho Katory Colby, - 04/21/2017 INDICATION: 2-week history of lower abdominal pain. Prior inguinal hernia repair.History of skin melanoma. TECHNIQUE: Contrast-enhanced helical CT of the abdomen and pelvis with theadministration of oral and uneventful intravenous administration 100 cc ofOmnipaque-350. Sagittal and coronal reformats generated. Please note that all CT scans at this facility use dose modulation,iterative reconstruction and/or weight-based dosing when appropriate toreduce radiation dose to as low as reasonably achievable. FINDINGS: The scattered areas of subsegmental atelectasis at both lung bases. Nopleural or pericardial effusions at the level of the lower lung zones. Nomasses seen within the liver with a calcification along the posteriorsubcapsular liver. Diffuse decreased attenuation liver consistent withfatty infiltration. No masses identified within the spleen, pancreas oradrenal glands. The nephrograms are symmetrical. 3.6 cm left renal cyst.The abdominal aorta is normal in caliber. No calcified gallstones areseen. Stool scattered throughout the colon may be indicative ofconstipation. The mild colonic diverticulosis without evidence ofdiverticulitis. The bilateral hip arthroplasties result in considerablepelvis image degradation. The partially visualized bladder demonstrates nomasses. Coarse central prostate calcification. By size criteria, nosignificantly enlarged lymph nodes are appreciated. Fat containingumbilical hernia is present. Multilevel spondylosis of the thoracic andlumbar spine with grade 1- 2 anterolisthesis of L4 over L5 and grade 1retrolisthesis L5 over S1. IMPRESSION: 1. Colonic diverticulosis without evidence of diverticulitis. 2. Stool-filled colon may indicate constipation. 3. Fatty infiltration the liver. 4. Left renal cyst. 5. Fat containing umbilical hernia. Please note that all CT scans at this facility use dose modulation,iterative reconstruction, and/or weight-based dosing when appropriate toreduce radiation dose to as low as reasonably achievable. Dictated by Guicho Kat DO @ Apr 21 2017 9:24AM (Electronically Signed) Aden Weber MD CT Final Resu lt from Last 3 Months or Most Recently Relevant to Health Maintenance Insurance MEDICARE [facility] ONLY [facility] MEDICARE PART B HB ONLY MEDICARE PART A HB ONLY MEDICARE PROVIDER BASED [facility] Advance Directives Documents on File Type Date Recorded Patient Portfolio Director Expl anation POLST 03/28/2023 03/28/2023 * Full Code (Latest Code Status on File) Date Activated Date Inactivated Comments 03/15/2023 9:17 PM 03/21/2023 1:44 PM Question Answer Comments Code Status Discussion: Unable to Assess Preferences, Provider to review later * Full Code Date Activated Date Inactivated Comments 03/15/2023 9:17 PM 03/15/2023 9:17 PM Question Answer Comments Code Status Discussion: Reviewed Prefere ncesUnable to Assess Preferences, Provider to review later * Full Code Date Activated Date Inactivated Comments 02/23/2023 4:37 PM 02/24/2023 6:56 PM Question Answer Comments Code Status Discussion: Per Existing Order * Full Code Date Activated Date Inactivated Comments 02/23/2023 10:36 AM 02/23/2023 4:37 PM Question Answer Comments Code Status Discussion: OtherReviewed Preference s * Full Code Date Activated Date Inactivated Comments 02/23/2023 10:17 AM 02/23/2023 10:35 AM Question Answer Comments Code Status Discussion: Reviewed Preferences Care Teams Equity Sales Assistant Relationship Specialty Start Date End Date David Zimmer MD [address] [place] [address] PCP - General Family Practice 12/02/20
--- OUTSIDE RECORDS SUMMARY | 2024-09-05 14:14 | XMS_ITS | Clinical Summary ---
Author Organization [facility] Address [address] [place] [address] Care Team Providers Care Forms Examiner Name Role Phone Elsewhere, Pcp Primary Care Provider Unavailabl e Source Comments Patient records contain information from all sites at [facility]. For routine questions regarding patient records, call [phone] during business hours, M-F 8:00 AM - 5:00 PM Central Time. Record requests for emergency care only can be directed to [phone] at any time.[facility] Allergies Active Allergy Reactions Criticality Noted Date Comments Celecoxib Rash 11/06/2023 Clarithromycin Rash Medium 09/10/2018 Medications hydrocortisone probutate 0.1 % cream Apply topically as needed. Active apixaban (ELIQUIS) 5 mg tablet Take 5 mg by mouth 2 (two) times a day. 0 Active metoprolol tartrate (LOPRESSOR) 25 mg tablet Take 25 mg by mouth as needed. 0 Active dilTIAZem CD (CARDIZEM CD/CARTIA XT) 240 mg 24 hr capsule Take 240 mg by mouth daily. Takes 1 capsule daily 0 Active mometasone 0.033 %-ipratropium 0.02 %-diphenhydrami ne 0.033 % nasal spray Administer 2 sprays into each nostril 2 (two) times a day. Shake very well prior to each use. 84 mL 3 1 Active Additional Information Patient taking differently:2 spray each nostrilAs needed, Shake very well prior to each use., Informant: Self, Reported on 05/28/2024 NaCl 0.9 % irrigation 1 Active losartan (COZAAR) 100 mg tablet Take 100 mg by mouth daily. 1 Active hydroCHLOROthia zide (HYDRODIURIL) 25 mg tablet Take 25 mg by mouth daily. 1 Active UNABLE TO FIND Apply topically 2 (two) times a day. Mometasone 0.6mg Nasal Rinse capsules. Empty one capsule into 8 oz saline rinse bottle and irrigate each side of nose twice daily. [address] Layne Nguyen, prescription filled by [facility] Active tamsulosin (FLOMAX) 0.4 mg 24 hr capsule Take 0.4 mg by mouth daily. 2 Active mometasone 0.033 %-ipratropium 0.02 %-diphenhydrami ne 0.033 % nasal spray Administer 2 sprays into each nostril 2 (two) times a day. Shake very well prior to each use. 84 mL 3 06/20/2023 6:17 PM CDT 4 Active triamcinolone (KENALOG) 0.1 % cream APPLY TO INVOLVED AREAS OF PSORIASAS ON BODY TWICE DAILY FOR 2 WEEKS AT A TIME AND THEN STOP FOR 1 WEEK. 80 g 2 01/10/2024 8:59 AM CDT 4 Active calcipotriene (Dovonex) 0.005 % cream Apply sparingly to thick areas of psoriasis on elbows once daily Monday through . 60 g 1 01/10/2024 5:50 PM CDT 4 Active amoxicillin (AmoxiL) 250 mg capsule Take 250 mg by mouth 2 (two) times a day. Active ketoconazole (Nizoral) 2 % cream Apply to rash involving central face 2-3 times per week as needed 30 g 2 05/31/2024 9:45 AM NEURODIAGNOSTIC TECHNOLOGIST 5 Active Active Problems Problem Noted Date Diagnosed Date Sinusitis Chronic 04/13/2021 Melanoma Lower Limb 03/21/2017 Family History Medical History Relation Name Comments Stroke Father kevin setterstrom Coronary artery disease Maternal Grandfather elhamjaclyn napier michael Arthritis Mother ele setterstrom Dementia Mother ele setterstrom Hypertension Mother ele setterstrom Relation Name Status Comments Father kevin manuel Maternal Grandfather elham michaels Mother ele gonsaleserstrashlee Social History Tobacco Use Types Packs/Day Years Used Date Smoking Tobacco: Former Cigarettes Q uit: 1985 Smokeless Tobacco: Never Tobacco Cessation:Counseling Given: Not Answered Alcohol Use Standard Drinks/Week Comments Yes 4 (1 standard drink = 0.6 oz pur e alcohol) varies [facility] Utilities Answer Date Recorded In the past 12 months has e Location Labs, gBox, oil, or water Trapster threatened to shut off services in your home? No 11/03/2023 Humiliation, Afraid, Rape, and Kick questionnair e Answer Date Recorded Within the last year, have y ou been afraid of your partner or ex-partner? No 12/24/2021 Within the last year, have y ou been humiliated or emotionally abused in other ways by your partner or ex-partner? No Within the last year, have y ou been kicked, hit, slapped, or otherwise physically hurt by your partner or ex-partner? No 12/24/2021 Within the last year, have y ou been raped or forced to have any kind of sexual activity by your partner or ex-partner? No 12/24/2021 Social Connection and Isolat ion Panel [NHANES] Answer Date Recorded In a typical week, how many times do you talk on the phone with family, friends, or neighbors? More than three times a week 07/18/2022 How often do you get togethe r with friends or relatives? Once a week 07/18/2022 How often do you attend chur or worship services? More than 4 times per year 07/18/2022 Do you belong to any clubs o r organizations such as scientology groups, unions, fraternal or athletic groups, or school groups? No 07/18/2022 How often do you attend meet ings of the clubs or organizations you belong to? 1 to 4 times per year 07/18/2022 Are you , , di vorced, , never , or living with a partner? 07/18/2022 AUDIT-C Answer Date Recorded Q1: How often do you have a drink containing alc ohol? 2-4 times a month 07/18/2022 Q2: How many drinks containi ng alcohol do you have on a typical day when you are drinking? 1 or 2 07/18/2022 Q3: How often do you have si x or more drinks on one occasion? Never 07/18/2022 Overall Financial Resource Strain (CARDIA) Answe r Date Recorded How hard is it for you to pa y for the very basics like food, housing, medical care, and heating? Not hard at all 12/24/2021 [facility] - Occupational Stress Questionnaire Answer Date Recorded Do you feel stress - tense, restless, nervous, or anxious, or unable to sleep at night because your mind is troubled all the time - these days? Only a little 12/24/2021 Exercise Vital Sign Answer Date Recorde d On average, how many days pe r week do you engage in moderate to strenuous exercise (like a brisk walk)? 4 days 11/03/2023 On average, how many minutes do you engage in exercise at this level? 40 min 11/03/2023 Hunger Vital Sign Answer Date Recorded Within the past 12 months, y ou worried that your food would run out before you got the money to buy more. Never true 11/03/19 24 Within the past 12 months, t he food you bought just didn't last and you didn't have money to get more. Never true 11/03/2023 PRAPARE - Transportation Answer Date Re corded In the past 12 months, has l ack of transportation kept you from medical appointments or from getting medications? No 10/09 In the past 12 months, has l ack of transportation kept you from meetings, work, or from getting things needed for daily living? No 11/03/2023 Nutrition Answer Date Recorded On average, how many serving s of fruits and vegetables do you eat per day (serving size is equal to 1 cup or approximately the size of a tennis ball)? 3-5 11/03/2023 Dental Answer Date Recorded Dental: Regular Dentist Yes 12/26/19 Employment Answer Date Recorded Employment status Retired 11/03/2023 Housing Stability Answer Date Recorded What is your living situation today? [facility] live 11/03/2023 Education Answer Date Recorded What is the highest level of school you have completed or the highest degree you have received? Bachelor's degree (e.g., BA, AB, BS) 05/09/2019 Sex and Gender Information Value Date Recorded Sex Assigned at Male 09/12/2017 10:42 AM CDT Legal Sex Male 2:46 PM NEURODIAGNOSTIC TECHNOLOGIST Gender Identity Male 09/12/2017 10:42 AM CDT Sexual Orientation Straight 09/12/2017 10 :42 AM CDT Last Filed Vital Signs Vital Sign Reading Time Taken Comments Blood Pressure 111/77 11/22/2021 1:56 PM CDT Pulse 68 11/22/2021 1:56 PM CDT Temperature 36.5 C (97.7 F) 04/19/2022 3:47 PM NEURODIAGNOSTIC TECHNOLOGIST Respiratory Rate 18 11/22/2021 1:07 PM CDT Oxygen Saturation 96% 11/22/2021 1:5 6 PM CDT Inhaled Oxygen Concentration - - Weight 122 kg (268 lb 15.4 oz) 04/19/19 3:47 PM NEURODIAGNOSTIC TECHNOLOGIST W/shoes on Height 181 cm (5' 11.26) 04/19/2022 3: 47 PM NEURODIAGNOSTIC TECHNOLOGIST W/shoes on Body Mass Index 37.24 04/19/2022 3:47 PM NEURODIAGNOSTIC TECHNOLOGIST Plan of Treatment Health Maintenance Due Date Last Done Comments CT Colonography 1950 Cologuard 1950 Hepatitis C Screening 1950 Colonoscopy 12/01/2023 11/30/2018 Colorectal Cancer Surveillance 12/01/2023 Depression Screening (Annual PHQ-2) 04/10/2024 Fall Risk Screen (Annual) 04/10/2024 COVID-19 Vaccine ( season) 2024 01/30/2024, 01/17/2023, 03/16/2022, Additional history exists Creatinine Level (Kidney Function Test) 12/20/2024 12/21/2023, 11/09/2023, 07/21/2023, Additional history exists Potassium Level 12/20/2024 12/21/2023, 07/09, 02/24/2023, Additional history exists Sodium Level 12/20/2024 12/21/2023, 07/09, 02/24/2023, Additional history exists Fasting Glucose for Diabetes Screening 12/20/2026 12/21/2023, 07/21/2023, 02/08/2023, Additional history exists DTaP,Tdap,and Td Vaccines (3 - Td or Tdap) 08/29/2032 08/29/2022, 09/30/2013, 07/12/2005 Pneumococcal vaccine (50+ years) Completed 02/08/2017, 08/28/2015 Abdominal Aortic Aneurysm (AAA) Screen Completed 04/21/2017, 04/21/2017 Zoster Vaccines Completed 02/07/2019, 11/08, 08/28/2015 RSV vaccine - (32-36 weeks) or 60+ years Completed 02/08/2023 Influenza Vaccine Completed 01/30/2024, , 01/26/2022, Additional history exists IPV Vaccines Aged Out No longer eligi ble based on patient's age to complete this topic Medical Devices Implanted Type Area Ventilation Mechanic Device Identifier Shelf Expiration Date Model / Serial / Lot Hip Implant-09/08/2017 Implanted:09/09/19 18 (Quantity not on file) Hip Implant Bilateral : Hip Knee Implant-09/09/2007 Implanted:09/09/19 08 (Quantity not on file) Knee Implant Left: Knee Spine Implant-02/23/2023 Implanted:02/24/20 23 (Quantity not on file) Spine Implant Bilateral : Spine Lumbar Description:[facility]: [facility]RS [facility] ARMSEASPINE Mariner instrument 1&2Mariner implant confirmed w/Mynor Lester [id number] 02/14 JTINSERT WINTERS CATHETER POSTERIOR SPINE FUSION L1-L2 BILATERAL, DECOMPRESSION LAMINECTOMY L1-L2 BILATERAL, INSTRUMENTATION AND BONE GRAFT, ALLOGRAFT, AUTOGRAFT Procedures Procedure Name Priority Date/Time Associated Diagnosis Comments BASIC METABOLIC PANEL, S/P Routine 01/21/2021 11:23 AM CDT Cough Unspecified Type from Last 3 Months or Most Recently Relevant to Health Maintenance Results * Basic Metabolic Panel (01/21/2021 11:23 AM CDT) Potassium, S 4.3 3.6 - 5.2 mmol/L 01/21/2021 12:40 PM CDT DTL Sodium, S 141 135 - 145 mmol/L 01/21/2021 12:40 PM CDT DTL Chloride, S 103 98 - 107 mmol/L 01/21/2021 12:40 PM CDT DTL Bicarbonate, S 27 22 - 29 mmol/L 01/21/2021 12:40 PM CDT DTL Anion Gap 11 7 - 15 01/21/2021 12:40 PM CDT DTL BUN (Blood Urea Nitrogen), S 19 8 - 24 mg/dL 01/21/2021 12:40 PM CDT DTL Creatinine 1.12 0.74 - 1.35 mg/dL 01/21/2021 12:40 PM CDT DTL eGFR-Non Black/ 66 >=60 mL/min/BSA 01/21/2021 12:40 PM CDT DTL Comment: ----ADDITIONAL INFORMATION---- Estimated GFR calculated using the 2009 CKD_EPI creatinine equation. eGFR-Black/Afric an [place]an 77 >=60 mL/min/BSA 01/21/2021 12:40 PM CDT DTL Comment: ----ADDITIONAL INFORMATION---- Estimated GFR calculated using the 2009 CKD_EPI creatinine equation. Calcium, Total, S 9.4 8.8 - 10.2 mg/dL 01/21/2021 12:40 PM CDT DTL Glucose, S 91 70 - 140 mg/dL 01/21/2021 12:40 PM CDT DTL Blood (Blood, Venous) 01/21/2021 11:23 AM CDT 01/21/2021 12:15 PM CDT us Layne Nguyen M.D. LAB BLOOD ADD-ON Final Resul t [facility] [address] [place] [address], [facility] [address] [place] [address] from Last 3 Months or Most Recently Relevant to Health Maintenance Insurance MEDICARE [facility] Care Teams Forms Examiner Relationship Specialty Start Date End Date Elsewhere, Pcp PCP - General Internal Medicine 01/10/22
--- NOTE | 2024-09-05 14:56 | ED.ARRPALP ---
HPI - Arrhythmia/Palpitations General Date Seen: 09/05/24 Chief Complaint: Arrhythmia/Palpitations Stated Complaint: irregular heartbeat Time Seen by Provider: 09/05/24 14:31 Source: patient Mode of arrival: ambulatory Limitations: no limitations History of Present Illness HPI narrative: patient is a 74-year-old male presenting to the emergency department for concern of his heart skipping a beat. States he was mowing lawn and doing yd work please add check his pulse. Do a section is falls he states it felt like his heart was skipping beats. Does have a known history of AFib with an ablation back in 2018. States he has had infrequent episodes of AFib since then. States other than that he feels like his heart has been beating normally. Has not noticed any chest pain or shortness of breath. States he feels tired today but does admit to not sleep well last night. Denies fevers, chills, weakness, numbness, headache, vision changes, abdominal pain. Does not remember episodes like this before. States he has felt this post before and felt that skip a beat but states it is much more frequently now. Related Data Home Medications ?Medication ?Instructions ?Recorded ?Confirmed apixaban 5 mg tablet (Eliquis) 5 mg PO BID 03/12/23 09/05/24 diltiazem HCl 240 mg 240 mg PO DAILY 03/12/23 09/05/24 capsule,extended release 24 hr, controlled hydrochlorothiazide 25 mg tablet 25 mg PO DAILY 03/12/23 09/05/24 losartan 100 mg tablet 100 mg PO DAILY 03/12/23 09/05/24 tamsulosin 0.4 mg capsule 0.8 mg PO DAILY 03/12/23 09/05/24 metoprolol tartrate 25 mg tablet 25 mg PO BID PRN 09/26/23 09/05/24 calcipotriene 0.005 % topical cream 1 applic topical QAM 01/30/24 09/05/24 ketoconazole 2 % topical cream 1 applic topical PRN 01/30/24 06/21/24 triamcinolone acetonide 0.1 % 1 applic topical BID-TID 01/30/24 09/05/24 topical cream Allergies Allergy/AdvReac Type Severity Reaction Status Date / Time clarithromycin Allergy Verified 09/05/24 14:24 lisinopril Allergy Verified 09/05/24 14:24 celecoxib (From Celebrex) AdvReac Rash Verified 09/05/24 14:24 Review of Systems Status of ROS: Reports: 10 or more systems reviewed and unremarkable except as noted in History and below PFSH PFSH Medical History Psoriasis ?L40.9 - Psoriasis, unspecified (ICD-10) Surgical History History of incision and drainage (02/2023) ?Z98.890 - Other specified postprocedural states (ICD-10) S/P lumbar spinal fusion (02/23/23) ?Z98.1 - Arthrodesis status (ICD-10) S/P left knee arthroscopy (08/31/95) ?Z98.890 - Other specified postprocedural states (ICD-10) S/P osteotomy of left tibial tuberosity (06/15/00) ?Z98.890 - Other specified postprocedural states (ICD-10) History of arthroscopy of right shoulder (07/15/05) ?Z98.890 - Other specified postprocedural states (ICD-10) S/P right knee arthroscopy (02/09/11) ?Z98.890 - Other specified postprocedural states (ICD-10) 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) ?Z96.641 - Presence of right artificial hip joint (ICD-10) History of cardiac radiofrequency ablation ?Z98.890 - Other specified postprocedural states (ICD-10) 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) ?Z96.652 - Presence of left artificial knee joint (ICD-10) H/O hernia repair ?Z98.890 - Other specified postprocedural states (ICD-10) ?Z87.19 - Personal history of other diseases of the digestive system (ICD-10) 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) ?Z96.642 - Presence of left artificial hip joint (ICD-10) History of total right hip replacement (02/10/16) ?Z96.641 - Presence of right artificial hip joint (ICD-10) Social History Narrative: former smoker, quit 1983 Smoking Status: Former smoker What tobacco products do you use: cigarettes Smoking quit date/years: >15 years ago Do you use any of these nicotine containing products: None Second hand tobacco smoke exposure: No How often do you have a drink containing alcohol: never How often do you have six or more drinks on one occasion: Never AUDIT-C Alcohol total score: 0 Non-prescribed substance use: denies use Exam Narrative: Exam Narrative: Const: Well-nourished, Well-developed, in No distress Eyes: PERRL, no conjunctival injection, and symmetrical lids HENT: Atraumatic external nose and ears. Moist mucous membranes. Neck: Symmetric, trachea midline, No thyromegaly. CVS: RRR, No murmurs or gallops. Peripheral pulses 2+ and equal in all extremities RESP: Unlabored respiratory effort. Clear to auscultation bilaterally. GI: Nontender/Nondistended, No rebound or guarding. MSK:Extremities w/o deformity, Normal Active ROM Skin: Warm, Dry. No rashes or lesions. Neuro: Normal Muscle tone, No focal neurological deficits. Psych: Awake, Alert, & Oriented x3. Appropriate mood and affect. Const: Vital Signs, click to edit/add: Vital Signs - 24 hr 09/05/24 14:17 09/05/24 14:37 09/05/24 14:45 Temperature 98.3 F Pulse Rate 73 70 Pulse Rate [Pulse Oximeter] 79 Respiratory Rate 16 19 14 Blood Pressure Blood Pressure [Ri ght Upper Arm] 144/76 H Pulse Oximetry 95 97 96 Oxygen Delivery Me thod Room Air 09/05/24 14:47 09/05/24 15:00 09/05/24 15:11 Temperature Pulse Rate 63 53 L 61 Pulse Rate [Pulse Oximeter] Respiratory Rate 9 L 19 12 Blood Pressure 133/97 H 132/80 Blood Pressure [Ri ght Upper Arm] Pulse Oximetry 97 93 97 Oxygen Delivery Me thod Room Air 09/05/24 15:15 09/05/24 15:30 09/05/24 15:33 Temperature Pulse Rate 56 L 69 57 L Pulse Rate [Pulse Oximeter] Respiratory Rate 6 L 15 12 Blood Pressure 128/85 Blood Pressure [Ri ght Upper Arm] Pulse Oximetry 96 94 92 Oxygen Delivery Me thod 09/05/24 15:45 09/05/24 16:00 09/05/24 16:02 Temperature Pulse Rate 60 58 L 52 L Pulse Rate [Pulse Oximeter] Respiratory Rate 20 27 H 16 Blood Pressure 135/82 Blood Pressure [Ri ght Upper Arm] Pulse Oximetry 93 95 94 Oxygen Delivery Me thod Room Air Course Vital Signs Vital signs: Initial Vital Signs Temperature 98.3 F 09/05/24 14:17 Temperature Source Temporal Artery Scan 09/05/24 14:17 Pulse Rate 79 09/05/24 14:17 Respiratory Rate 16 09/05/24 14:17 Blood Pressure 144/76 H 09/05/24 14:17 Blood Pressure Mean 98 09/05/24 14:17 Blood Pressure Position Sitting 09/05/24 14:17 Pulse Oximetry 95 09/05/24 14:17 Oxygen Delivery Method Room Air 09/05/24 14:17 Vital Signs Temperature 98.3 F 09/05/24 14:17 Pulse Rate 79 09/05/24 14:17 Respiratory Rate 16 09/05/24 14:17 Blood Pressure 144/76 H 09/05/24 14:17 Pulse Oximetry 95 09/05/24 14:17 Oxygen Delivery Method Room Air 09/05/24 14:17 Temperature 98.3 F 09/05/24 14:17 Pulse Rate 52 L 09/05/24 16:02 Respiratory Rate 16 09/05/24 16:02 Blood Pressure 135/82 09/05/24 16:02 Pulse Oximetry 94 09/05/24 16:02 Oxygen Delivery Method Room Air 09/05/24 16:02 MDM - Arrhythmia/Palpitations MDM Narrative Medical decision making narrative: patient is a 74-year-old male presenting to emergency department for concerns that his heart is skipping a beat. EKG was done showing a he does have PVCs. Heart monitor showing frequent PVCs. They occur every 5-10 seconds of looks like. He is satting normal on room air. overall the EKG she does not concerning. Does have a normal intervals. Will order an EKG, CBC, magnesium, BMP, TSH, troponin. He is not having any other concerning symptoms at this time. lab work returned showing no acute concerning abnormalities. This time I believe he is safe for discharge. He continues to do well while he is here. no signs of syncopal episodes or other concerning issues. Lab Data Labs: Lab Results 09/05/24 Range/Units 14:50 WBC 8.72 (4.50-11.00) K/uL RBC 4.67 (4.30-5.90) m/uL Hgb 14.5 (13.5-17.5) gm/dL Hct 41.9 (37.0-53.0) % MCV 90 (80-100) fL MCH 31 (26-34) pg MCHC 35 (32-36) gm/dL RDW Coeff of Carlos 13.1 (11.5-15.5) % Plt Count 169 (140-440) K/uL Neut % (Auto) 77.8 H (42.0-72.0) % Lymph % (Auto) 11.1 L (20-44) % [place] % (Auto) 8.8 (0.0-11.0) % Eos % (Auto) 0.9 (0.0-7.0) % Baso % (Auto) 0.3 (0.0-3.0) % Neut # (Auto) 6.80 (1.7-7.0) K/uL Lymph # (Auto) 1.00 (0.90-2.90) K/uL [place] # (Auto) 0.80 (0.00-0.90) K/UL Eos # (Auto) 0.08 (0.00-0.50) K/uL Baso # (Auto) 0.03 (0.00-0.30) K/uL Abs Immat Gran (auto) 0.10 (0.00-0.30) K/uL Imm/Tot Granulo (auto) 1.1 % Sodium 136 (135-149) mmol/L Potassium 3.9 (3.6-5.1) mmol/L Chloride 102 (96-114) mmol/L Carbon Dioxide 28 (20-32) mmol/L Anion Gap 6 L (7-15) mEq/L BUN 21 (7-30) mg/dL Creatinine 1.0 (0.5-1.5) mg/dL Estimated Creat Clear 69.03 Estimated GFR 79 ml/min Glucose 93 (60-115) mg/dL Calcium 9.3 (8.4-10.6) mg/dL Magnesium 1.8 (1.5-2.6) mg/dL TSH 1.550 (0.270-4.200) uIU/mL ECG Data Attestation: I personally reviewed and interpreted this ECG as follows: Prior ECG tracings: available for review Interpretation: normal sinus rhythm with a rate of 71 beats per minute, normal axis, no ST or T-wave abnormalities. There is PVCs. Appears relatively similar to previous EKG other than PVCs not seen. Incomplete right bundle lisy block is still there. Discharge Plan Discharge Clinical Impression: Ventricular premature beats Patient Disposition: Home, Self-Care Condition: Stable Instructions: Premature Ventricular Contractions (ED) Additional Instructions: Your having premature ventricular contractions. These typically benign condition and a relatively common. If you start feeling lightheaded or develop any new or worsening symptoms please return for re-evaluation. Can follow up with your primary provider in clinic to review this further, please schedule a follow up. Prescriptions: No Action ketoconazole 2 % cream 1 applic topical PRN calcipotriene 0.005 % cream 1 applic topical QAM triamcinolone acetonide 0.1 % cream 1 applic topical BID-TID metoprolol tartrate 25 mg tablet 25 mg PO BID PRN diltiazem HCl 240 mg capsule,ext.rel 24h degradable 240 mg PO DAILY tamsulosin 0.4 mg capsule 0.8 mg PO DAILY hydrochlorothiazide 25 mg tablet 25 mg PO DAILY losartan 100 mg tablet 100 mg PO DAILY Eliquis 5 mg tablet 5 mg PO BID Follow Up/Referrals: David Zimmer MD [Primary Care Provider, Family Practice] Stand Alone Forms: [employer] Info Instructions
[2024-09-05 15:08] LABS: Basophils Absolute Auto 0.03 K/uL (0.00-0.30); Basophils Percent Auto 0.3 % (0.0-3.0); Eosinophils Absolute Auto 0.08 K/uL (0.00-0.50); Eosinophils Percent Auto 0.9 % (0.0-7.0); Hematocrit 41.9 % (37.0-53.0); Hemoglobin* 14.5 gm/dL (13.5-17.5); Immature Granulocytes Pct Auto 1.1 %; Lymphocytes Percent Auto 11.1 % (20-44); Mean Corpuscular HGB Conc 35 gm/dL (32-36); Mean Corpuscular Hemoglobin 31 pg (26-34); Mean Corpuscular Volume 90 fL (80-100); Monocytes Percent Auto 8.8 % (0.0-11.0); Neutrophils Percent Auto 77.8 % (42.0-72.0); Platelet Count* 169 K/uL (140-440); RDW Coefficient of Variation % 13.1 % (11.5-15.5); Red Blood Count 4.67 m/uL (4.30-5.90); White Blood Count* 8.72 K/uL (4.50-11.00)
[2024-09-05 15:31] LABS: Slide Review Reflex No
[2024-09-05 15:46] LABS: Chloride* 102 mmol/L (96-114); Sodium* 136 mmol/L (135-149)
[2024-09-05 15:47] LABS: Potassium* 3.9 mmol/L (3.6-5.1)
[2024-09-05 15:49] LABS: Blood Urea Nitrogen* 21 mg/dL (7-30); Carbon Dioxide* 28 mmol/L (20-32); Est. Creatinine Clearance* 69.03; Estimated Glomerular Filt Rate 79 ml/min
[2024-09-05 15:50] LABS: Anion Gap 6 mEq/L (7-15); Calcium* 9.3 mg/dL (8.4-10.6); Glucose* 93 mg/dL (60-115); Magnesium* 1.8 mg/dL (1.5-2.6)
== END 2024-09-05 17:11 | disposition home or self-care (01) ==
PROVIDERS: Student in an Organized Health Care Education/Training Program; Emergency Provider Family Medicine; PCP Family Medicine
DX: I49.3 Ventricular premature depolarization (principal)
CPT/HCPCS: 36415; 80048; 83735; 84443; 84484; 85025; 99284